=== PATIENT | male | born 1960 | race Caucasian/White ===

== ENCOUNTER → 2021-12-05 15:13 | Outpatient (BNVA) | payer OTHER, SELFPAY | PROVIDERS: Visit Provider Nurse Practitioner Family ==

== ENCOUNTER → 2021-12-13 13:48 | Outpatient (BNVA) | payer OTHER, SELFPAY | PROVIDERS: PCP Internal Medicine; Visit Provider Psychiatry & Neurology Neurology | DX: G43.711 Chronic migraine without aura, intractable, with status migrainosus (principal) | CPT/HCPCS: 64615; J0585 ==

== ENCOUNTER → 2022-03-14 13:25 | Outpatient (BNVA) | payer OTHER, SELFPAY | PROVIDERS: PCP Internal Medicine; Visit Provider Psychiatry & Neurology Neurology | DX: G43.711 Chronic migraine without aura, intractable, with status migrainosus (principal) | CPT/HCPCS: 64615; J0585 ==

== ENCOUNTER → 2022-06-15 13:52 | Outpatient (BNVA) | payer OTHER, SELFPAY | PROVIDERS: PCP Internal Medicine; Visit Provider Psychiatry & Neurology Neurology | DX: G43.711 Chronic migraine without aura, intractable, with status migrainosus (principal) | CPT/HCPCS: 64615; J0585 ==

== ENCOUNTER → 2022-09-19 13:57 | Outpatient (BNVA) | payer OTHER, SELFPAY | PROVIDERS: PCP Internal Medicine; Visit Provider Psychiatry & Neurology Neurology | DX: G43.119 Migraine with aura, intractable, without status migrainosus (principal); G43.711 Chronic migraine without aura, intractable, with status migrainosus | CPT/HCPCS: 64615; J0585 ==

== ENCOUNTER → 2022-10-20 14:32 | Outpatient (BNVA) | payer OTHER, SELFPAY | PROVIDERS: PCP Internal Medicine; Visit Provider Nurse Practitioner Family | DX: Z13.89 Encounter for screening for other disorder (principal) ==

== ENCOUNTER → 2022-12-19 13:52 | Outpatient (BNVA) | payer OTHER, SELFPAY | PROVIDERS: PCP Internal Medicine; Visit Provider Psychiatry & Neurology Neurology | DX: G43.711 Chronic migraine without aura, intractable, with status migrainosus (principal) | CPT/HCPCS: 64615; J0585 ==

== ENCOUNTER → 2023-01-16 14:51 | Outpatient (BNVA) | payer OTHER, SELFPAY | PROVIDERS: PCP Internal Medicine; Visit Provider Nurse Practitioner Family | DX: Z13.89 Encounter for screening for other disorder (principal) ==

== ENCOUNTER → 2023-03-22 12:24 | Outpatient (BNVA) | payer OTHER, SELFPAY | PROVIDERS: PCP Internal Medicine; Visit Provider Psychiatry & Neurology Neurology | DX: G43.711 Chronic migraine without aura, intractable, with status migrainosus (principal); Z79.899 Other long term (current) drug therapy | CPT/HCPCS: 64615; J0585 ==

== ENCOUNTER 2023-04-23 11:31 | Outpatient (AMB) | payer OTHER, SELFPAY ==
[2023-04-23 11:43] VITALS: BP 110/78; PULSE 63; O2SAT 97; BMI 27.3
--- NOTE | 2023-04-23 11:43 | A.OFFVIS_ITS ---
Intake Vital Signs 04/23/23 11:43 Height 5 ft 10 in Weight 190 lb 2 oz BMI 27.3 BP 110/78 Blood Pressure Location Lt brachial Position Sitting Pulse 63 Pulse Source Pulse Oximeter Pulse Oximetry (%) 97 Oxygen Delivery Method Room Air Intake Visit Reasons: 3m follow up Intake Note: Pt presents as a 3 month f/u. the last 8 days have been problematic, a little more stress than usual and trouble with humidity. Office Specialist Required: No Allergies No Known Allergies Allergy (Verified 04/23/23 11:46) HPI HPI Comments History of Present Illness Details 62-yr-old male presents for f/u visit. Pt denies any significant interval medical changes. Pt states he is doing well w/ his current migraine routine, has had a slight increase in headaches over the last 8 days r/t some increased stress and increased humidity/weather changes. Pt reports prior to starting Botox- was having daily headache w/ significant disability (missing work, missing family activities) and needed to take acute migraine/headache medication at least 3 times a week. On just Botox, he had residual episodic migraines- however migraines still lasted up to 3 days and did not respond as well to his acute migraine medications. On current Botox and Nurtec ODT 75mg qod for prevention regimen- He has has 2 severe migraine days a month. 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 [employer] Review of Systems Const All systems reviewed & are unremarkable except as noted in HPI and below Physical Exam Vital Signs: Last Vital Signs Pulse 63 04/23/23 11:43 BP 110/78 04/23/23 11:43 Pulse Ox 97 04/23/23 11:43 Oxygen Delivery Method Room Air 04/23/23 11:43 BMI result Body Mass Index 27.3 Const General: cooperative and no acute distress Orientation/consciousness: patient oriented x3 HEENT Head: Yes normocephalic Resp Effort & Inspection: normal respiratory effort and able to speak in complete sentences Neuro General: patient oriented x3, gait normal and CN's II-XI intact bilaterally Cognition (Neuro): normal cognition Motor exam (neuro): 5/5 motor strength present throughout Psych Appearance: grossly normal Mental Status: mental status grossly normal Speech and movement: Normal speech and movement present Affect: normal affect Attitude: cooperative Thought process: Normal thought process present Thought content: Normal thought content present Insight: Good insight present (Psych) Judgement: Good judgement present (Psych) Assessment & Plan Assessment & Plan (1) Chronic migraine without aura: Code(s): G43.709 - Chronic migraine without aura, not intractable, without status migrainosus (2) Tremor: Code(s): R25.1 - Tremor, unspecified (3) Migraine with aura: Code(s): G43.109 - Migraine with aura, not intractable, without status migrainosus (4) Photophobia: Code(s): H53.149 - Visual discomfort, unspecified Plan For acute migraine tx: Continue Zomig 5mg nasal spray- 1 spray into 1 nostril, may repeat in 2 hours (max 2 sprays per day). May adjunct w/ Naproxen. Continue Ubrelvy 50-100mg at onset of migraine, may repeat in 2 hrs (max 200mg/day). May adjunct w/ Naproxen or Zomig. Previous acute migraine trials:?imitrex, relpax, maxalt, amerge , midrin, zomig tablet- not fully effective ? For migraine prevention: Start Nerivio- 1 tx qod for rpevention- and may use qd prn. Continue Nurtec ODT 75mg qod. Continue Botox 155 units IM q 3 months. Continue Propranolol ER 60mg qhs- would not increase further d/t pt has intermittent SOB and asthma. Continue Depakote 500mg qd- ordered for mood, would not increase further d/t pt has tremor s/s. Previous preventive migraine tx trials: Amitriptyline, topiramate , verapramil, gabapentin- ineffective. atogepant- not tolerated- nausea/GI upset/ ? f/u? as scheduled for next Botox tx, and in 3 months w/ PAIRER INSPECTOR. Coding Level of Care Code Est Pt Level 4 (81551) Diagnoses Chronic migraine without aura G43.709 Tremor R25.1 Migraine with aura G43.109 Photophobia H53.149
== END 2023-04-23 12:28 | disposition home or self-care (01) ==
PROVIDERS: Visit Provider Nurse Practitioner Family
DX: G43.709 Chronic migraine without aura, not intractable, without status migrainosus (principal); R25.1 Tremor, unspecified; G43.109 Migraine with aura, not intractable, without status migrainosus; H53.149 Visual discomfort, unspecified
CPT/HCPCS: 99214

== ENCOUNTER → 2023-04-23 11:31 | Outpatient (BNVA) | payer OTHER, SELFPAY | PROVIDERS: Visit Provider Nurse Practitioner Family ==

== ENCOUNTER 2023-06-28 07:28 | Outpatient (AMB) | payer OTHER, SELFPAY ==
--- NOTE | 2023-06-28 07:33 | MHC.OFFVIS ---
Intake Vital Signs 06/28/23 07:35 Weight 194 lb 8 oz BP 86/52 L Blood Pressure Location Rt brachial Position Sitting Pulse 52 Pulse Source Pulse Oximeter Pulse Oximetry (%) 100 Oxygen Delivery Method Room Air Intake Visit Reasons: BOTOX-confirmed Intake Note: Botox Injection Lamp Stack Developer Required: No Allergies No Known Allergies Allergy (Verified 06/28/23 07:33) Medication List - Last Reconciled 06/28/23 by Yvette Smith MD atorvastatin 10 mg PO DAILY divalproex ER 250mg in the am, 500 mg orally at night; escitalopram oxalate 5 mg PO DAILY propranolol ER 60 mg PO DAILY quetiapine 100 mg PO DAILY rimegepant 75 mg PO Q OTHER DAY sumatriptan succinate 0 mg PO tadalafil 5 mg PO DAILY ubrogepant 1/2 - 1 tab at onset of migraine, may repeat in 2 hours (max 200mg/day) orally ; PRN; 90 days zolmitriptan (Zomig) 1 spray intranasal Q2H PRN 30 days HPI HPI Comments History of Present Illness Details ? 62y/o female comes for treatment of migraines with botox. He is on Zomig 5mg nasal spray- 1 spray into 1 nostril, may repeat in 2 hours (max 2 sprays per day). May adjunct w/ Naproxen. Ubrelvy 50-100mg at onset of migraine, may repeat in 2 hrs (max 200mg/day). May adjunct w/ Naproxen. Previous acute migraine trials:?imitrex, relpax, maxalt, amerge , midrin, zomig tablet- not fully effective For migraine prevention: Nurtec ODT 75mg qod. Botox 155 units IM q 3 months. Propranolol ER 60mg qhs- would not increase further d/t pt has intermittent SOB and asthma. Depakote 500mg qd- His headache days have decreased to 1-2/month with the above regimen. Most frequent reported adverse reactions following injection of botox for chronic migraine include neck pain (9%), headache(5%), eyelid ptosis(4%), migraine(4%), muscular weakness(4%), musculuskeletal stiffness(4%), bronchitis(3%), injection site pain (3%), musculoskeletal pain(3%), myalgia(3%), facial paresis(2%), HTN(2%) and muscle spasms(2%) were discussed in detail. ??? Botulinum toxin typeA 200units Lot no C [id number] expiration 2025 was diluted with 4 cc of normal saline . ??? Muscles injected- ??? Frontalis 4 sites ??? Procerus 1 site ??? Museum Attendant- 2 sites ??? Temporalis- 8 sites ??? Occipitalis- 6 sites ??? Cervical paraspinals- 4 sites ??? Trapezius- 6 sites- 10 units each ??? 5 units each in 31 site ??? Total use- 185units ??? 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[employer] Physical Exam Vital Signs: Last Vital Signs Pulse 52 06/28/23 07:35 BP 86/52 L 06/28/23 07:35 Pulse Ox 100 06/28/23 07:35 Oxygen Delivery Method Room Air 06/28/23 07:35 Const General: cooperative and no acute distress Orientation/consciousness: patient oriented x3 HEENT Head: Yes normocephalic Resp Effort & Inspection: normal respiratory effort and able to speak in complete sentences Neuro General: patient oriented x3, gait normal and CN's II-XI intact bilaterally Cognition (Neuro): normal cognition Motor exam (neuro): 5/5 motor strength present throughout Office Procedures Botulinum toxin Injection 16103 - Migraine Procedure code (CPT) selection complete Office Meds onabotulinumtoxinA 200 unit solution for injection Performing Provider: Yvette Smith MD Performing Location: [facility] Administered by: Yvette Smith MD on 06/28/23 08:07 Dose Route Admin Location Dispensed Lot Number Expiration Date [facility] Oil Field Operator 185 unit subcut 200 units [id number] 11/08/25 2488-4237-09 ALLERGAN/BOTOX Comments: see HPI Assessment & Plan Assessment & Plan (1) Chronic migraine without aura, intractable, with status migrainosus: Code(s): G43.711 - Chronic migraine without aura, intractable, with status migrainosus (2) Migraine with aura, intractable, without status migrainosus: Code(s): G43.119 - Migraine with aura, intractable, without status migrainosus Plan Patient tolerated the procedure well He will call with any side effects The tremors are likely exaggerated physiological tremors - will follow up clinically Orders: Orders AMB Botulinum toxin Injection Today G43.709 - Chronic migraine without aura, not intractable, without status migrainosus Coding Level of Care Code Est Pt Level 1 (54932) Diagnoses Chronic migraine without aura, intractable, with status migrainosus G43.711 Migraine with aura, intractable, without status migrainosus G43.119 CPT Codes Botox Injection - Botox 3: 46184 - Migraine ([id number])
[2023-06-28 07:35] VITALS: BP 86/52; PULSE 52; O2SAT 100
== END 2023-06-28 08:03 | disposition home or self-care (01) ==
PROVIDERS: PCP Internal Medicine; Visit Provider Psychiatry & Neurology Neurology
DX: G43.711 Chronic migraine without aura, intractable, with status migrainosus (principal)
CPT/HCPCS: 64615

== ENCOUNTER → 2023-06-28 07:28 | Outpatient (BNVA) | payer OTHER, SELFPAY | PROVIDERS: PCP Internal Medicine; Visit Provider Psychiatry & Neurology Neurology | DX: G43.711 Chronic migraine without aura, intractable, with status migrainosus (principal); G43.119 Migraine with aura, intractable, without status migrainosus | CPT/HCPCS: 64615; 99211; J0585 ==

== ENCOUNTER 2023-08-06 11:23 | Outpatient (AMB) | payer OTHER, SELFPAY ==
--- NOTE | 2023-08-06 11:25 | A.OFFVIS_ITS ---
Intake Vital Signs 08/06/23 11:26 Height 5 ft 10 in Weight 193 lb BMI 27.7 BP 112/76 Blood Pressure Location Rt brachial Position Sitting Intake Visit Reasons: 3m follow up-Confirmed Intake Note: Patient presents for 3 month follow up. Patient states no issues or concerns today. Allergies No Known Allergies Allergy (Verified 08/06/23 11:28) Medication List - Last Reconciled 08/06/23 by STARLA Sosa atorvastatin 10 mg PO DAILY divalproex ER 250mg in the am, 500 mg orally at night; escitalopram oxalate 5 mg PO DAILY propranolol ER 60 mg PO DAILY quetiapine 100 mg PO DAILY rimegepant 75 mg PO Q OTHER DAY sumatriptan succinate 0 mg PO tadalafil 5 mg PO DAILY ubrogepant 1/2 - 1 tab at onset of migraine, may repeat in 2 hours (max 200mg/d ay) orally ; PRN; 90 days zolmitriptan (Zomig) 1 spray intranasal Q2H PRN 30 days HPI HPI Comments History of Present Illness Details 62-yr-old male presents for f/u visit. Pt denies any significant interval medical changes. He did have a mild head cold 2 weeks ago- has some residual cough. Pt reports he is doing overall well in terms of migraine- states the Botox is quite helpful. He has had a few breakthrough migraine attacks which lasted 2-3 days- rated < 5/10. One of which was triggered by the above cold. Usually the migraine does respond to his usual as needed meds. However, last Sun, the migraine did not respond to his usual acute tx. He was able to work but was very phonophobic- usually quite photophobic during migraine. Uses ear plugs to sleep. He has started using the Nerivio, which has been helpful outside of the last migraine attack. He is using the Ubrelvy with it. Still using the Zomig for more severe migarien. He stopped the Nurtec- was not helpful and co-pay increased to $75. 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 Review of Systems Const All systems reviewed & are unremarkable except as noted in HPI and below Physical Exam Vital Signs: Last Vital Signs BP 112/76 08/06/23 11:26 BMI result Body Mass Index 27.7 Const General: cooperative and no acute distress Orientation/consciousness: patient oriented x3 HEENT Head: Yes normocephalic Resp Effort & Inspection: normal respiratory effort and able to speak in complete sentences Neuro General: patient oriented x3, gait normal and CN's II-XI intact bilaterally Cognition (Neuro): normal cognition Motor exam (neuro): 5/5 motor strength present throughout Psych Appearance: grossly normal Mental Status: mental status grossly normal Speech and movement: Normal speech and movement present Affect: normal affect Attitude: cooperative Thought process: Normal thought process present Thought content: Normal thought content present Insight: Good insight present (Psych) Judgement: Good judgement present (Psych) Assessment & Plan Assessment & Plan (1) Chronic migraine without aura, intractable, with status migrainosus: Code(s): G43.711 - Chronic migraine without aura, intractable, with status migrainosus (2) Phonophobia: Code(s): F40.298 - Other specified phobia Plan For acute migraine tx: Try ear plugs during migraine- such as loop engage. Continue Zomig 5mg nasal spray- 1 spray into 1 nostril, may repeat in 2 hours (max 2 sprays per day). May adjunct w/ Naproxen. Continue Ubrelvy 50-100mg at onset of migraine, may repeat in 2 hrs (max 200mg/day). May adjunct w/ Naproxen or Zomig. Previous acute migraine trials:?imitrex, relpax, maxalt, amerge , midrin, zomig tablet- not fully effective ? For migraine prevention: Try to use Nerivio- 1 tx qod for prevention- and may use qd prn. Pt stopped Nurtec ODT 75mg qod. Continue Botox 155 units IM q 3 months. Continue Propranolol ER 60mg qhs- would not increase further d/t pt has intermittent SOB and asthma. Continue Depakote 500mg qd- ordered for mood, would not increase further d/t pt has tremor s/s. Previous preventive migraine tx trials: Amitriptyline, topiramate , verapramil, gabapentin- ineffective. atogepant- not tolerated- nausea/GI upset/ ? f/u? as scheduled for next Botox tx, and in 6 months w/ MECHANICAL AND AUTO BODY CAR CHECKER. Medications: New onabotulinumtoxinA (Botox) inject 155 units IM across forehead, scalp, and neck 200 units IM ONCE 12 weeks 1 ea 3RF G43.709 - Chronic migraine without aura, not intractable, without status migrainosus Coding Level of Care Code Est Pt Level 4 (20210) Diagnoses Chronic migraine without aura, intractable, with status migrainosus G43.711 Phonophobia F40.298
[2023-08-06 11:26] VITALS: BP 112/76; BMI 27.7
== END 2023-08-06 12:14 | disposition home or self-care (01) ==
PROVIDERS: PCP Internal Medicine; Visit Provider Nurse Practitioner Family
DX: G43.711 Chronic migraine without aura, intractable, with status migrainosus (principal); F40.298 Other specified phobia
CPT/HCPCS: 99214

== ENCOUNTER → 2023-08-06 11:23 | Outpatient (BNVA) | payer OTHER, SELFPAY | PROVIDERS: PCP Internal Medicine; Visit Provider Nurse Practitioner Family ==

== ENCOUNTER 2023-09-27 09:19 | Outpatient (AMB) | payer OTHER, SELFPAY ==
[2023-09-27 09:33] VITALS: BP 90/52; PULSE 52; RESP 16; O2SAT 95; BMI 26.9
--- NOTE | 2023-09-27 09:33 | A.OFFVIS_ITS ---
Intake Vital Signs 09/27/23 09:33 Height 5 ft 10 in Weight 187 lb 4 oz BMI 26.9 BP 90/52 L Blood Pressure Location Lt brachial Position Sitting Respiration 16 Pulse 52 Pulse Source Pulse Oximeter Pulse Oximetry (%) 95 Oxygen Delivery Method Room Air Intake Visit Reasons: Botox appt - LVM Intake Note: Pt presents to the office for Botox injections. Oracle Scm Consultant Required: No Allergies No Known Allergies Allergy (Verified 09/27/23 09:33) HPI HPI Comments History of Present Illness Details ? 62y/o female comes for treatment of migraines with botox. How many migraine days prior to botox 25/month How long do the migraines last 2-3 days Intensity of migraine9/10 ER visits related to migraine 2 Effectiveness of botox from last two treatment(s) How many migraine days since receiving treatment: 1-2/month Change? in intensity of migraine?decreased Change in frequency of migraine?decreased Change in use of acute medication for migraine?decreased Change in quality of life?good ER visits related to migraine? none Have at least three months elapsed since last treatment (Last botox date - f requency of injections)- 06/2023 He is on Zomig 5mg nasal spray- 1 spray into 1 nostril, may repeat in 2 hours (max 2 sprays per day). May adjunct w/ Naproxen. Ubrelvy 50-100mg at onset of migraine, may repeat in 2 hrs (max 200mg/day). May adjunct w/ Naproxen. Previous acute migraine trials:?imitrex, relpax, maxalt, amerge , midrin, zomig tablet- not fully effective For migraine prevention: Nurtec ODT 75mg qod. Botox 155 units IM q 3 months. Propranolol ER 60mg qhs- would not increase further d/t pt has intermittent SOB and asthma. Depakote 500mg qd- His headache days have decreased to 1-2/month with the above regimen. Most frequent reported adverse reactions following injection of botox for chronic migraine include neck pain (9%), headache(5%), eyelid ptosis(4%), migraine(4%), muscular weakness(4%), musculuskeletal stiffness(4%), bronchitis(3%), injection site pain (3%), musculoskeletal pain(3%), myalgia(3%), facial paresis(2%), HTN(2%) and muscle spasms(2%) were discussed in detail. ??? Botulinum toxin typeA 200units Lot no C [id number] expiration 2025 was diluted with 4 cc of normal saline . ??? Muscles injected- ??? Frontalis 4 sites ??? Procerus 1 site ??? Workflow Developer- 2 sites ??? Temporalis- 8 sites ??? Occipitalis- 6 sites ??? Cervical paraspinals- 4 sites ??? Trapezius- 6 sites- 10 units each ??? 5 units each in 31 site ??? Total use- 185units ??? 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 Vital Signs: Last Vital Signs Pulse 52 09/27/23 09:33 Resp 16 09/27/23 09:33 BP 90/52 L 09/27/23 09:33 Pulse Ox 95 09/27/23 09:33 Oxygen Delivery Method Room Air 09/27/23 09:33 BMI result Body Mass Index 26.9 Const General: cooperative and no acute distress Orientation/consciousness: patient oriented x3 HEENT Head: Yes normocephalic Resp Effort & Inspection: normal respiratory effort and able to speak in complete sentences Neuro General: patient oriented x3, gait normal and CN's II-XI intact bilaterally Cognition (Neuro): normal cognition Motor exam (neuro): 5/5 motor strength present throughout Psych Appearance: grossly normal Mental Status: mental status grossly normal Speech and movement: Normal speech and movement present Affect: normal affect Attitude: cooperative Thought process: Normal thought process present Thought content: Normal thought content present Insight: Good insight present (Psych) Judgement: Good judgement present (Psych) Office Procedures Botulinum toxin Injection 44907 - Migraine Procedure code (CPT) selection complete Office Meds onabotulinumtoxinA 200 unit solution for injection Performing Provider: Yvette Smith MD Performing Location[place] [facility] Administered by: Yvette Smith MD on 09/27/23 11:12 Dose Route Admin Location Dispensed Lot Number Expiration Date [facility] Paper Cup Machine Tender 185 unit IM 200 units [id number] 01/06/26 7254-0028-93 ALLERGAN/BOTOX Comments: see hpi Assessment & Plan Assessment & Plan (1) Chronic migraine without aura, intractable, with status migrainosus: Code(s): G43.711 - Chronic migraine without aura, intractable, with status migrainosus (2) Migraine with aura, intractable, without status migrainosus: Code(s): G43.119 - Migraine with aura, intractable, without status migrainosus Plan Patient tolerated the procedure well He will call with any side effects The tremors are likely exaggerated physiological tremors - will follow up clinically Orders: Orders AMB Botulinum toxin Injection Today G43.709 - Chronic migraine without aura, not intractable, without status migrainosus Coding Level of Care Code Est Pt Level 1 (98338) Diagnoses Chronic migraine without aura, intractable, with status migrainosus G43.711 Migraine with aura, intractable, without status migrainosus G43.119 CPT Codes Botox Injection - Botox 3: 87328 - Migraine ([id number])
== END 2023-09-27 09:54 | disposition home or self-care (01) ==
PROVIDERS: PCP Internal Medicine; Visit Provider Psychiatry & Neurology Neurology
DX: G43.711 Chronic migraine without aura, intractable, with status migrainosus (principal)
CPT/HCPCS: 64615

== ENCOUNTER → 2023-09-27 09:19 | Outpatient (BNVA) | payer OTHER, SELFPAY | PROVIDERS: PCP Internal Medicine; Visit Provider Psychiatry & Neurology Neurology | DX: G43.711 Chronic migraine without aura, intractable, with status migrainosus (principal); G43.119 Migraine with aura, intractable, without status migrainosus | CPT/HCPCS: 64615; 99211; J0585 ==

== ENCOUNTER 2023-12-27 10:18 | Outpatient (AMB) | payer OTHER, SELFPAY ==
[2023-12-27 10:20] VITALS: PULSE 65; RESP 16
--- NOTE | 2023-12-27 10:20 | A.OFFVIS_ITS ---
Intake Vital Signs 12/27/23 10:20 Respiration 16 Pulse 65 Pulse Source Palpation Intake Visit Reasons: Botox appt-LVM Intake Note: Pt presents to the office for Botox injections. Block Saw Operator Required: No Allergies No Known Allergies Allergy (Verified 12/27/23 10:20) Medication List - Last Reconciled 12/27/23 by Yvette Smith MD atorvastatin 10 mg PO DAILY divalproex ER 250mg in the am, 500 mg orally at night; escitalopram oxalate 5 mg PO DAILY onabotulinumtoxinA (Botox) 200 units IM ONCE 12 weeks propranolol ER 60 mg PO DAILY quetiapine 100 mg PO DAILY sumatriptan succinate 0 mg PO tadalafil 5 mg PO DAILY ubrogepant 1/2 - 1 tab at onset of migraine, may repeat in 2 hours (max 200mg/day) orally ; PRN; 90 days zolmitriptan (Zomig) 1 spray intranasal Q2H PRN 30 days HPI HPI Comments History of Present Illness Details ? 63y/o male comes for treatment of migraines with botox. How many migraine days prior to botox 25/month How long do the migraines last 2-3 days Intensity of migraine06/17 ER visits related to migraine 2 Effectiveness of botox from last two treatment(s) How many migraine days since receiving treatment: 1-2/month Change? in intensity of migraine?decreased Change in frequency of migraine?decreased Change in use of acute medication for migraine?decreased Change in quality of life?good ER visits related to migraine? none Have at least three months elapsed since last treatment (Last botox date - frequency of injections)- 06/2023 He is on Zomig 5mg nasal spray- 1 spray into 1 nostril, may repeat in 2 hours (max 2 sprays per day). May adjunct w/ Naproxen. Ubrelvy 50-100mg at onset of migraine, may repeat in 2 hrs (max 200mg/day). May adjunct w/ Naproxen. Previous acute migraine trials:?imitrex, relpax, maxalt, amerge , midrin, zomig tablet- not fully effective For migraine prevention: Nurtec ODT 75mg qod. Botox 155 units IM q 3 months. Propranolol ER 60mg qhs- would not increase further d/t pt has intermittent SOB and asthma. Depakote 500mg qd- His headache days have decreased to 1-2/month with the above regimen. Most frequent reported adverse reactions following injection of botox for chronic migraine include neck pain (9%), headache(5%), eyelid ptosis(4%), josé miguel nadeen(4%), muscular weakness(4%), musculuskeletal stiffness(4%), bronchitis(3%), injection site pain (3%), musculoskeletal pain(3%), myalgia(3%), facial paresis(2%), HTN(2%) and muscle spasms(2%) were discussed in detail. ??? Botulinum toxin typeA 200units Lot no C [id number] expiration 2025 was diluted with 4 cc of normal saline . ??? Muscles injected- ??? Frontalis 4 sites ??? Procerus 1 site ??? Spinneret Person- 2 sites ??? Temporalis- 8 sites ??? Occipitalis- 6 sites ??? Cervical paraspinals- 4 sites ??? Trapezius- 6 sites- 10 units each ??? 5 units each in 31 site ??? Total use- 185units ??? 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 [employer] Physical Exam Vital Signs: Last Vital Signs Pulse 65 12/27/23 10:20 Resp 16 12/27/23 10:20 Const General: cooperative and no acute distress Orientation/consciousness: patient oriented x3 HEENT Head: Yes normocephalic Resp Effort & Inspection: normal respiratory effort and able to speak in complete sentences Neuro General: patient oriented x3, gait normal and CN's II-XI intact bilaterally Cognition (Neuro): normal cognition Motor exam (neuro): 5/5 motor strength present throughout Psych Appearance: grossly normal Mental Status: mental status grossly normal Speech and movement: Normal speech and movement present Affect: normal affect Attitude: cooperative Thought process: Normal thought process present Thought content: Normal thought content present Insight: Good insight present (Psych) Judgement: Good judgement present (Psych) Office Procedures Botulinum toxin Injection 85964 - Migraine Procedure code (CPT) selection complete Office Meds onabotulinumtoxinA 200 unit solution for injection Performing Provider: Yvette Smith MD Performing Location: [facility] [place] [facility] Administered by: Yvette Smith MD on 12/27/23 10:46 Dose Route Admin Location Dispensed Lot Number Expiration Date [facility] Violin Maker Hand 185 unit IM 200 units [id number] 03/08/26 5423-8979-12 ALLERGAN/BOTOX Comments: see HPI Assessment & Plan Assessment & Plan (1) Chronic migraine without aura, intractable, with status migrainosus: Code(s): G43.711 - Chronic migraine without aura, intractable, with status migrainosus (2) Migraine with aura, intractable, without status migrainosus: Code(s): G43.119 - Migraine with aura, intractable, without status migrainosus Plan Patient tolerated the procedure well He will call with any side effects The tremors are likely exaggerated physiological tremors - will follow up clinically Orders: Orders AMB Botulinum toxin Injection - Patient Supplied Today G43.711 - Chronic migraine without aura, intractable, with status migrainosus Coding Level of Care Code Est Pt Level 1 (23647) Diagnoses Chronic migraine without aura, intractable, with status migrainosus G43.711 Migraine with aura, intractable, without status migrainosus G43.119 CPT Codes Botox Injection - Botox 3: 38984 - Migraine ([id number])
== END 2023-12-27 10:46 | disposition home or self-care (01) ==
PROVIDERS: PCP Internal Medicine; Visit Provider Psychiatry & Neurology Neurology
DX: G43.711 Chronic migraine without aura, intractable, with status migrainosus (principal)
CPT/HCPCS: 64615

== ENCOUNTER → 2023-12-27 10:18 | Outpatient (BNVA) | payer OTHER, SELFPAY | PROVIDERS: PCP Internal Medicine; Visit Provider Psychiatry & Neurology Neurology | DX: G43.711 Chronic migraine without aura, intractable, with status migrainosus (principal) | CPT/HCPCS: 64615; 99211; J0585 ==

== ENCOUNTER 2024-02-06 10:47 | Outpatient (AMB) | payer OTHER, SELFPAY ==
--- NOTE | 2024-02-06 10:57 | MHC.OFFVIS ---
Vital Signs 02/06/24 10:58 Height 5 ft 10 in Weight 198 lb BMI 28.4 BP 110/68 Blood Pressure Location Rt brachial Position Sitting Intake Visit Reasons: 6m follow up - Confirmed Intake Note: Patient presents for 6 month follow up. Allergies No Known Allergies Allergy (Verified 02/06/24 11:00) Medication List - Last Reconciled 02/06/24 by STARLA Sosa atorvastatin 10 mg PO DAILY divalproex ER 250mg in the am, 500 mg orally at night; escitalopram oxalate 5 mg PO DAILY onabotulinumtoxinA (Botox) 200 units IM ONCE 12 weeks propranolol ER 60 mg PO DAILY quetiapine 100 mg PO DAILY sumatriptan succinate 0 mg PO tadalafil 5 mg PO DAILY ubrogepant 1/2 - 1 tab at onset of migraine, may repeat in 2 hours (max 200mg/day) orally ; PRN; 90 days zolmitriptan (Zomig) 1 spray intranasal Q2H PRN 30 days HPI Comments Details: 63-yr-old male presents for f/u visit. Pt denies any significant interval medical changes. Pt reports that he has had an increase in migraine attacks in the past 3 weeks, milder and shorter than prior to starting Botox, however these migraine attacks do still interfere with his daily activities. He attributes this to recent weather/barometric weather changes, Passover, and allergy s/s. The phonophobia is the more bothersome migraine s/s, needing to use ear plugs even in low noise environments. Can still have some photophobia, may need sunglasses outside. The Nerivio only works if he catches the migraine very early. May use preventively if he wakes up feeling off. Baseline headache characteristics: Unilateral (frontal/temporal) pressure a/w photophobia, phonophobia, nausea. 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 [employer] Physical Exam Vital Signs: Last Vital Signs BP 110/68 02/06/24 10:58 BMI result Body Mass Index 28.4 Const General: cooperative and no acute distress Orientation/consciousness: patient oriented x3 Resp Effort & Inspection: normal respiratory effort and able to speak in complete sentences Neuro General: patient oriented x3 Cranial nerves: Yes CN's II-XII intact bilaterally Cognition (Neuro): normal cognition Psych Appearance: grossly normal Mental Status: mental status grossly normal Speech and movement: Normal speech and movement present Affect: normal affect Attitude: cooperative Assessment & Plan Assessment & Plan (1) Migraine with aura: Code(s): G43.109 - Migraine with aura, not intractable, without status migrainosus Category: Medical (2) Chronic migraine without aura: Code(s): G43.709 - Chronic migraine without aura, not intractable, without status migrainosus Category: Medical (3) Phonophobia: Code(s): F40.298 - Other specified phobia Category: Medical (4) Tremor: Code(s): R25.1 - Tremor, unspecified Category: Medical Plan For acute migraine tx: Continue using ear plugs during migraine or when in loud environments- such as loop engage. Continue Zomig 5mg nasal spray- 1 spray into 1 nostril, may repeat in 2 hours (max 2 sprays per day). May adjunct w/ Naproxen. Continue Ubrelvy 50-100mg at onset of migraine, may repeat in 2 hrs (max 200mg/day). May adjunct w/ Naproxen or Zomig. Trudhesa 0.725mg/spray prn prolonged migraine attack: 1 actuation in each nostril x1, may repeat dose x1 after 1h intranasally once; (Max: 4 actuations/day, 6 actuations/wk). Do NOT take w/in 24 hrs of a TRIPTAN. Previous acute migraine trials:?imitrex, relpax, maxalt, amerge , midrin, zomig tablet- not fully effective ? For migraine prevention: Continue Nerivio- 1 tx qod for prevention- and may use qd prn. Start Ajovy 225mg sc q month, if tolerated well can switch to 675mg sc q 3 months (mid-botox cycle would likely be most effective). As Botox is helpful, but pt previously had best effect w/ reduced disability and severity of migraine attacks when taking Botox concommitently w/ a CGRP MaB (previously used Aimovg, however Ajovy is on his current insurance plans formulary). Continue Botox 155 units IM q 3 months. Continue Propranolol ER 60mg qhs- would not increase further d/t pt has intermittent SOB and asthma. Continue Depakote 500mg qd- ordered for mood, would not increase further d/t pt has tremor s/s. Previous preventive migraine tx trials: Amitriptyline, topiramate , verapramil, gabapentin- ineffective. atogepant- not tolerated- nausea/GI upset. Nurtec 75mg qod- not fully effective. Aimovig- was helpful, but not as effective as Botox, when he took Aimovig and Botox together had even more benefit than he has now. ? f/u? as scheduled for next Botox tx, and in 6 months w/ DISABILITY EXAMINER. Medications: New dihydroergotamine (Trudhesa) 1 actuation in each nostril x1, may repeat dose x1 after 1h intranasally once; (Max: 4 actuations/day, 6 actuations/wk). Do NOT take w/in 24 hrs of a TRIPTAN. 28 days 4 mL 6RF prolonged migraine G43.109 - Migraine with aura, not intractable, without status migrainosus fremanezumab-vfrm (Ajovy) administer 675mg sc q 3 months 225 mg (1.5 mL) subcut ONCE 90 days 4.5 mL 3RF Coding Level of Care Code Est Pt Level 4 (06075) Diagnoses Migraine with aura G43.109 Chronic migraine without aura G43.709 Phonophobia F40.298 Tremor R25.1
[2024-02-06 10:58] VITALS: BP 110/68; BMI 28.4
== END 2024-02-06 11:46 | disposition home or self-care (01) ==
PROVIDERS: PCP Internal Medicine; Visit Provider Nurse Practitioner Family
DX: G43.109 Migraine with aura, not intractable, without status migrainosus (principal); G43.709 Chronic migraine without aura, not intractable, without status migrainosus; F40.298 Other specified phobia; R25.1 Tremor, unspecified
CPT/HCPCS: 99214

== ENCOUNTER → 2024-02-06 10:47 | Outpatient (BNVA) | payer OTHER, SELFPAY | PROVIDERS: PCP Internal Medicine; Visit Provider Nurse Practitioner Family | DX: G43.709 Chronic migraine without aura, not intractable, without status migrainosus (principal) ==

== ENCOUNTER 2024-04-14 10:57 | Outpatient (AMB) | payer OTHER, SELFPAY ==
--- NOTE | 2024-04-14 11:07 | A.OFFVIS_ITS ---
Vital Signs 04/14/24 11:08 Height 5 ft 10 in Weight 197 lb BMI 28.3 BP 110/62 Blood Pressure Location Rt brachial Position Sitting Respiration 16 Pulse 52 Pulse Source Pulse Oximeter Pulse Oximetry (%) 98 Oxygen Delivery Method Room Air Intake Visit Reasons: Botox-CONF Intake Note: Pt presents to the office for Botox injections. Fourdrinier Operator Required: No Allergies No Known Allergies Allergy (Verified 04/14/24 11:07) Medication List - Last Reconciled 04/14/24 by Yvette Smith MD atorvastatin 10 mg PO DAILY dihydroergotamine (Trudhesa) 1 actuation in each nostril x1, may repeat dose x1 after 1h intranasally once; (Max: 4 actuations/day, 6 actuations/wk). Do NOT take w/in 24 hrs of a TRIPTAN. 28 days divalproex ER 250mg in the am, 500 mg orally at night; escitalopram oxalate 5 mg PO DAILY fremanezumab-vfrm (Ajovy) 225 mg (1.5 mL) subcut ONCE 90 days onabotulinumtoxinA (Botox) 200 units IM ONCE 12 weeks propranolol ER 60 mg PO DAILY quetiapine 100 mg PO DAILY sumatriptan succinate 0 mg PO tadalafil 5 mg PO DAILY ubrogepant 1/2 - 1 tab at onset of migraine, may repeat in 2 hours (max 200mg/day) orally ; PRN; 90 days zolmitriptan (Zomig) 1 spray intranasal Q2H PRN 30 days HPI Comments Details: ? 63y/o male comes for treatment of migraines with botox. How many migraine days prior to botox 25/month How long do the migraines last 2-3 days Intensity of migraine9/10 ER visits related to migraine 2 Effectiveness of botox from last two treatment(s) How many migraine days since receiving treatment: 1-2/month Change? in intensity of migraine?decreased Change in frequency of migraine?decreased Change in use of acute medication for migraine?decreased Change in quality of life?good ER visits related to migraine? none Have at least three months elapsed since last treatment (Last botox date - frequency of injections)- yes He is on Zomig 5mg nasal spray- 1 spray into 1 nostril, may repeat in 2 hours (max 2 sprays per day). May adjunct w/ Naproxen. Ubrelvy 50-100mg at onset of migraine, may repeat in 2 hrs (max 200mg/day). May adjunct w/ Naproxen. Previous acute migraine trials:?imitrex, relpax, maxalt, amerge , midrin, zomig tablet- not fully effective His headache days have decreased to 1-2/month with the above regimen. Most frequent reported adverse reactions following injection of botox for chronic migraine include neck pain (9%), headache(5%), eyelid ptosis(4%), migraine(4%), muscular weakness(4%), musculuskeletal stiffness(4%), bronchitis(3%), injection site pain (3%), musculoskeletal pain(3%), myalgia(3%), facial paresis(2%), HTN(2%) and muscle spasms(2%) were discussed in detail. ??? Botulinum toxin typeA 200units Lot no C [id number] expiration 04/2026 was diluted with 4 cc of normal saline . ??? Muscles injected- ??? Frontalis 4 sites ??? Procerus 1 site ??? Jewelry Sales Representative- 2 sites ??? Temporalis- 8 sites ??? Occipitalis- 6 sites ??? Cervical paraspinals- 4 sites ??? Trapezius- 6 sites- 10 units each ??? 5 units each in 31 site ??? Total use- 185units ??? 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 Vital Signs: Last Vital Signs Pulse 52 04/14/24 11:08 Resp 16 04/14/24 11:08 BP 110/62 04/14/24 11:08 Pulse Ox 98 04/14/24 11:08 Oxygen Delivery Method Room Air 04/14/24 11:08 BMI result Body Mass Index 28.3 Const General: cooperative and no acute distress Orientation/consciousness: patient oriented x3 HEENT Head: Yes normocephalic Resp Effort & Inspection: normal respiratory effort and able to speak in complete sentences Neuro General: patient oriented x3, gait normal and CN's II-XI intact bilaterally Cognition (Neuro): normal cognition Motor exam (neuro): 5/5 motor strength present throughout Office Procedures Botulinum toxin Injection 40841 - Migraine Procedure code (CPT) selection complete Office Meds onabotulinumtoxinA 200 unit solution for injection Performing Provider: Yvette Smith MD [place] [facility] [place] [facility] Administered by: Yvette Smith MD on 04/14/24 15:52 Dose Route Admin Location Dispensed Lot Number Expiration Date [facility] Oil Pump Station Operator Chief 185 unit subcut 200 units [id number] 04/07/26 9212-6761-95 ALLERGAN/BOTOX Comments: see HPI Assessment & Plan Assessment & Plan (1) Chronic migraine without aura, intractable, with status migrainosus: Code(s): G43.711 - Chronic migraine without aura, intractable, with status migrainosus Category: Medical (2) Migraine with aura, intractable, without status migrainosus: Code(s): G43.119 - Migraine with aura, intractable, without status migrainosus Category: Medical Plan Patient tolerated the procedure well He will call with any side effects The tremors are likely exaggerated physiological tremors - will follow up clinically Orders: Orders AMB Botulinum toxin Injection - Patient Supplied Today G43.119 - Migraine with aura, intractable, without status migrainosus Medications: New onabotulinumtoxinA 200 units subcut ONCE 1 ea 0RF migraine G43.119 - Migraine with aura, intractable, without status migrainosus Coding Level of Care Code Est Pt Level 1 (60666) Diagnoses Chronic migraine without aura, intractable, with status migrainosus G43.711 Migraine with aura, intractable, without status migrainosus G43.119 CPT Codes Botox Injection - Botox 3: 80218 - Migraine ([id number])
[2024-04-14 11:08] VITALS: BP 110/62; PULSE 52; RESP 16; O2SAT 98; BMI 28.3
== END 2024-04-14 11:36 | disposition home or self-care (01) ==
PROVIDERS: PCP Internal Medicine; Visit Provider Psychiatry & Neurology Neurology
DX: G43.E19 Chronic migraine with aura, intractable, without status migrainosus (principal)
CPT/HCPCS: 64615

== ENCOUNTER → 2024-04-14 10:57 | Outpatient (BNVA) | payer OTHER, SELFPAY | PROVIDERS: PCP Internal Medicine; Visit Provider Psychiatry & Neurology Neurology | DX: G43.E11 Chronic migraine with aura, intractable, with status migrainosus (principal) | CPT/HCPCS: 64615; 99211; J0585 ==

== ENCOUNTER 2024-07-22 09:52 | Outpatient (AMB) | payer OTHER, SELFPAY ==
--- NOTE | 2024-07-22 10:00 | MHC.OFFVIS ---
Intake Visit Reasons: Botox Intake Note: Patient presents for botox injection Allergies No Known Allergies Allergy (Verified 07/22/24 10:00) Medication List - Last Reconciled 07/22/24 by Yvette Smith MD atorvastatin 10 mg PO DAILY dihydroergotamine (Trudhesa) 1 actuation in each nostril x1, may repeat dose x1 after 1h intranasally once; (Max: 4 actuations/day, 6 actuations/wk). Do NOT take w/in 24 hrs of a TRIPTAN. 28 days divalproex ER 250mg in the am, 500 mg orally at night; escitalopram oxalate 5 mg PO DAILY fremanezumab-vfrm (Ajovy) 225 mg (1.5 mL) subcut ONCE 90 days onabotulinumtoxinA (Botox) 200 units IM ONCE 12 weeks propranolol ER 60 mg PO DAILY quetiapine 100 mg PO DAILY sumatriptan succinate 0 mg PO sumatriptan succinate 11 mg intranasal ONCE 30 days sumatriptan succinate (Zembrace Symtouch) 3 mg (0.5 mL) subcut Q1H PRN 30 days tadalafil 5 mg PO DAILY ubrogepant 1/2 - 1 tab at onset of migraine, may repeat in 2 hours (max 200mg/day) orally ; PRN; 90 days zolmitriptan (Zomig) 1 spray intranasal Q2H PRN 30 days HPI Comments Details: ? 63y/o male comes for treatment of migraines with botox. How many migraine days prior to botox 25/month How long do the migraines last 2-3 days Intensity of migraine9/10 ER visits related to migraine 2 Effectiveness of botox from last two treatment(s) How many migraine days since receiving treatment: 1-2/month Change? in intensity of migraine?decreased Change in frequency of migraine?decreased Change in use of acute medication for migraine?decreased Change in quality of life?good ER visits related to migraine? none Have at least three months elapsed since last treatment (Last botox date - frequency of injections)- yes He is on Zomig 5mg nasal spray- 1 spray into 1 nostril, may repeat in 2 hours (max 2 sprays per day). May adjunct w/ Naproxen. Ubrelvy 50-100mg at onset of migraine, may repeat in 2 hrs (max 200mg/day). May adjunct w/ Naproxen. Previous acute migraine trials:?imitrex, relpax, maxalt, amerge , midrin, zomig tablet- not fully effective His headache days have decreased to 1-2/month with the above regimen. Most frequent reported adverse reactions following injection of botox for chronic migraine include neck pain (9%), headache(5%), eyelid ptosis(4%), migraine(4%), muscular weakness(4%), musculuskeletal stiffness(4%), bronchitis(3%), injection site pain (3%), musculoskeletal pain(3%), myalgia(3%), facial paresis(2%), HTN(2%) and muscle spasms(2%) were discussed in detail. ??? Botulinum toxin typeA 200units Lot no [id number] expiration 11/2026 was diluted with 4 cc of normal saline . ??? Muscles injected- ??? Frontalis 4 sites ??? Procerus 1 site ??? Rural Electrification Engineer- 2 sites ??? Temporalis- 8 sites ??? Occipitalis- 6 sites ??? Cervical paraspinals- 4 sites ??? Trapezius- 6 sites- 10 units each ??? 5 units each in 31 site ??? Total use- 185units ??? 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 Const General: cooperative and no acute distress Orientation/consciousness: patient oriented x3 HEENT Head: Yes normocephalic Resp Effort & Inspection: normal respiratory effort and able to speak in complete sentences Neuro General: patient oriented x3, gait normal and CN's II-XI intact bilaterally Cognition (Neuro): normal cognition Motor exam (neuro): 5/5 motor strength present throughout Office Procedures Botulinum toxin Injection 48857 - Migraine Procedure code (CPT) selection complete Office Meds onabotulinumtoxinA 200 unit solution for injection Performing Provider: Yvette Smith MD Performing Location: [facility] [place] [facility] Administered by: Yvette Smith MD on 07/22/24 10:17 Dose Route Admin Location Dispensed Lot Number Expiration Date [facility] Foster Care Worker 185 unit subcut 200 units [id number] 11/08/26 5693-6236-05 ALLERGAN/BOTOX Comments: see hpi Assessment & Plan Assessment & Plan (1) Chronic migraine without aura, intractable, with status migrainosus: Code(s): G43.711 - Chronic migraine without aura, intractable, with status migrainosus Category: Medical (2) Migraine with aura, intractable, without status migrainosus: Code(s): G43.119 - Migraine with aura, intractable, without status migrainosus Category: Medical Plan Patient tolerated the procedure well He will call with any side effects The tremors are likely exaggerated physiological tremors - will follow up clinically Orders: Orders AMB Botulinum toxin Injection - Patient Supplied Today G43.711 - Chronic migraine without aura, intractable, with status migrainosus Medications: New onabotulinumtoxinA 200 units subcut ONCE 1 ea 0RF migraine G43.711 - Chronic migraine without aura, intractable, with status migrainosus Coding Level of Care Code Est Pt Level 1 (72111) Diagnoses Chronic migraine without aura, intractable, with status migrainosus G43.711 Migraine with aura, intractable, without status migrainosus G43.119 CPT Codes Botox Injection - Botox 3: 81900 - Migraine ([id number])
== END 2024-07-22 10:16 | disposition home or self-care (01) ==
PROVIDERS: PCP Internal Medicine; Visit Provider Psychiatry & Neurology Neurology
DX: G43.711 Chronic migraine without aura, intractable, with status migrainosus (principal)
CPT/HCPCS: 64615

== ENCOUNTER → 2024-07-22 09:52 | Outpatient (BNVA) | payer OTHER, SELFPAY | PROVIDERS: PCP Internal Medicine; Visit Provider Psychiatry & Neurology Neurology | DX: G43.711 Chronic migraine without aura, intractable, with status migrainosus (principal) | CPT/HCPCS: 64615; 99211; J0585 ==

== ENCOUNTER 2024-10-29 10:24 | Outpatient (AMB) | payer OTHER, SELFPAY ==
--- NOTE | 2024-10-29 10:26 | A.OFFVIS_ITS ---
Vital Signs 10/29/24 10:28 Height 5 ft 10 in Weight 197 lb BMI 28.3 Intake Visit Reasons: Botox Intake Note: Patient presents for botox injection Allergies No Known Allergies Allergy (Verified 10/29/24 10:38) Medication List - Last Reconciled 10/29/24 by Yvette Smith MD atorvastatin 10 mg PO DAILY dihydroergotamine (Trudhesa) 1 actuation in each nostril x1, may repeat dose x1 after 1h intranasally once; (Max: 4 actuations/day, 6 actuations/wk). Do NOT take w/in 24 hrs of a TRIPTAN. 28 days divalproex ER 250mg in the am, 500 mg orally at night; escitalopram oxalate 5 mg PO DAILY fremanezumab-vfrm (Ajovy) 225 mg (1.5 mL) subcut ONCE 90 days onabotulinumtoxinA (Botox) 200 units IM ONCE 12 weeks propranolol ER 60 mg PO DAILY quetiapine 100 mg PO DAILY sumatriptan succinate 0 mg PO sumatriptan succinate 11 mg intranasal ONCE 30 days sumatriptan succinate (Zembrace Symtouch) 3 mg (0.5 mL) subcut Q1H PRN 30 days tadalafil 5 mg PO DAILY ubrogepant 1/2 - 1 tab at onset of migraine, may repeat in 2 hours (max 200mg/day) orally ; PRN; 90 days zolmitriptan (Zomig) 1 spray intranasal Q2H PRN 30 days HPI Comments Details: ? 63y/o male comes for treatment of migraines with botox. How many migraine days prior to botox 25/month How long do the migraines last 2-3 days Intensity of migraine9/10 ER visits related to migraine 2 Effectiveness of botox from last two treatment(s) How many migraine days since receiving treatment: 1-2/month Change? in intensity of migraine?decreased Change in frequency of migraine?decreased Change in use of acute medication for migraine?decreased Change in quality of life?good ER visits related to migraine? none Have at least three months elapsed since last treatment (Last botox date - frequency of injections)- yes He is on Zomig 5mg nasal spray- 1 spray into 1 nostril, may repeat in 2 hours (max 2 sprays per day). May adjunct w/ Naproxen. Ubrelvy 50-100mg at onset of migraine, may repeat in 2 hrs (max 200mg/day). May adjunct w/ Naproxen. Previous acute migraine trials:?imitrex, relpax, maxalt, amerge , midrin, zomig tablet- not fully effective His headache days have decreased to 1-2/month with the above regimen. Most frequent reported adverse reactions following injection of botox for chronic migraine include neck pain (9%), headache(5%), eyelid ptosis(4%), migraine(4%), muscular weakness(4%), musculuskeletal stiffness(4%), bronchitis(3%), injection site pain (3%), musculoskeletal pain(3%), myalgia(3%), facial paresis(2%), HTN(2%) and muscle spasms(2%) were discussed in detail. ??? Botulinum toxin typeA 200units Lot no [id number] expiration 12/2026 was diluted with 4 cc of normal saline . ??? Muscles injected- ??? Frontalis 4 sites ??? Procerus 1 site ??? Packing Line Operator- 2 sites ??? Temporalis- 8 sites ??? Occipitalis- 6 sites ??? Cervical paraspinals- 4 sites ??? Trapezius- 6 sites- 10 units each ??? 5 units each in 31 site ??? Total use- 185units ??? 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 Physical Exam Vital Signs: BMI result Body Mass Index 28.3 Const General: cooperative and no acute distress Orientation/consciousness: patient oriented x3 HEENT Head: Yes normocephalic Resp Effort & Inspection: normal respiratory effort and able to speak in complete se ntences Neuro General: patient oriented x3, gait normal and CN's II-XI intact bilaterally Cognition (Neuro): normal cognition Motor exam (neuro): 5/5 motor strength present throughout Office Procedures Botulinum toxin Injection 87123 - Migraine Procedure code (CPT) selection complete Office Meds onabotulinumtoxinA 200 unit solution for injection Performing Provider: Yvette Smith MD Performing Location: [facility] Administered by: Yvette Smith MD on 10/29/24 10:54 Dose Route Admin Location Dispensed Lot Number Expiration Date [facility] Organ Teacher 185 unit subcut 200 units [id number] 12/06/26 7802-7414-11 ALLERGAN/BOTOX Comments: see HPI Assessment & Plan Assessment & Plan (1) Chronic migraine without aura, intractable, with status migrainosus: Code(s): G43.711 - Chronic migraine without aura, intractable, with status migrainosus Category: Medical (2) Migraine with aura, intractable, without status migrainosus: Code(s): G43.119 - Migraine with aura, intractable, without status migrainosus Category: Medical Plan Patient tolerated the procedure well He will call with any side effects The tremors are likely exaggerated physiological tremors - will follow up clinically Orders: Orders AMB Botulinum toxin Injection Today G43.119 - Migraine with aura, intractable, without status migrainosus Medications: New onabotulinumtoxinA 200 units subcut ONCE 1 ea 0RF migraine G43.119 - Migraine with aura, intractable, without status migrainosus Coding Level of Care Code Est Pt Level 1 (19512) Diagnoses Chronic migraine without aura, intractable, with status migrainosus G43.711 Migraine with aura, intractable, without status migrainosus G43.119 CPT Codes Botox Injection - Botox 3: 44282 - Migraine ([id number])
[2024-10-29 10:28] VITALS: BMI 28.3
--- OUTSIDE RECORDS SUMMARY | 2024-10-29 11:29 | XMS_ITS | Data Portability ---
Author Organization [place] [facility], Allergy Address [address] [place] [address] Care Team Providers Care Chart Calculator Name Role Phone MEDHAT SANTOS Primary Care Provider Assessment Encounter Date Assessment Date Assessment LastModified by Organization Details LastModified Time 08/07/2024 08/07/2024 Discussed various types, models and levels of technology. patient is interested in best technology in rechargeable option. Recommended Widex Moment 440 Smart ADALGISA R hearing aids. 2540 deposit/2540 due. Not available 08/07/2024 10:48:10 09/11/2024 09/11/2024 Excellent fit to real ear. Reviewed daily care and maintenance. Downloaded and reviewed gomez. Reset to #2 adaptation for comfort / f/u 2 weels [email or web address] Not available 09/11/2024 15:51:10 09/22/2024 09/22/2024 increased to #4 adaptation for better clarity. Hearing so much better, is really pleased with new aids. Reviewed use of gomez. F/u 2 weeks. [email or web address] Not available 09/22/2024 15:06:17 10/15/2024 10/15/2024 Patient getting excessive battery drain, cutting in/out left aid. Will do repaid repair. Patient fine with going to [facility] for sooner PU. Will transfer settings/relink aid upon arrival. Not available 10/15/2024 09:57:00 10/23/2024 10/23/2024 Was getting excessive battery drain on left aid. Did rapid repair/replacem ent. Transferred settings and relinked aids to [employer] . f/u 2 weeks [email or web address] Not available 10/23/2024 13:35:54 Plan of Treatment Reminders Order Date Submit Date Provider Last Modified By Organization Details Last Modified Time Details Appointments RAMÍREZ Initial Fitting 2024 09:00A M EMMIE JENSEN Not available Not available Not available RAMÍREZ Fitting Follow Up (60) 2024 02:00P M EMMIE JENSEN Not available Not available Not available Lab None recorded . Referral None recorded . Procedures None recorded . Surgeries None recorded . Imaging None recorded . Medication Orders None recorded . Patient TargetsNo targets recorded. Patient InstructionsNo instructions recorded. Reason for Referral None Reported. Problems Name Problem SNOMED Code Status Onset Date Resolution Date Notes Provider Name and Address Organization Details Recorded Time Dyspnea 094983648 Active 2021 Other forms of dyspnea; Note: Date Diagnose d: 2 10:22 AM (R06.09) Not Available [facility] 4 03:28:10 Gastroeso phageal reflux disease without esophagit is 863192999 Active 2021 Gastro-e sophagea l reflux disease without esophagi tis; Note: Date Diagnose d: 2 10:22 AM (K21.9) Not Available [facility] 4 03:28:10 Sensorine ural hearing loss 29191556 Active 2023 PIERRE SULTANA, AUD [address] [facility],[place] [address], [place], [address] , [facility] - [facility] 4 10:41:54 Mixed conductiv e and sensorine ural hearing loss of left ear [id number] 07 Active 2023 PIERRE SULTANA, AUD [address] [facility],[place] [address], [place], [address] , [facility] - [facility] 4 10:41:59 Sensorine ural hearing loss of bilateral ears 814130943 Active 2023 PIERRE SULTANA, AUD [address] [facility],[place] [address], [place], [address] , [place] - [facility] 4 15:45:59 Problem Notes None recorded. Procedures Surgical History Date Name Laterality Status Provider Name and Address Organization Details Recorded Time 07/02/2024 Comp Audio with Tymps (52806 & 18711) completed PIERRE SULTANA, [facility] [address] [facility],[place] [address], [place], [address], [place] - [facility] 07/02/2024 10:41:12 Imaging Results None recorded. Procedure Notes None recorded. Medical Equipment None Reported. Allergies No known drug allergies Medications Name Sig Start Date Stop Date Status Note LastModified by Organization Details LastModified Time cyclobenza vidya 10 mg tablet 2021 active Medicatio n ID: [id number] Br and Name: cyclobenz aprine Se nd Method: E-Prescri bed Subs Allowed: subs OK Medica tionGener icName: cyclobenz aprine Not Available Not Available Not Available amoxicilli n 500 mg capsule TAKE 2 CAPSULES (1,000 MG TOTAL) BY MOUTH EVERY 8 HOURS FOR 7 DAYS active Not Available Not Available No t Available prednisone 10 mg tablet 2021 active Medicatio n ID: [id number] Br and Name: prednison e Send Method: E-Prescri bed Subs Allowed: subs OK Medica tionGener icName: prednison e Not Available Not Available Not Available atorvastat in 10 mg tablet TAKE 1 TABLET DAILY active Not Available Not Available No t Available azithromyc in 250 mg tablet TAKE 2 TABLETS BY MOUTH TODAY, THEN TAKE 1 TABLET DAILY FOR 4 DAYS DIRECTED active Not Available Not Available No t Available benzonatat e 200 mg capsule TAKE 1 CAPSULE BY MOUTH THREE TIMES A DAY NEEDED FOR COUGH active Not Available Not Available No t Available propranolo l ER 60 mg capsule,24 hr,extende d release TAKE 1 CAPSULE BY MOUTH AT 8 AM active Not Available Not Available No t Available fluoxetine 10 mg tablet TAKE 1 TABLET BY MOUTH EVERY DAY AT 8AM active Not Available Not Available No t Available sumatripta n 50 mg tablet 2021 active Medicatio n ID: [id number] Br and Name: sumatript an succinate Send Method: E-Prescri bed Subs Allowed: subs OK Medica tionGener icName: sumatript an succinate Not Available Not Available Not Available oxycodone- acetaminop hen 5 mg-325 mg tablet TAKE 1 TABLET BY MOUTH EVERY 6 HOURS NEEDED active Not Available Not Available No t Available benzonatat e 100 mg capsule TAKE 1 CAPSULE BY MOUTH THREE TIMES A DAY NEEDED FOR COUGH active Not Available Not Available No t Available hydrocodon e-homatrop ine 5 mg-1.5 mg/5 mL oral syrup TAKE 5 ML BY MOUTH 4 TIMES A DAY NEEDED *E* active Not Available Not Available No t Available omeprazole 20 mg capsule,de layed release Take 1 capsule by mouth every morning one hour before meals 2021 active Medicatio n ID: [id number] Du ration Value: 30 Prescrib ed By Name: Jerome white MD Brand Name: omeprazol e Send Method: E-Prescri bed Subs Allowed: subs OK Medica tionGener icName: omeprazol e Not Available Not Available Not Available levofloxac in 750 mg tablet TAKE 1 TABLET BY MOUTH EVERY DAY FOR 5 DAYS active Not Available Not Available No t Available albuterol sulfate HFA 90 mcg/actuat ion aerosol inhaler 2021 active Medicatio n ID: [id number] Br and Name: albuterol sulfate S end Method: E-Prescri bed Subs Allowed: subs OK Medica tionGener icName: albuterol sulfate Not Available Not Available Not Available ketoconazo le 2 % topical cream 2021 active Medicatio n ID: [id number] Br and Name: ketoconaz ole Send Method: E-Prescri bed Subs Allowed: subs OK Medica tionGener icName: ketoconaz ole Not Available Not Available Not Available methylphen idate ER 36 mg tablet,ext ended release 24 hr 2021 active Medicatio n ID: [id number] Br and Name: methylphe nidate HCl Send Method: E-Prescri bed Subs Allowed: subs OK Medica tionGener icName: methylphe nidate HCl Not Available Not Available Not Available amoxicilli n 875 mg-potassi um clavulanat e 125 mg tablet TAKE 1 TABLET BY MOUTH TWICE A DAY FOR 7 DAYS active Not Available Not Available No t Available divalproex ER 250 mg tablet,ext ended release 24 hr TAKE 1 TABLET IN AM AND 2 TABS IN PM active Not Available Not Available No t Available cyclobenza vidya 5 mg tablet TAKE 1 TABLET BY MOUTH THREE TIMES A DAY NEEDED active Not Available Not Available No t Available zolmitript an 5 mg nasal spray active Not Available Not Available Not Available escitalopr am 5 mg tablet TAKE 1 TABLET BY MOUTH AT BEDTIME active Not Available Not Available No t Available tadalafil 2.5 mg tablet TAKE 1 TABLET BY MOUTH EVERY DAY active Not Available Not Available No t Available quetiapine ER 50 mg tablet,ext ended release 24 hr TAKE 2 TABLETS ONCE DAILY AT BEDTIME active Not Available Not Available No t Available Botox 200 unit injection active Not Available Not Available No t Available Zembrace Symtouch 3 mg/0.5 mL subcutaneo us pen injector PLEASE SEE ATTACHED FOR DETAILED DIRECTION S active Not Available Not Available No t Available Onzetra Xsail 11 mg powder for nasal inhalation 11 MG INTRANASA LLY ONCE FOR 30 DAYS active Not Available Not Available No t Available Ubrelvy 100 mg tablet TAKE 1/2 TO 1 TABLET AT ONSET OF MIGRAINE, MAY REPEAT IN 2 HOURS (MAXIMUM OF 200MG A DAY) NEEDED FOR MIGRAINE active Not Available Not Available No t Available Ajovy 225 mg/1.5 mL subcutaneo us auto-injec tor INJECT 1.5 ML SUBCUTANE OUSLY ONCE FOR 90 DAYS ADMINISTE R 675 MG SUBCUTANE OUSLY EVERY 3 MONTHS active Not Available Not Available No t Available Trudhesa 0.725 mg/pump act. (4 mg/mL) nasal spray active Not Available Not Available Not Available Lagevrio 200 mg capsule (EUA) TAKE 4 CAPSULES BY MOUTH EVERY 12 WITH OR WITHOUT FOOD FOR 5 DAYS active Not Available Not Available No t Available Nerivio Digital Gomez (migraine) USE ONE 45 MINUTE TREATMENT EVERY OTHER DAY FOR PREVENTIO N OR AT ONSET OF MIGRAINE active Not Available Not Available No t Available Vitals None Recorded Social History None recorded. Functional Status None recorded. Mental Status None recorded. Family History Nothing Reported. Medical History No medical history recorded. Past Encounters Encounter ID Performer Location Encounter Start Date Encounter Closed Date Diagnosis/Indication Diagnosis SNOMED-CT Code Diagnosis ICD10 Code Diagnosis Note [id number] KATHRYN RIDDLE PA-C [facility] beds at the [facility] on [address] [place] [address] 07/02/2024 10:14:07 07/02/2024 11:28:18 Mixed conductive and sensorineural hearing loss of left ear [id number] 9107 H90.A32 Audiologic al evaluation results: 07/02/2024 Right ear: {{Normal N ormal through 2 kHz Mild* Moderate M oderately- severe Sev ere Profou nd}} {{hearing sloping to a mild slopi ng to a moderate s loping to moderately severe slo ping to severe slo ping to profound f lat high frequency low frequency mid frequency cookie bite yeung curve ring to normal sloping to mild to moderate#} } {{with sen sorineural hearing loss with* cond uctive hearing loss with mixed hearing loss with}} {{excellen t* good fa ir poor no measurable }} word recognitio n. Left ear: {{Normal N ormal through 2 kHz Mild* Moderate M oderately- severe Sev ere Profou nd}} {{hearing sloping to a mild slopi ng to a moderate* sloping to moderately severe slo ping to severe slo ping to profound f lat high frequency low frequency mid frequency cookie bite yeung curve}} {{with sen sorineural hearing loss with condu ctive hearing loss with mixed hearing loss with*}} {{excellen t good jose r* poor no measurable }} word recognitio n. Tympanomet ry: Right Ear:{{Type A* Type As Type Ad Type C Type C, shallow & rounded Ty pe B Type B with large volume Cou ld not maintain a hermetic seal}} Left Ear:{{Type A* Type As Type Ad Type C Type C, shallow & rounded Ty pe B Type B with large volume Cou ld not maintain a hermetic seal}} Sensorineu ral hearing loss 41990871 H90.A21 [id number] EMMIE JENSEN [facility] - [place] [address] [facility],[address] [place] [address] 08/07/2024 10:00:31 08/07/2024 16:38:23 Mixed conductive and sensorineural hearing loss of left ear [id number] 9107 H90.A32 [id number] EMMIE JENSEN RAMÍREZ - [place] [address] [facility],[address] [place] [address] 09/11/2024 14:57:21 09/15/2024 13:27:05 Sensorineural hearing loss of bilateral ears 030435345 H90.3 [id number] EMMIE JENSEN RAMÍREZ - [place] [address] [place] [address] 10/15/2024 09:26:29 10/16/2024 07:54:44 Sensorineural hearing loss of bilateral ears 491161993 H90.3 [id number] EMMIE JENSEN RAMÍREZ - [place] [address] [place] [address] 09/22/2024 14:47:03 09/22/2024 15:51:06 Sensorineural hearing loss of bilateral ears 801681634 H90.3 [id number] EMMIE JENSEN RAMÍREZ - [place] [address] [facility] [address] [place] [address] 10/23/2024 12:55:38 10/27/2024 08:26:02 Sensorineural hearing loss of bilateral ears 333748066 H90.3 Health Concerns Section Related Observation LastModified by Organization Detai ls LastModified Time None Recorded Concern Status LastModified by Organization Details LastModified Time None Recorded Advance Directives Directive None Recorded Payers Encounter Date Sequence Insurance Name Policy Number Policy Martin Covered Member ID Martin Member ID Guarantor Name 08/07/2024 1 [facility] Gutierrez Borrero [id number] Gutierrez Borrero 09/11/2024 1 [facility] Gutierrez Borrero [id number] Gutierrez Borrero 09/22/2024 1 [facility] Gutierrez Borrero [id number] Gutierrez Borrero 10/15/2024 1 [facility] Gutierrez Borrero [id number] Gutierrez Borrero 10/23/2024 1 [facility] Gutierrez Gissell [id number] Gutierrez Borrero Notes Date Note Type Note Provider Name and Address Organization Details Recorded Time 08/07/2024 text/html Patient has a known bilateral hearing loss >AD. He lives in [place] and prefers [facility] office but will travel for sooner appt. Patient has [facility] 1700/ear benefit. EMMIE JENSEN [address] [facility],[address], [address], [facility] [place] 08/28/2024 12:00:59 09/11/2024 text/html Patient has a known bilateral hearing loss >AD. He lives in [place] and prefers [facility] office but will travel for sooner appt. Patient has [facility] 1700/ear benefit. Discussed various types, models and levels of technology. patient is interested in best technology in rechargeable option. Dispensed Widex Moment 440 Smart ADALGISA R hearing aids 09/11/2024 PIERRE SULTANA, AUD [address] [facility], [address], [facility] - [facility] [place] 09/11/2024 15:52:16 09/22/2024 text/html Patient has a known bilateral hearing loss >AD. He lives in [place] and prefers [facility] office but will travel for sooner appt. Patient has [employer] 1700/ear benefit. Discussed various types, models and levels of technology. patient is interested in best technology in rechargeable option. Dispensed Widex Moment 440 Smart ADALGISA R hearing aids 09/11/2024 PIERRE SULTANA, AUD [address] [facility],[address], [address], [facility] - [facility] 09/22/2024 15:08:05 10/15/2024 text/html Patient has a known bilateral hearing loss >AD. He lives in [place] and prefers [facility] office but will travel for sooner appt. Patient has [employer] [facility] 1700/ear benefit. Discussed various types, models and levels of technology. patient is interested in best technology in rechargeable option. Dispensed Widex Moment 440 Smart ADALGISA R hearing aids 09/11/2024. Excellent fit to real ear. PIERRE SULTANA, AUD [address] [facility] [place],[address], [address], [facility] - [facility] 10/15/2024 09:58:08 10/23/2024 text/html Patient has a known bilateral hearing loss >AD. He lives in [place] and prefers [facility] office but will travel for sooner appt. Patient has [employer] [facility] 1700/ear benefit. Discussed various types, models and levels of technology. patient is interested in best technology in rechargeable option. Dispensed [employer] Moment 440 Smart ADALGISA R hearing aids 09/11/2024. Excellent fit to real ear. PIERRE SULTANA, [address],[place] [address], [place], [address], [facility] - [facility] 10/23/2024 14:35:21
--- OUTSIDE RECORDS SUMMARY | 2024-10-29 11:29 | XMS_ITS | Continuity of Care Document ---
Author Organization 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 Did rapid repair/replace ment. Transferred settings and relinked aids to Verid . f/u 2 weeks [email or web address] Not available 10/23/2024 13:35:54 Plan of Treatment Reminders Order Date Submit Date Provider Last Modified By Organization Details Last Modified Time Details Appointments RAMÍREZ Initial Fitting 2024 09:00A EMMIE HERNÁNDEZ Not available Not available Not available RAMÍREZ Fitting Follow Up (60) 2024 02:00P EMMIE HERNÁNDEZ Not available Not available Not available Lab [...] and Address Organization Details Recorded Time Dyspnea 069444346 Active 2021 Other forms of dyspnea; Note: Date Diagnose d: 2 10:22 AM (R06.09) Not Available [facility] 4 03:28:10 Gastroeso phageal reflux disease without esophagit is 014076900 Active 2021 Gastro-e sophagea l reflux disease without esophagi tis; Note: Date Diagnose d: 2 10:22 AM (K21.9) Not Available [employer] 4 03:28:10 Sensorine ural hearing loss 88393004 Active [address], [facility] [address] [facility] [place] [address], [place], [address] , [facility] - [facility] [place] 4 10:41:54 Mixed conductiv e and sensorine ural hearing loss of left ear [id number] [address], [facility] [address] [facility] [place] [address], [place], [address] , [facility] - [facility] [place] 4 10:41:59 Sensorine ural hearing loss of bilateral ears 675414371 Active [address], [address] [facility] [place] [address], [place], [address] , [facility] 4 15:45:59 Problem Notes None recorded. Procedures Surgical History Date Name Laterality Status Provider Name and Address Organization Details Recorded Time 07/02/2024 Comp Audio with Tymps (03739 & 34621) completed [address], [facility] 100 [facility],[place] [address], [place], [address], [facility] 07/02/2024 10:41:12 Imaging Results None recorded. Procedure Notes None recorded. Medical Equipment None Reported. Allergies No known drug allergies Medications Name Sig Start Date Stop Date Status Note LastModified by Organization Details LastModified Time cyclobenza vidya 10 mg tablet 2021 active Medicatio n ID: [id number] Br and Name: cyclobenz aprine Se nd Method: E-Prescri bed Subs Allowed: subs OK Medica tionGener icName: cyclobenz aprine Not Available Not Available Not Available amoxicilli n 500 mg capsule TAKE 2 CAPSULES (1,000 MG TOTAL) BY MOUTH EVERY 8 HOURS FOR 7 DAYS active Not Available Not Available No t Available prednisone 10 mg tablet 2021 active Medicatio n ID: [id number] Br and Name: prednison e Send Method: [...] mg tablet 2021 active Medicatio n ID: [id number] Br and Name: sumatript an succinate Send [...] before meals 2021 active Medicatio n ID: [id number] Du ration Value: 30 Prescrib ed By [...] aerosol inhaler 2021 active Medicatio n ID: [id number] Br and Name: albuterol sulfate S end Method: E-Prescri bed Subs Allowed: subs OK Medica tionGener icName: albuterol sulfate Not Available Not Available Not Available ketoconazo le 2 % topical cream 2021 active Medicatio n ID: [id number] Br and Name: ketoconaz ole Send Method: E-Prescri bed Subs Allowed: subs OK Medica tionGener icName: ketoconaz ole Not Available Not Available Not Available methylphen idate ER 36 mg tablet,ext ended release 24 hr 2021 active Medicatio n ID: [id number] Br and Name: methylphe nidate HCl Send [...] SNOMED-CT Code Diagnosis ICD10 Code Diagnosis Note [id number] EMMIE JENSEN RAMÍREZ - [address] [place] [address] 10/15/2024 09:26:29 10/16/2024 07:54:44 Sensorineural hearing loss of bilateral ears [id number] H90.3 [id number] EMMIE JENSEN RAMÍREZ - [address] [place] [address] 09/22/2024 14:47:03 09/22/2024 15:51:06 Sensorineural hearing loss of bilateral ears 916169606 H90.3 [id number] EMMIE JENSEN RAMÍREZ - [address] [address] 10/23/2024 12:55:38 10/27/2024 08:26:02 Sensorineural hearing loss of bilateral ears 406630148 H90.3 Health Concerns Section Related Observation LastModified by Organization Detai ls LastModified Time None Recorded Concern Status LastModified by Organization Details LastModified Time None Recorded Payers Encounter Date Sequence Insurance Name Policy Number Policy Martin Covered Member ID Martin Member ID Guarantor Name 10/23/2024 1 [facility] Gutierrez Borrero [id number] Gutierrez Borrero Notes Date Note Type Note Provider Name and Address Organization Details Recorded Time 10/23/2024 text/html Patient has a known bilateral hearing loss >AD. He lives in [place] and prefers [facility] office but will travel for sooner appt. Patient has [facility] 1700/ear benefit. Discussed various types, models and levels of technology. patient is interested in best technology in rechargeable option. Dispensed [email or web address] 440 Smart ADALGISA R hearing aids 09/11/2024. Excellent fit to real ear. PIERRE SULTANA, [facility] 100 [facility],[place] [address], [place], [address], [facility] - [facility] 10/23/2024 14:35:21
--- OUTSIDE RECORDS SUMMARY | 2024-10-29 11:30 | XMS_ITS | Continuity of Care Document ---
Author Organization [facility] No Address [address] [place] [address] Care Team Providers Care Government Sales Manager Name Role Phone MEDHAT SANTOS Primary Care Provider [phone] Assessment Encounter Date Assessment Date Assessment LastModified by Organization Details LastModified Time 10/15/2024 10/15/2024 Patient getting excessive battery drain, cutting in/out left aid. Will do repaid repair. Patient fine with going to [facility] for sooner PU. Will transfer settings/reli nk aid upon arrival. [email or web address] Not available 10/15/2024 09:57:00 Plan of Treatment Reminders Order Date Submit [...] and Address Organization Details Recorded Time Dyspnea 668923716 Active 2021 Other forms of dyspnea; Note: Date Diagnose d: 2 10:22 AM (R06.09) Not Available [employer] 4 03:28:10 Gastroeso phageal reflux disease without esophagit is 601636473 Active 2021 Gastro-e sophagea l reflux disease without esophagi tis; Note: Date Diagnose d: 2 10:22 AM (K21.9) Not Available [facility] 4 03:28:10 Sensorine ural hearing loss 67323275 Active 2023 PIER[address] SULTANA, AUD [address],[place] [facility], [place], [address] , [facility] - [facility] 4 10:41:54 Mixed conductiv e and sensorine ural hearing loss of left ear 234970854056 07 Active 2023 PI[address] SULTANA, [address] [facility],[place] [facility], [place], [address] , [facility] [place] 4 10:41:59 Sensorine ural hearing loss of bilateral ears 028382661 Active 2023 PI[address] SULTANA, [address] [facility] [address],[place] [facility], [place], [address] , [facility] 4 15:45:59 Problem Notes None recorded. Procedures Surgical History Date Name Laterality Status Provider Name and Address Organization Details Recorded Time 07/02/2024 Comp Audio with Tymps (09528 & 75431) completed PIERREPAUL SULTANA, A[address] [facility],[place] [address], [place], [address], [facility] 07/02/2024 10:41:12 Imaging Results None recorded. Procedure Notes None recorded. Medical Equipment None Reported. Allergies No known drug allergies Medications Name Sig Start Date Stop Date Status Note LastModified by Organization Details LastModified Time cyclobenza vidya 10 mg tablet 2021 active Medicatio n ID: [id number] Br and Name: cyclobenz aprine Se nd Method: E-Prescri bed Subs Allowed: subs OK Medica tionGener icName: cyclobenz aprine Not Available Not Available Not Available amoxicilli n 500 mg capsule TAKE 2 CAPSULES (1,000 MG TOTAL) BY MOUTH EVERY 8 HOURS FOR 7 DAYS active Not Available Not Available No t Available prednisone 10 mg tablet 2021 active Medicatio n ID: [id number] Br and Name: prednison e Send Method: [...] mg tablet 2021 active Medicatio n ID: [id number] Br and Name: sumatript an succinate Send [...] before meals 2021 active Medicatio n ID: [id number] Du ration Value: 30 Prescrib ed By [...] aerosol inhaler 2021 active Medicatio n ID: [id number] Br and Name: albuterol sulfate S end Method: E-Prescri bed Subs Allowed: subs OK Medica tionGener icName: albuterol sulfate Not Available Not Available Not Available ketoconazo le 2 % topical cream 2021 active Medicatio n ID: [id number] Br and Name: ketoconaz ole Send Method: E-Prescri bed Subs Allowed: subs OK Medica tionGener icName: ketoconaz ole Not Available Not Available Not Available methylphen idate ER 36 mg tablet,ext ended release 24 hr 2021 active Medicatio n ID: [id number] Br and Name: methylphe nidate HCl Send [...] SNOMED-CT Code Diagnosis ICD10 Code Diagnosis Note [id number] EMMIE JENSEN [employer] [address] [place] [address] 10/15/2024 09:26:29 10/16/2024 07:54:44 Sensorineural hearing loss of bilateral ears 474114805 H90.3 [id number] EMMIE JENSEN [employer] [address] [place] [address] 09/22/2024 14:47:03 09/22/2024 15:51:06 Sensorineural hearing loss of bilateral ears 178665967 H90.3 Health Concerns Section Related Observation LastModified by Organization Detai ls LastModified Time None Recorded Concern Status LastModified by Organization Details LastModified Time None Recorded Payers Encounter Date Sequence Insurance Name Policy Number Policy Martin Covered Member ID Martin Member ID Guarantor Name 10/15/2024 1 [facility] Gutierrez Borrero [id number] Gutierrez Borrero Notes Date Note Type Note Provider Name and Address Organization Details Recorded Time 10/15/2024 text/html Patient has a known bilateral hearing loss >AD. He lives in [place] and prefers [facility] office but will travel for sooner appt. Patient has [facility] 1700/ear benefit. Discussed various types, models and levels of technology. patient is interested in best technology in rechargeable option. Dispensed [employer] 440 Smart ADALGISA R hearing aids 09/11/2024. Excellent fit to real ear. PIERRE SULTANA, [address] [facility], [place], [address], [facility] - [facility] 10/15/2024 09:58:08
== END 2024-10-29 10:48 | disposition home or self-care (01) ==
PROVIDERS: PCP Internal Medicine; Visit Provider Psychiatry & Neurology Neurology
DX: G43.E11 Chronic migraine with aura, intractable, with status migrainosus (principal)
CPT/HCPCS: 64615

== ENCOUNTER → 2024-10-29 10:24 | Outpatient (BNVA) | payer OTHER, SELFPAY | PROVIDERS: PCP Internal Medicine; Visit Provider Psychiatry & Neurology Neurology | DX: G43.E19 Chronic migraine with aura, intractable, without status migrainosus (principal) | CPT/HCPCS: 64615; 99211; J0585 ==

== ENCOUNTER 2025-01-27 09:31 | Outpatient (AMB) | payer OTHER, SELFPAY ==
--- NOTE | 2025-01-27 09:33 | MHC.OFFVIS ---
Vital Signs 01/27/25 09:34 Height 5 ft 10 in Weight 201 lb BMI 28.8 Intake Visit Reasons: Botox Intake Note: patient presents for botox injection . pharmacy supplied Allergies No Known Allergies Allergy (Verified 01/27/25 09:34) Medication List - Last Reconciled 01/27/25 by Yvette Smith MD atorvastatin 10 mg PO DAILY diclofenac sodium 75 mg PO BID dihydroergotamine (Trudhesa) 1 actuation in each nostril x1, may repeat dose x1 after 1h intranasally once; (Max: 4 actuations/day, 6 actuations/wk). Do NOT take w/in 24 hrs of a TRIPTAN. 28 days divalproex ER 250mg in the am, 500 mg orally at night; escitalopram oxalate 5 mg PO DAILY fremanezumab-vfrm (Ajovy) 225 mg (1.5 mL) subcut ONCE 90 days onabotulinumtoxinA (Botox) 200 units IM ONCE 12 weeks propranolol ER 60 mg PO DAILY quetiapine 100 mg PO DAILY sumatriptan succinate 0 mg PO sumatriptan succinate 11 mg intranasal ONCE 30 days sumatriptan succinate (Zembrace Symtouch) 3 mg (0.5 mL) subcut Q1H PRN 30 days tadalafil 5 mg PO DAILY ubrogepant 1/2 - 1 tab at onset of migraine, may repeat in 2 hours (max 200mg/day) orally ; PRN; 90 days zolmitriptan (Zomig) 1 spray intranasal Q2H PRN 30 days HPI Comments Details: ? 64y/o male comes for treatment of migraines with botox. How many migraine days prior to botox 25/month How long do the migraines last 2-3 days Intensity of migraine9/10 ER visits related to migraine 2 Effectiveness of botox from last two treatment(s) How many migraine days since receiving treatment: 1-2/month Change? in intensity of migraine?decreased Change in frequency of migraine?decreased Change in use of acute medication for migraine?decreased Change in quality of life?good ER visits related to migraine? none Have at least three months elapsed since last treatment (Last botox date - frequency of injections)- yes He is on Zomig 5mg nasal spray- 1 spray into 1 nostril, may repeat in 2 hours (max 2 sprays per day). May adjunct w/ Naproxen. Ubrelvy 50-100mg at onset of migraine, may repeat in 2 hrs (max 200mg/day). May adjunct w/ Naproxen. Previous acute migraine trials:?imitrex, relpax, maxalt, amerge , midrin, zomig tablet- not fully effective His headache days have decreased to 1-2/month with the above regimen. Most frequent reported adverse reactions following injection of botox for chronic migraine include neck pain (9%), headache(5%), eyelid ptosis(4%), migraine(4%), muscular weakness(4%), musculuskeletal stiffness(4%), bronchitis(3%), injection site pain (3%), musculoskeletal pain(3%), myalgia(3%), facial paresis(2%), HTN(2%) and muscle spasms(2%) were discussed in detail. ??? Botulinum toxin typeA 200units Lot no [id number] expiration 01/2027 was diluted with 4 cc of normal saline . ??? Muscles injected- ??? Frontalis 4 sites ??? Procerus 1 site ??? Blower Feeder Dyed Raw Stock- 2 sites ??? Temporalis- 8 sites ??? Occipitalis- 6 sites ??? Cervical paraspinals- 4 sites ??? Trapezius- 6 sites- 10 units each ??? 5 units each in 31 site ??? Total use- 185units ??? 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 [employer] Physical Exam Vital Signs: BMI result Body Mass Index 28.8 Const General: cooperative and no acute distress Orientation/consciousness: patient oriented x3 HEENT Head: Yes normocephalic Resp Effort & Inspection: normal respiratory effort and able to speak in complete sentences Neuro General: patient oriented x3, gait normal and CN's II-XI intact bilaterally Cognition (Neuro): normal cognition Motor exam (neuro): 5/5 motor strength present throughout Office Procedures Botulinum toxin Injection 48551 - Migraine Procedure code (CPT) selection complete Office Meds onabotulinumtoxinA 200 unit solution for injection Performing Provider: Yvette Smith MD Performing Location: [facility] Administered by: Yvette Smith MD on 01/27/25 13:31 Dose Route Admin Location Dispensed Lot Number Expiration Date [facility] Bulk Receiver 200 unit IM 200 units [id number] [employer]ERGAN/BOTOX Comments: see hpi Assessment & Plan Assessment & Plan (1) Chronic migraine without aura, intractable, with status migrainosus: Code(s): G43.711 - Chronic migraine without aura, intractable, with status migrainosus Category: Medical (2) Migraine with aura, intractable, without status migrainosus: Code(s): G43.119 - Migraine with aura, intractable, without status migrainosus Category: Medical Plan Patient tolerated the procedure well He will call with any side effects The tremors are likely exaggerated physiological tremors - will follow up clinically Orders: Orders AMB Botulinum toxin Injection - Patient Supplied N/C Today G43.119 - Migraine with aura, intractable, without status migrainosus Medications: New onabotulinumtoxinA 200 units IM ONCE 1 ea 0RF migraine G43.119 - Migraine with aura, intractable, without status migrainosus Coding Level of Care Code Est Pt Level 1 (39164) Diagnoses Chronic migraine without aura, intractable, with status migrainosus G43.711 Migraine with aura, intractable, without status migrainosus G43.119 CPT Codes Botox Injection - Botox 3: 67333 - Migraine ([id number])
[2025-01-27 09:34] VITALS: BMI 28.8
--- OUTSIDE RECORDS SUMMARY | 2025-01-27 10:29 | XMS_ITS | Data Portability ---
Author Organization [place] - [facility] Address [address] [place] [id number] Care Team Providers Care General Operator Name Role Phone MEDHAT SANTOS Primary Care Provider Assessment Encounter Date Assessment Date Assessment LastModified by Organization Details LastModified Time 09/11/2024 09/11/2024 Excellent fit to real ear. Reviewed daily care and maintenance. Downloaded and reviewed gomez. Reset to #2 adaptation for comfort / f/u 2 weels [email or web address] Not available 09/11/2024 15:51:10 09/22/2024 09/22/2024 increased to #4 adaptation for better clarity. Hearing so much better, is really pleased with new aids. Reviewed use of gomez. F/u 2 weeks. [email or web address] Not available 09/22/2024 15:06:17 10/15/2024 10/15/2024 Patient getting excessive battery drain, cutting in/out left aid. Will do repaid repair. Patient fine with going to [facility] for sooner PU. Will transfer settings/relin k aid upon arrival. [email or web address] Not available 10/15/2024 09:57:00 10/23/2024 10/23/2024 Was getting excessive battery drain on left aid. Did rapid repair/replace ment. Transferred settings and relinked aids to [employer] . f/u 2 weeks [email or web address] Not available 10/23/2024 13:35:54 11/05/2024 11/05/2024 Wants to keep programming at #4 adaptation for clarity. Finds he sometimes feels some sounds too loud. Discussed setting up comfort program on gomez, wants to think about. Everything fine for now. 6 mo appt already made. [email or web address] Not available 11/05/2024 09:16:01 Plan of Treatment Reminders Order Date Submit Date Provider Last Modified By Organization Details Last Modified Time Details Appointments RAMÍREZ Fitting Follow Up (60) 2024 02:00P M PIERRE SULTANA, EMMIE Not available Not available Not available Lab [...] and Address Organization Details Recorded Time Dyspnea 919985946 Active 2021 Other forms of dyspnea; Note: Date Diagnose d: 2 10:22 AM (R06.09) Not Available [facility] 4 03:28:10 Gastroeso phageal reflux disease without esophagit is 416599832 Active 2021 Gastro-e sophagea l reflux disease without esophagi tis; Note: Date Diagnose d: 2 10:22 AM (K21.9) Not Available [facility] 4 03:28:10 Sensorine ural hearing loss 17462683 Active 2023 PIERRE SULTANA, EMMIE [address] [place], [address] , [facility] 4 10:41:54 Mixed conductiv e and sensorine ural hearing loss of left ear [id number] 07 Active 2023 EMMIE JENSEN [address] [address], [facility] [place], [address] , [facility] 4 10:41:59 Sensorine ural hearing loss of bilateral ears 474761548 Active 2023 EMMIE JENSEN [address] [place], [address] , [facility] - [facility] 4 15:45:59 Problem Notes None recorded. Procedures Surgical History Date Name Laterality Status Provider Name and Address Organization Details Recorded Time 07/02/2024 Comp Audio with Tymps (29056 & 55096) completed PIERRE SULTANA, AUD 100 [facility] [address], [place], [address], [place] - [facility] 07/02/2024 10:41:12 Imaging Results None recorded. Procedure Notes None recorded. Medical Equipment None Reported. Allergies No known drug allergies Medications Name Sig Start Date Stop Date Status Note LastModified by Organization Details LastModified Time cyclobenza vidya 10 mg tablet 2021 active Medicatio n ID: [id number] Br and Name: cyclobenz aprine Se nd Method: E-Prescri bed Subs Allowed: subs [place] Medica tionGener icName: cyclobenz aprine Not Available Not Available Not Available amoxicilli n 500 mg capsule TAKE 2 CAPSULES (1,000 MG TOTAL) BY MOUTH EVERY 8 HOURS FOR 7 DAYS active Not Available Not Available No t Available prednisone 10 mg tablet 2021 active Medicatio n ID: [id number] Br and Name: prednison e Send Method: [...] mg tablet 2021 active Medicatio n ID: [id number] Br and Name: sumatript an succinate Send [...] e-homatrop ine 5 mg-1.5 mg/5 mL oral solution TAKE 5 ML BY MOUTH 4 TIMES A DAY NEEDED *E* active Not Available Not Available No t Available omeprazole 20 mg capsule,de layed release Take 1 capsule by mouth every morning one hour before meals 2021 active Medicatio n ID: [id number] Du ration Value: 30 Prescrib ed By [...] aerosol inhaler 2021 active Medicatio n ID: [id number] Br and Name: albuterol sulfate S end Method: E-Prescri bed Subs Allowed: subs [place] Medica tionGener icName: albuterol sulfate Not Available Not Available Not Available ketoconazo le 2 % topical cream 2021 active Medicatio n ID: [id number] Br and Name: ketoconaz ole Send Method: E-Prescri bed Subs Allowed: subs [place] Medica tionGener icName: ketoconaz ole Not Available Not Available Not Available methylphen idate ER 36 mg tablet,ext ended release 24 hr 2021 active Medicatio n ID: [id number] Br and Name: methylphe nidate HCl Send [...] SNOMED-CT Code Diagnosis ICD10 Code Diagnosis Note [id number] Raegan Hayes [facility] on [address] [place] [address] 07/02/2024 10:14:07 07/02/2024 11:28:18 Mixed conductive and sensorineural hearing loss of left ear [id number] 9107 H90.A32 Audiologic al evaluation results: 07/02/2024 [...] a hermetic seal}} Sensorineu ral hearing loss 15104446 H90.A21 [id number] EMMIE JENSEN RAMÍREZ - [place] 100 [facility] 100 [place] [address] 08/07/2024 10:00:31 08/07/2024 16:38:23 Mixed conductive and sensorineural hearing loss of left ear [id number] 9107 H90.A32 [id number] EMMIE JENSEN RAMÍREZ - [place] 100 [facility], it 100 [place] [address] 09/11/2024 14:57:21 09/15/2024 13:27:05 Sensorineural hearing loss of bilateral ears 179406025 H90.3 [id number] EMMIE JENSEN RAMÍREZ - [place] [address] [place] [address] 10/15/2024 09:26:29 10/16/2024 07:54:44 Sensorineural hearing loss of bilateral ears 435148522 H90.3 [id number] PIERRE SULTANA, AUD RAMÍREZ - [place] [address] [place] [address] 09/22/2024 14:47:03 09/22/2024 15:51:06 Sensorineural hearing loss of bilateral ears 893275657 H90.3 [id number] PIERRE SULTANA, AUD RAMÍREZ - [place] 100 [facility] 100 [place] [address] 10/23/2024 12:55:38 10/27/2024 08:26:02 Sensorineural hearing loss of bilateral ears 662663886 H90.3 [id number] PIERRE SULTANA, AUD RAMÍREZ - [place] [address] [place] [address] 11/05/2024 08:50:31 11/05/2024 09:28:46 Sensorineural hearing loss of bilateral ears 805567875 H90.3 Health Concerns Section Related Observation LastModified by Organization Detai ls LastModified Time None Recorded Concern Status LastModified by Organization Details LastModified Time None Recorded Advance Directives Directive None Recorded Payers Encounter Date Sequence Insurance Name Policy Number Policy Martin Covered Member ID Martin Member ID Guarantor Name 09/11/2024 1 [facility] Gutierrez Borrero [id number] Gutierrez Borrero 09/22/2024 1 [facility] Gutierrez Borrero [id number] Gutierrez Borrero 10/15/2024 1 [facility] Gutierrez Borrero [id number] Gutierrez Borrero 10/23/2024 1 [facility] Gutierrez Borrero [id number] Gutierrez Borrero 11/05/2024 1 [facility] Gutierrez Borrero [id number] Gutierrez Borrero Notes Date Note Type Note Provider Name and Address Organization Details Recorded Time 09/11/2024 text/html Patient has a known bilateral hearing loss >AD. He lives in [place] and prefers [facility] office but will travel for sooner appt. Patient has [place] [facility] 1700/ear benefit. Discussed various types, models and levels of technology. patient is interested in best technology in rechargeable option. Dispensed Widex Moment 440 Smart ADALGISA R hearing aids 09/11/2024 EMMIE JENSEN 100 [facility],[address], [address], [facility] 09/11/2024 15:52:16 09/22/2024 text/html Patient has a known bilateral hearing loss >AD. He lives in [place] and prefers [facility] office but will travel for sooner appt. Patient has [place] [facility] 1700/ear benefit. Discussed various types, models and levels of technology. patient is interested in best technology in rechargeable option. Dispensed Widex Moment 440 Smart ADALGISA R hearing aids 09/11/2024 PIERRE SULTANA, AUD 100 [facility],[address], [address], [facility] 09/22/2024 15:08:05 10/15/2024 text/html Patient has a known bilateral hearing loss >AD. He lives in [place] and prefers [facility] office but will travel for sooner appt. Patient has [place] [facility] 1700/ear benefit. Discussed various types, models and levels of technology. patient is interested in best technology in rechargeable option. Dispensed Widex Moment 440 Smart ADALGISA R hearing aids 09/11/2024. Excellent fit to real ear. PIERRE SULTANA, AUD 100 [facility],[address], [address], [facility] 10/15/2024 09:58:08 10/23/2024 text/html Patient has a known bilateral hearing loss >AD. He lives in [place] and prefers [facility] office but will travel for sooner appt. Patient has [place] [facility] 1700/ear benefit. Discussed various types, models and levels of technology. patient is interested in best technology in rechargeable option. Dispensed Widex Moment 440 Smart ADALGISA R hearing aids 09/11/2024. Excellent fit to real ear. PIERRE SULTANA, AUD 100 [facility],[address], [address], [facility] - [facility] [place] 10/23/2024 14:35:21 11/05/2024 text/html Patient has a known bilateral hearing loss >AD. He lives in [place] and prefers [facility] office but will travel for sooner appt. Patient has [facility] 1700/ear benefit. Discussed various types, models and levels of technology. patient is interested in best technology in rechargeable option. Dispensed Zeto 440 Smart ADALGISA R hearing aids 09/11/2024. Excellent fit to real ear. Was getting excessive battery drain on left aid. Did rapid repair/replacement . Transferred settings and relinked aids to [employer] . PIERRE SULTANA, AUD 100 [facility],[address] [address], [place], [address], [facility] - [facility] 11/05/2024 09:16:34
== END 2025-01-27 10:06 | disposition home or self-care (01) ==
LOC: HO.HSMS 09:31
PROVIDERS: PCP Internal Medicine; Visit Provider Psychiatry & Neurology Neurology
DX: G43.711 Chronic migraine without aura, intractable, with status migrainosus (principal)
CPT/HCPCS: 64615

== ENCOUNTER → 2025-01-27 09:31 | Outpatient (BNVA) | payer OTHER, SELFPAY | PROVIDERS: PCP Internal Medicine; Visit Provider Psychiatry & Neurology Neurology | DX: G43.E11 Chronic migraine with aura, intractable, with status migrainosus (principal) | CPT/HCPCS: 64615; 99211; J0585 ==

== ENCOUNTER 2025-03-20 13:53 | Outpatient (AMB) | payer OTHER, SELFPAY ==
--- OUTSIDE RECORDS SUMMARY | 2025-03-20 13:57 | XMS_ITS | Data Portability ---
Author Organization [place] - [facility], Allergy Address [address] [place] [address] Care Team Providers Care Credit Historian Name Role Phone MEDHAT SANTOS Primary Care Provider Assessment Encounter Date Assessment Date Assessment LastModified by Organization Details LastModified Time 10/15/2024 10/15/2024 Patient getting excessive battery drain, cutting in/out left aid. Will do repaid repair. Patient fine with going to [facility] for sooner PU. Will transfer settings/relin k aid upon arrival. [email or web address] Not available 10/15/2024 09:57:00 10/23/2024 10/23/2024 Was getting excessive battery drain on left aid. Did rapid repair/replace ment. Transferred settings and relinked aids to [employer] . f/u 2 weeks [email or web address] Not available 10/23/2024 13:35:54 11/05/2024 11/05/2024 Wants to keep programming at #4 adaptation for clarity. Finds he sometimes feels some sounds too loud. Discussed setting up comfort program on gomez, wants to think about. Everything fine for now. 6 mo appt already made. [email or web address] Not available 11/05/2024 09:16:01 02/10/2025 02/10/2025 Nasal examination today did not identify a prominent bleeding source, crusting, or lesion to better explain their history. Recommend medical management with saline nasal spray 3 times daily, K-Y jelly at night and he may use Ponaris Nasal Emollient 1/2 dropper twice daily as needed with dryness. Left cerumen impaction was debrided using instrument and suction. [email or web address] Not available 02/10/2025 16:28:57 02/25/2025 02/25/2025 CL & CK both aids working fine. Gave extra domes and wax guards. Annuapt made prior to my intermediate. [email or web address] Not available 02/25/2025 14:36:08 Plan of Treatment Reminders Order Date Submit Date Provider Last Modified By Organization Details Last Modified Time Details Appointments RAMÍREZ Fitting Follow Up (30) 2024 03:00P M EMMIE JENSEN Not available Not available [...] and Address Organization Details Recorded Time Dyspnea 135879078 Active 2021 Other forms of dyspnea; Note: Date Diagnose d: 2 10:22 AM (R06.09) Not Available [facility] 4 03:28:10 Gastroeso phageal reflux disease without esophagit is 978967852 Active 2021 Gastro-e sophagea l reflux disease without esophagi tis; Note: Date Diagnose d: 2 10:22 AM (K21.9) Not Available [facility] 4 03:28:10 Sensorine ural hearing loss 64322540 Active 2023 PIERRE SULTANA, AUD [address] [facility],[place] [address], [place], [address] , [facility] - [facility] 4 10:41:54 Mixed conductiv e and sensorine ural hearing loss of left ear 382871286191 07 Active 2023 PIERRE SULTANA, AUD [address] [facility] [address], [place], [address] , [place] - [facility] 4 10:41:59 Sensorine ural hearing loss of bilateral ears 971064744 Active 2023 PIERRE SULTANA, AUD [address] [facility],[place] [address], [place], [address] , [place] - [facility] 4 15:45:59 Nasal mucosa dry 21747483 Active 2024 DESTINEE URIAS PA-C [address],[place] [address], [place], [address] , [facility] 5 16:28:15 Impacted cerumen in left ear 132477777493 9101 Active 2024 DESTINEE URIAS PA-C [address] [facility],[place] [address], [place], [address] , [facility] [place] 5 16:28:23 Sensorine ural hearing loss of bilateral ears 249139851 Active 2024 PIERRE SULTANA, AUD [address] [facility],[place] [address], [place], [address] , [facility] 5 14:16:59 Problem Notes None recorded. Procedures Surgical History Date Name Laterality Status Provider Name and Address Organization Details Recorded Time 5 Cerumen removal without microscope left completed DESTINEE URIAS PA-C [address] [facility],[place] [address], [place], [address], [facility] 02/10/2025 16:23:25 4 Comp Audio with Tymps - 86395 & 86104 completed PIERRE SULTANA, [facility] [address] [facility],[place] [address], [place], [address], [facility] 07/02/2024 10:41:12 Imaging Results None recorded. Procedure Notes None recorded. Medical Equipment None Reported. Allergies No known drug allergies Medications Name Sig Start Date Stop Date Status Note LastModified by Organization Details LastModified Time cyclobenz aprine 10 mg tablet 06/28 completed Medicati on ID: [id number] B rand Name: lisa garner Send Method: E-Prescr ibed Sub s Allowed: subs OK Medic ationGen ericName : cycloben zaprine Not Available Not Available Not Available amoxicill in 500 mg capsule TAKE 1 CAPSULE BY MOUTH THREE TIMES A DAY FOR 10 DAYS active Not Available Not Available No t Available prednison e 10 mg tablet 06/28 completed Medicati on ID: [id number] B rand Name: predniso ne Send Method: E-Prescr ibed Sub s Allowed: subs OK Medic ationGen ericName : predniso ne Not Available Not Available Not Available divalproe x 250 mg tablet,de layed release TAKE 1 TABLET EVERY MORNING; AND TAKE 2 TABLETSA T BEDTIME active Not Available Not Available No t Available atorvasta tin 10 mg tablet TAKE 1 TABLET DAILY active Not Available Not Available No t Available azithromy ramu 250 mg tablet TAKE 2 TABLETS BY MOUTH TODAY, THEN TAKE 1 TABLET DAILY FOR 4 DAYS DIRECTED active Not Available Not Available No t Available benzonata te 200 mg capsule TAKE 1 CAPSULE BY MOUTH THREE TIMES A DAY NEEDED FOR COUGH active Not Available Not Available No t Available propranol ol ER 60 mg capsule,2 4 hr,extend ed release TAKE 1 CAPSULE ONCE DAILY active Not Available Not Available No t Available fluoxetin e 10 mg tablet TAKE 1 TABLET BY MOUTH EVERY DAY AT 8AM active Not Available Not Available No t Available sumatript an 50 mg tablet 2021 active Medicati on ID: [id number] B rand Name: sumatrip coreas succinat e Send Method: E-Prescr ibed Sub s Allowed: subs OK Medic ationGen ericName : sumatrip coreas succinat e Not Available Not Available Not Available oxycodone -acetamin ophen 5 mg-325 mg tablet TAKE 1 TABLET BY MOUTH EVERY 6 HOURS NEEDED active Not Available Not Available No t Available benzonata te 100 mg capsule TAKE 1 CAPSULE BY MOUTH THREE TIMES A DAY NEEDED FOR COUGH active Not Available Not Available No t Available hydrocodo ne-homatr opine 5 mg-1.5 mg/5 mL oral solution TAKE 5 ML BY MOUTH 4 TIMES A DAY NEEDED *E* active Not Available Not Available No t Available gabapenti n 300 mg capsule TAKE 1 CAPSULE BY MOUTH EVERY DAY AT BEDTIME FOR 30 DAYS active Not Available Not Available No t Available omeprazol e 20 mg capsule,d elayed release Take 1 capsule by mouth every morning one hour before meals 06/28 completed Medicati on ID: [id number] D uration Value: 30 Prescri bed By Name: Jerome landeros MD Brand Name: omeprazo le Send Method: E-Prescr ibed Sub s Allowed: subs OK Medic ationGen ericName : omeprazo le Not Available Not Available Not Available diclofena c sodium 75 mg tablet,de layed release TAKE 1 TABLET BY MOUTH TWICE A DAY active Not Available Not Available No t Available levofloxa ramu 750 mg tablet TAKE 1 TABLET BY MOUTH EVERY DAY FOR 5 DAYS active Not Available Not Available No t Available albuterol sulfate HFA 90 mcg/actua tion aerosol inhaler 06/28 completed Medicati on ID: [id number] B rand Name: albutero l sulfate Send Method: E-Prescr ibed Sub s Allowed: subs OK Medic ationGen ericName : albutero l sulfate Not Available Not Available Not Available ketoconaz ole 2 % topical cream 06/28 completed Medicati on ID: [id number] B rand Name: ketocona zole Sen d Method: E-Prescr ibed Sub s Allowed: subs OK Medic ationGen ericName : ketocona zole Not Available Not Available Not Available methylphe nidate ER 36 mg tablet,ex tended release 24 hr 2021 active Medicati on ID: [id number] B rand Name: methylph enidate HCl Send Method: E-Prescr ibed Sub s Allowed: subs OK Medic ationGen ericName : methylph enidate HCl Not Available Not Available Not Available amoxicill in 875 mg-potass ium clavulana te 125 mg tablet TAKE 1 TABLET BY MOUTH TWICE A DAY FOR 7 DAYS active Not Available Not Available No t Available neomycin- polymyxin -hydrocor t 3.5 mg-10,000 unit/mL-1 % ear drops,mike p PLACE 3 DROPS INTO INTO LEFT EAR 4 TIMES A DAY FOR 7 DAYS active Not Available Not Available No t Available divalproe x ER 250 mg tablet,ex tended release 24 hr TAKE 1 TABLET IN AM AND 2 TABS IN PM active Not Available Not Available No t Available cyclobenz aprine 5 mg tablet TAKE 1 TABLET BY MOUTH THREE TIMES A DAY NEEDED active Not Available Not Available No t Available zolmitrip coreas 5 mg nasal spray USE 1 SPRAY INTO ONE NOSTRIL ONLY EVERY 2 HOURS NEEDED FOR HEADACHE ; ALTERNAT E NOSTRILS , DO NOT EXCEED 10MG PER 24 HOURS active Not Available Not Available No t Available escitalop blayne 5 mg tablet TAKE 1 TABLET BY MOUTH EVERYDAY AT BEDTIME active Not Available Not Available No t Available tadalafil 2.5 mg tablet TAKE 1 TABLET BY MOUTH EVERY DAY active Not Available Not Available No t Available quetiapin e ER 50 mg tablet,ex tended release 24 hr TAKE 2 TABLETS EVERY NIGHT AT BEDTIME active Not Available Not Available No t Available Botox 200 unit injection active Not Available Not Available No t Available Zembrace Symtouch 3 mg/0.5 mL subcutane ous pen injector PLEASE SEE ATTACHED FOR DETAILED DIRECTIO NS active Not Available Not Available No t Available Onzetra Xsail 11 mg powder for nasal inhalatio n 11 MG INTRANAS ALLY ONCE FOR 30 DAYS active Not Available Not Available No t Available Ubrelvy 100 mg tablet TAKE 1/2 TO 1 TABLET AT ONSET OF MIGRAINE , MAY REPEAT IN 2 HOURS (MAXIMUM OF 200MG A DAY) NEEDED FOR MIGRAINE active Not Available Not Available No t Available Ajovy 225 mg/1.5 mL subcutane ous auto-inje ctor INJECT 1.5 ML SUBCUTAN EOUSLY ONCE FOR 90 DAYS ADMINIST ER 675 MG SUBCUTAN EOUSLY EVERY 3 MONTHS active Not Available Not Available No t Available Trudhesa 0.725 mg/pump act. (4 mg/mL) nasal spray active Not Available Not Available Not Available Lagevrio 200 mg capsule (EUA) TAKE 4 CAPSULES BY MOUTH EVERY 12 WITH OR WITHOUT FOOD FOR 5 DAYS active Not Available Not Available No t Available NerTextHog Digital Gomez (migraine ) USE ONE 45 MINUTE TREATMEN T EVERY OTHER DAY FOR PREVENTI ON OR AT ONSET OF MIGRAINE active Not Available Not Available No t Available Vitals Date Recorded Body height Body mass index (BMI) Body weight Provider Name and Address Organization Details Last Updated DateTime 02/10/2025 177.8 cm 26.5 kg/m2 04607.59 g Lakshmi Steele [place] - [facility] 02/10/2025 14:54:59 Social History None recorded. Functional Status None recorded. Mental Status None recorded. Family History Nothing Reported. Medical History Condition Response Hearing Loss Y Past Encounters Encounter ID Performer Location Encounter Start Date Encounter Closed Date Diagnosis/Indication Diagnosis SNOMED-CT Code Diagnosis ICD10 Code Diagnosis Note [id number] KATHRYN RIDDLE PA-C [facility] on [address] [place] [address] 07/02/2024 10:14:07 07/02/2024 11:28:18 Mixed conductive and sensorineural hearing loss of left ear 3501815376 9107 H90.A32 Audiologic al evaluation results: 07/02/2024 Right ear: Mild ring to normal sloping to mild to moderate sensorineu ral hearing loss with excellent word recognitio n. Left ear: Mild sloping to a moderate mixed hearing loss with fair word recognitio n. Tympanomet ry: Right Ear:Type A Left Ear:Type A Sensorineu ral hearing loss 83457260 H90.A21 [id number] EMMIE JENSEN [place]ÍREZ - [place] [address] [facility],[address] [place] [address] 08/07/2024 10:00:31 08/07/2024 16:38:23 Mixed conductive and sensorineural hearing loss of left ear 9184194555 9107 H90.A32 [id number] EMMIE JENSEN RAMÍREZ - [place] [address] [place] [address], [address] [place] [address] 09/11/2024 14:57:21 09/15/2024 13:27:05 Sensorineural hearing loss of bilateral ears 207226475 H90.3 [id number] EMMIE JENSEN RAMÍREZ - [place] [address] [place] [address] 10/15/2024 09:26:29 10/16/2024 07:54:44 Sensorineural hearing loss of bilateral ears 145860479 H90.3 [id number] EMMIE JENSEN RAMÍREZ - [place] [address] [place] [address] 09/22/2024 14:47:03 09/22/2024 15:51:06 Sensorineural hearing loss of bilateral ears 122959703 H90.3 [id number] EMMIE JENSEN RAMÍREZ - [place] [address] [facility],[address] [place] [address] 10/23/2024 12:55:38 10/27/2024 08:26:02 Sensorineural hearing loss of bilateral ears 203363458 H90.3 [id number] EMMIE JENSEN RAMÍREZ - [place] [address] [place] [address] 11/05/2024 08:50:31 11/05/2024 09:28:46 Sensorineural hearing loss of bilateral ears 897858032 H90.3 [id number] DESTINEE URIAS PA-C [facility] [place] [address] [place] [address] 02/10/2025 14:50:12 02/10/2025 16:13:23 Nasal mucosa dry 26948184 J34.89 Impacted c erumen in left ear 2631888508 717347 H61.22 [id number] EMMIE JENSEN RAMÍREZ - [place] [address] [place] [address] 02/25/2025 13:57:19 03/06/2025 05:10:26 Sensorineural hearing loss of bilateral ears 766747188 H90.3 Health Concerns Section Related Observation LastModified by Organization Detai ls LastModified Time None Recorded Concern Status LastModified by Organization Details LastModified Time None Recorded Advance Directives Directive None Recorded Payers Insurance Date Sequence Insurance Name Policy Number Policy Martin Covered Member ID Martin Member ID Guarantor Name 02/22/2025 1 [facility] Gutierrez Borrero [id number] Gutierrez Borrero Notes Date Note Type Note Provider Name and Address Organization Details Recorded Time 10/15/2024 text/html Patient has a known bilateral hearing loss >AD. He lives in [place] and prefers [facility] office but will travel for sooner appt. Patient has [facility] 1700/ear benefit. Discussed various types, models and levels of technology. patient is interested in best technology in rechargeable option. Dispensed EnzySurge 440 Smart ADALGISA R hearing aids 09/11/2024. Excellent fit to real ear. PIERRE SULTANA, AUD [address] [facility],[place] [address], [place], [address], [facility] - [facility] 10/15/2024 09:58:08 10/23/2024 text/html Patient has a known bilateral hearing loss >AD. He lives in [place] and prefers [facility] office but will travel for sooner appt. Patient has [facility] 170[employer]/ear benefit. Discussed various types, models and levels of technology. patient is interested in best technology in rechargeable option. Dispensed Widex Moment 440 Smart ADALGISA R hearing aids 09/11/2024. Excellent fit to real ear. PIERRE SULTANA, AUD [address] [facility],[address], [address], [facility] 10/23/2024 14:35:21 11/05/2024 text/html Patient has a known bilateral hearing loss >AD. He lives in [place] and prefers [facility] office but will travel for sooner appt. Patient has [facility] 170[employer]/ear benefit. Discussed various types, models and levels of technology. patient is interested in best technology in rechargeable option. Dispensed Widex Moment 440 Smart ADALGISA R hearing aids 09/11/2024. Excellent fit to real ear. Was getting excessive battery drain on left aid. Did rapid repair/replacement . Transferred settings and relinked aids to [employer]OTORS . PIERRE SULTANA, AUD [address] [facility],[address], [address], [facility] 11/05/2024 09:16:34 02/10/2025 text/html 64 year old male presents for evaluation of the right nostril. He reports that for about six weeks he had bleeding off and on. It was never significant or marko epistaxis. It would bleed a bit on the tissue for a few days then stop. He thought he could feel a sore in the nose. He made this appointment two weeks ago and reports no bleeding in the past week. He used Flonase for many years but stopped three months ago. No history of nosebleeds. He uses Astelin. No nasal saline. ROBYN BRUNER MD [address] [facility],[place] [address], [place], [address], [facility] 02/11/2025 10:03:59 02/25/2025 text/html Patient has a known bilateral hearing loss >AD. He lives in [place] and prefers [facility] office but will travel for sooner appt. Patient has [facility] 1700/ear benefit. Discussed various types, models and levels of technology. patient is interested in best technology in rechargeable option. Dispensed [employer]Grade Moment 440 Smart ADALGISA R hearing aids 09/11/2024. Excellent fit to real ear. Was getting excessive battery drain on left aid. Did rapid repair/replacement . Transferred settings and relinked aids to Iphone .Wants to keep programming at #4 adaptation for clarity. Finds he sometimes feels some sounds too loud. Discussed setting up comfort program on gomez, wants to think about. PIERRE SULTANA, [facility] [address] [facility],[place] [address], [place], [address], [facility] - [facility] 02/25/2025 14:36:25
[2025-03-20 14:05] VITALS: BMI 28.3
--- NOTE | 2025-03-20 14:05 | A.OFFVIS_ITS ---
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
--- NOTE | 2025-03-20 14:38 | MHC.OFFVIS ---
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 Pt denies any significant interval medical changes. Pt reports he continues to do better on routine Botox for chronic migraine treatment. He has not had a severe migraine attack recently. He may have sporadic sppc-sm-[id number] migraine attacks triggered by weather/barometric weather changes and allergy s/s. He is using Ubrogepant and Nerivio at onset of migraine with unusual good effect. Baseline headache characteristics: Unilateral (frontal/temporal) pressure a/w photophobia, phonophobia, nausea. 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 Vital Signs: BMI result Body Mass Index 28.3 Const General: cooperative and no acute distress Orientation/consciousness: patient oriented x3 HEENT Head: Yes normocephalic Resp Effort & Inspection: normal respiratory effort and able to speak in complete sentences Neuro General: patient oriented x3, gait normal and CN's II-XI intact bilaterally Cognition (Neuro): normal cognition Motor exam (neuro): 5/5 motor strength present throughout Assessment & Plan Assessment & Plan (1) Migraine with aura: Code(s): G43.109 - Migraine with aura, not intractable, without status migrainosus Category: Medical Qualifiers: Status migrainosus presence: without status migrainosus Intractability: not intractable Qualified Code(s): G43.109 - Migraine with aura, not intractable, without status migrainosus (2) Chronic migraine without aura: Code(s): G43.709 - Chronic migraine without aura, not intractable, without status migrainosus Category: Medical Qualifiers: Status migrainosus presence: without status migrainosus Intractability: not intractable Qualified Code(s): G43.709 - Chronic migraine without aura, not intractable, without status migrainosus (3) Phonophobia: Code(s): F40.298 - Other specified phobia Category: Medical (4) Tremor: Code(s): R25.1 - Tremor, unspecified Category: Medical Plan For acute migraine tx: Continue using ear plugs during migraine or when in loud environments- such as loop engage. Continue Nerivio- 1 45 minute neurostimulation daily as needed at onset of migraine. Continue Zomig 5mg nasal spray- 1 spray into 1 nostril, may repeat in 2 hours (max 2 sprays per day). May adjunct w/ Naproxen. Continue Ubrelvy 50-100mg at onset of migraine, may repeat in 2 hrs (max 200mg/day). May adjunct w/ Naproxen or Zomig. Trudhesa 0.725mg/spray prn prolonged migraine attack: 1 actuation in each nostril x1, may repeat dose x1 after 1h intranasally once; (Max: 4 actuations/day, 6 actuations/wk). Do NOT take w/in 24 hrs of a TRIPTAN. Previous acute migraine trials:?imitrex, relpax, maxalt, amerge , midrin, zomig tablet- not fully effective ? For migraine prevention: Consider trialing an eTENS neuromodulation device such as Defaly or Uxkw-K-Qxgl- as an adjunct for migraine prevention. Patient will review and let us know. Continue Nerivio- 1 tx qod for prevention- and may use qd prn. Continue Ajovy 225mg sc q month, if tolerated well can switch to 675mg sc q 3 months (mid-botox cycle would likely be most effective). As Botox is helpful, but pt previously had best effect w/ reduced disability and severity of migraine attacks when taking Botox concomitantly w/ a CGRP MaB (previously used Aimovg, however Ajovy is on his current insurance plans formulary). Continue Botox 155 units IM q 3 months. Continue Propranolol ER 60mg qhs- may help tremor as well- would not increase further d/t pt has intermittent SOB and asthma. Continue Depakote 500mg qd- ordered for mood, would not increase further d/t pt has tremor s/s. Previous preventive migraine tx trials: Amitriptyline, topiramate , verapramil, gabapentin- ineffective. atogepant- not tolerated- nausea/GI upset. Nurtec 75mg qod- not fully effective. Aimovig- was helpful, but not as effective as Botox, when he took Aimovig and Botox together had even more benefit than he has now. ? f/u? as scheduled for next Botox tx, and in 6 months w/ ACCOUNTS RECEIVABLE SPECIALIST. Medications: Refilled ubrogepant 1/2 - 1 tab at onset of migraine, may repeat in 2 hours (max 200mg/day) orally ; PRN; 90 days 48 tabs 3RF migraine zolmitriptan (Zomig) administer into one nostril (only); alternate nostrils; do not exceed 10 mg /24 hrs 1 spray intranasal Q2H 30 days PRN 36 ea 1RF headache Discontinued sumatriptan succinate Discontinued Reason: Doctor's Order 11 mg intranasal ONCE 30 days 16 ea 1RF sumatriptan succinate (Zembrace Symtouch) do not exceed 4 doses per 24 hrs Discontinued Reason: Doctor's Order 3 mg (0.5 mL) subcut Q1H 30 days PRN 12 mL 3RF migraine headache Coding Level of Care Code Est Pt Level 4 (21481) Diagnoses Migraine with aura and without status migrainosus, not intractable G43.109 Status migrainosus presence: without status migrainosus Intractability: not intractable Chronic migraine without aura without status migrainosus, not intractable G43.709 Status migrainosus presence: without status migrainosus Intractability: not intractable Phonophobia F40.298 Tremor R25.1
== END 2025-03-20 14:48 | disposition home or self-care (01) ==
LOC: HO.HSMS 13:53
PROVIDERS: PCP Internal Medicine; Visit Provider Nurse Practitioner Family
DX: G43.109 Migraine with aura, not intractable, without status migrainosus (principal); G43.709 Chronic migraine without aura, not intractable, without status migrainosus; F40.298 Other specified phobia; R25.1 Tremor, unspecified
CPT/HCPCS: 99214

== ENCOUNTER → 2025-03-20 13:53 | Outpatient (BNVA) | payer OTHER, SELFPAY | PROVIDERS: PCP Internal Medicine; Visit Provider Nurse Practitioner Family ==

== ENCOUNTER 2025-04-28 10:36 | Outpatient (AMB) | payer OTHER, SELFPAY ==
[2025-04-28 10:47] VITALS: BP 90/60; PULSE 57; O2SAT 97; BMI 27.3
--- NOTE | 2025-04-28 10:47 | A.OFFVIS_ITS ---
Vital Signs 04/28/25 10:47 Height 5 ft 10 in Weight 190 lb BMI 27.3 BP 90/60 Blood Pressure Location Rt brachial Position Sitting Pulse 57 Pulse Source Pulse Oximeter Pulse Oximetry (%) 97 Oxygen Delivery Method Room Air Intake Visit Reasons: Botox Interventional Technologist Required: No Accompanied by: Self / Same As Patient Allergies No Known Allergies Allergy (Verified 04/28/25 10:51) Medication List - Last Reconciled 04/28/25 by Yvette Smith MD atorvastatin 10 mg PO DAILY diclofenac sodium 75 mg PO BID dihydroergotamine (Trudhesa) 1 actuation in each nostril x1, may repeat dose x1 after 1h intranasally once; (Max: 4 actuations/day, 6 actuations/wk). Do NOT take w/in 24 hrs of a TRIPTAN. 28 days escitalopram oxalate 5 mg PO DAILY fremanezumab-vfrm (Ajovy) 675 mg (4.5 mL) subcut ONCE 90 days onabotulinumtoxinA (Botox) 200 units IM ONCE 12 weeks propranolol ER 60 mg PO DAILY quetiapine 100 mg PO DAILY tadalafil 5 mg PO DAILY ubrogepant 1/2 - 1 tab at onset of migraine, may repeat in 2 hours (max 200mg/day) orally ; PRN; 90 days zolmitriptan (Zomig) 1 spray intranasal Q2H PRN 30 days HPI Comments Details: ? 64y/o male comes for treatment of migraines with botox. How many migraine days prior to botox 25/month How long do the migraines last 2-3 days Intensity of migraine9/10 ER visits related to migraine 2 Effectiveness of botox from last two treatment(s) How many migraine days since receiving treatment: 1-2/month Change? in intensity of migraine?decreased Change in frequency of migraine?decreased Change in use of acute medication for migraine?decreased Change in quality of life?good ER visits related to migraine? none Have at least three months elapsed since last treatment (Last botox date - frequency of injections)- yes He is on Zomig 5mg nasal spray- 1 spray into 1 nostril, may repeat in 2 hours (max 2 sprays per day). May adjunct w/ Naproxen. Ubrelvy 50-100mg at onset of migraine, may repeat in 2 hrs (max 200mg/day). May adjunct w/ Naproxen. Previous acute migraine trials:?imitrex, relpax, maxalt, amerge , midrin, zomig tablet- not fully effective His headache days have decreased to 1-2/month with the above regimen. Most frequent reported adverse reactions following injection of botox for chronic migraine include neck pain (9%), headache(5%), eyelid ptosis(4%), migraine(4%), muscular weakness(4%), musculuskeletal stiffness(4%), bronchitis(3%), injection site pain (3%), musculoskeletal pain(3%), myalgia(3%), facial paresis(2%), HTN(2%) and muscle spasms(2%) were discussed in detail. ??? Botulinum toxin typeA 200units Lot no [id number] expiration 07/2027 was diluted with 4 cc of normal saline . ??? Muscles injected- ??? Frontalis 4 sites ??? Procerus 1 site ??? Director Of Purchasing- 2 sites ??? Temporalis- 8 sites ??? Occipitalis- 6 sites ??? Cervical paraspinals- 4 sites ??? Trapezius- 6 sites- 10 units each ??? 5 units each in 31 site ??? Total use- 185units ??? 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 Vital Signs: Last Vital Signs Pulse 57 04/28/25 10:47 BP 90/60 04/28/25 10:47 Pulse Ox 97 04/28/25 10:47 Oxygen Delivery Method Room Air 04/28/25 10:47 BMI result Body Mass Index 27.3 Const General: cooperative and no acute distress Orientation/consciousness: patient oriented x3 HEENT Head: Yes normocephalic Resp Effort & Inspection: normal respiratory effort and able to speak in complete sentences Neuro General: patient oriented x3, gait normal and CN's II-XI intact bilaterally Cognition (Neuro): normal cognition Motor exam (neuro): 5/5 motor strength present throughout Office Procedures Botulinum toxin Injection 01523 - Migraine Procedure code (CPT) selection complete Office Meds onabotulinumtoxinA 200 unit solution for injection Performing Provider: Yvette Smith MD Performing Location: [facility] [place] [facility] Administered by: Yvette Smith MD on 04/28/25 15:27 Dose Route Admin Location Dispensed Lot Number Expiration Date [facility] Production Administrative Assistant 185 unit subcut 200 units [id number] ALLERGAN /BOTOX Total Dispensed Waste 200 units 7.5 % Comments: see HPI Assessment & Plan Assessment & Plan (1) Chronic migraine without aura, intractable, with status migrainosus: Code(s): G43.711 - Chronic migraine without aura, intractable, with status migrainosus Category: Medical (2) Migraine with aura, intractable, without status migrainosus: Code(s): G43.119 - Migraine with aura, intractable, without status migrainosus Category: Medical Plan Patient tolerated the procedure well He will call with any side effects The tremors are likely exaggerated physiological tremors - will follow up clinically Orders: Orders AMB Botulinum toxin Injection - Patient Supplied N/C Today G43.711 - Chronic migraine without aura, intractable, with status migrainosus Coding Level of Care Code Est Pt Level 1 (63617) Diagnoses Chronic migraine without aura, intractable, with status migrainosus G43.711 Migraine with aura, intractable, without status migrainosus G43.119 CPT Codes Botox Injection - Botox 3: 40918 - Migraine ([id number])
--- OUTSIDE RECORDS SUMMARY | 2025-04-28 11:46 | XMS_ITS | Data Portability ---
Author Organization [place] - [facility], Allergy Address [address] [address] Care Team Providers Care Hand Candle Molder Name Role Phone MEDHAT SANTOS Primary Care Provider [phone] Assessment Encounter Date Assessment Date Assessment LastModified by Organization Details LastModified Time 10/15/2024 10/15/2024 Patient getting excessive battery drain, cutting in/out left aid. Will do repaid repair. Patient fine with going to [facility] for sooner PU. Will transfer settings/relin k aid upon arrival. [email or web address] Not available 10/15/2024 09:57:00 10/23/2024 10/23/2024 Was getting excessive battery drain on left aid. Did rapid repair/replace ment. Transferred settings and relinked aids to Iphone . f/u 2 weeks [email or web address] Not available 10/23/2024 13:35:54 11/05/2024 11/05/2024 Wants to keep programming at #4 adaptation for clarity. Finds he sometimes feels some sounds too loud. Discussed setting up comfort program on gomez, wants to think about. Everything fine for now. 6 mo appt already made. [email or web address] Not available 11/05/2024 09:16:01 02/10/2025 02/10/2025 Nasal [...] wax guards. Annuapt made prior to my senior care. [email or web address] Not available 02/25/2025 14:36:08 Plan of Treatment [...] and Address Organization Details Recorded Time Dyspnea 091870972 Active 2021 Other forms of dyspnea; Note: Date Diagnose d: 2 10:22 AM (R06.09) Not Available [facility] 4 03:28:10 Gastroeso phageal reflux disease without esophagit is 959145251 Active 2021 Gastro-e sophagea l reflux disease without esophagi tis; Note: Date Diagnose d: 2 10:22 AM (K21.9) Not Available [facility] 4 03:28:10 Sensorine ural hearing loss 66026882 Active 2023 PIERRE SULTANA, AUD [address] [facility],[place] [address], [place], [address] , [facility] - [facility] 4 10:41:54 Mixed conductiv e and sensorine ural hearing loss of left ear 851489320180 07 Active 2023 PIERRE SULTANA, AUD [address] [facility],[place] [address], [place], [address] , [place] - [facility] 4 10:41:59 Sensorine ural hearing loss of bilateral ears 621377435 Active 2023 PIERRE SULTANA, AUD [address] [facility],[place] [address], [place], [address] , [place] - [facility] 4 15:45:59 Nasal mucosa dry 10002654 Active 2024 DESTINEE URIAS PA-C [address] [facility],[place] [address], [place], [address] , [facility] [place] 5 16:28:15 Impacted cerumen in left ear 065959484182 9101 Active 2024 DESTINEE URIAS PA-C [address] [facility],[place] [address], [place], [address] , [facility] [place] 5 16:28:23 Sensorine ural hearing loss of bilateral ears 121987341 Active 2024 PIERRE SULTANA, [facility] [address] [facility],[place] [address], [place], [address] , [facility] [place] 5 14:16:59 Problem Notes None recorded. Procedures Surgical History Date Name Laterality Status Provider Name and Address Organization Details Recorded Time 5 Cerumen removal without microscope left completed DESTINEE URIAS PA-C [address] [facility],[place] [address], [place], [address], [facility] 02/10/2025 16:23:25 4 Comp Audio with Tymps - 52054 & 50284 completed PIERRE SULTANA, [facility] [address] [facility],[place] [address], [place], [address], [facility] 07/02/2024 10:41:12 Imaging Results None recorded. Procedure Notes None recorded. Medical Equipment None Reported. Allergies No known drug allergies Medications Name Sig Start Date Stop Date Status Note LastModified by Organization Details LastModified Time cyclobenz aprine 10 mg tablet 06/28 completed Medicati on ID: [id number] B rand Name: lisa garner Send Method: E-Prescr ibed Sub s Allowed: subs OK Medic ationGen ericName : cycloben zaprine Not Available Not Available Not Available amoxicill in 500 mg capsule TAKE 1 CAPSULE BY MOUTH THREE TIMES A DAY FOR 10 DAYS active Not Available Not Available No t Available prednison e 10 mg tablet 06/28 completed Medicati on ID: [id number] B rand Name: predniso ne Send Method: [...] mg tablet 2021 active Medicati on ID: [id number] B rand Name: sumatrip coreas succinat e [...] before meals 06/28 completed Medicati on ID: [id number] D uration Value: 30 Prescri bed By [...] aerosol inhaler 06/28 completed Medicati on ID: [id number] B rand Name: albutero l sulfate Send Method: E-Prescr ibed Sub s Allowed: subs OK Medic ationGen ericName : albutero l sulfate Not Available Not Available Not Available ketoconaz ole 2 % topical cream 06/28 completed Medicati on ID: [id number] B rand Name: ketocona zole Sen d Method: E-Prescr ibed Sub s Allowed: subs OK Medic ationGen ericName : ketocona zole Not Available Not Available Not Available methylphe nidate ER 36 mg tablet,ex tended release 24 hr 2021 active Medicati on ID: [id number] B rand Name: methylph enidate HCl Send [...] Not Available Not Available No t Available [employer]er[employer] Gomez (migraine ) USE ONE 45 MINUTE TREATMEN T EVERY OTHER DAY FOR PREVENTI ON OR AT ONSET OF MIGRAINE active Not Available Not Available No t Available Vitals Date Recorded Body height Body mass index (BMI) Body weight Provider Name and Address Organization Details Last Updated DateTime 02/10/2025 177.8 cm 26.5 kg/m2 09153.59 g Lakshmi Steele [place] - [facility] 02/10/2025 14:54:59 Social History None recorded. Functional Status None recorded. Mental Status None recorded. Family History Nothing Reported. Medical History Condition Response Hearing Loss Y Past Encounters Encounter ID Performer Location Encounter Start Date Encounter Closed Date Diagnosis/Indication Diagnosis SNOMED-CT Code Diagnosis ICD10 Code Diagnosis Note [id number] KATHRYN RIDDLE PA-C [facility] on [address] [place] [address] 07/02/2024 10:14:07 07/02/2024 11:28:18 Mixed conductive and sensorineural hearing loss of left ear 1204274018 9107 H90.A32 Audiologic al evaluation results: 07/02/2024 Right ear: Mild ring to normal sloping to mild to moderate sensorineu ral hearing loss with excellent word recognitio n. Left ear: Mild sloping to a moderate mixed hearing loss with fair word recognitio n. Tympanomet ry: Right Ear:Type A Left Ear:Type A Sensorineu ral hearing loss 73187272 H90.A21 [id number] EMMIE JENSEN RAMÍREZ - [place] [address] [facility],[employer] [address] [address] [facility] [place] [address] 08/07/2024 10:00:31 08/07/2024 16:38:23 Mixed conductive and sensorineural hearing loss of left ear 1312678644 9107 H90.A32 [id number] PIERRE SULTANA AUD [facility] [place] [address] [place] [address],[address] [place] [address] 09/11/2024 14:57:21 09/15/2024 13:27:05 Sensorineural hearing loss of bilateral ears 249751047 H90.3 [id number] EMMIE JENSEN RAMÍREZ - [place] [address] [place] [address] 10/15/2024 09:26:29 10/16/2024 07:54:44 Sensorineural hearing loss of bilateral ears 615328658 H90.3 [id number] PIERRE SULTANA AUD [facility] - [place] [address] [place] [address] 09/22/2024 14:47:03 09/22/2024 15:51:06 Sensorineural hearing loss of bilateral ears 982877084 H90.3 [id number] PIERRE SULTANA AUD [facility] - [place] [address] [facility],[address] [place] [address] 10/23/2024 12:55:38 10/27/2024 08:26:02 Sensorineural hearing loss of bilateral ears 576780412 H90.3 [id number] EMMIE JENSEN RAMÍREZ - [place] [address] [place] [address] 11/05/2024 08:50:31 11/05/2024 09:28:46 Sensorineural hearing loss of bilateral ears 912711477 H90.3 [id number] DESTINEE URIAS PA-C [facility] [address] [address] 02/10/2025 14:50:12 02/10/2025 16:13:23 Nasal mucosa dry 02546051 J34.89 Impacted c erumen in left ear 7977360058 723881 H61.22 [id number] EMMIE JENSEN RAM[facility]REZ - [place] [address] [place] [address] 02/25/2025 13:57:19 03/06/2025 05:10:26 Sensorineural hearing loss of bilateral ears 226359106 H90.3 Health Concerns Section Related Observation LastModified by Organization Detai ls LastModified Time None Recorded Concern Status LastModified by Organization Details LastModified Time None Recorded Advance Directives Directive None Recorded Payers Insurance Date Sequence Insurance Name Policy Number Policy Martin Covered Member ID Martin Member ID Guarantor Name 02/22/2025 1 [facility] Gutierrez Borrero [id number] Gutierrez Borrero Notes Date Note Type Note Provider Name and Address Organization Details Recorded Time 10/15/2024 text/html Patient has a known bilateral hearing loss >AD. He lives in [place] and prefers [facility] office but will travel for sooner appt. Patient has [facility] 1700/ear benefit. Discussed various types, models and levels of technology. patient is interested in best technology in rechargeable option. Dispensed Widex Moment 440 Smart ADALGISA R hearing aids 09/11/2024. Excellent fit to real ear. PIERRE SULTANA, AUD [address] [place] [address], [place], [address], [facility] - [facility] 10/15/2024 09:58:08 10/23/2024 text/html Patient has a known bilateral hearing loss >AD. He lives in [place] and prefers [facility] office but will travel for sooner appt. Patient has [facility] 1700/ear benefit. Discussed various types, models and levels of technology. patient is interested in best technology in rechargeable option. Dispensed Widex Moment 440 Smart ADALGISA R hearing aids 09/11/2024. Excellent fit to real ear. PIERRE SULTANA, AUD [address] [facility],[address], [address], [facility] 10/23/2024 14:35:21 11/05/2024 text/html Patient has a known bilateral hearing loss >AD. He lives in [place] and prefers [facility] office but will travel for sooner appt. Patient has [facility] 1700/ear benefit. Discussed various types, models and levels of technology. patient is interested in best technology in rechargeable option. Dispensed Widex Moment 440 Smart ADALGISA R hearing aids 09/11/2024. Excellent fit to real ear. Was getting excessive battery drain on left aid. Did rapid repair/replacement . Transferred settings and relinked aids to [employer] . PIERRE SULTANA, AUD [address] [facility],[address], [address], [facility] 11/05/2024 09:16:34 02/10/2025 text/html 64 year [...] No nasal saline. ROBYN BRUNER MD [address] [facility],[address], [place], [address], [facility] 02/11/2025 10:03:59 02/25/2025 text/html Patient has a known bilateral hearing loss >AD. He lives in [place] and prefers [facility] office but will travel for sooner appt. Patient has [facility] 1700/ear benefit. Discussed various types, models and levels of technology. patient is interested in best technology in rechargeable option. Dispensed [employer] Moment 440 Smart ADALGISA R hearing aids 09/11/2024. Excellent fit to real ear. Was getting excessive battery drain on left aid. Did rapid repair/replacement . Transferred settings and relinked aids to Iphone .Wants to keep programming at #4 adaptation for clarity. Finds he sometimes feels some sounds too loud. Discussed setting up comfort program on gomez, wants to think about. PIERRE SULTANA, [facility] [address] [facility],[place] [address], [place], [address], [facility] - [facility] 02/25/2025 14:36:25
--- OUTSIDE RECORDS SUMMARY | 2025-04-28 11:46 | XMS_ITS | Encounter Summary ---
Author Organization [facility] Address [address] [place] [address] Phone Care Team Providers Care Herbarium Worker Name Role Phone Chava Robbins MD Primary Care Provider [phone] Zachary Barclay MD Unavailable [phone] Chava Robbins MD Unavailable Francoise Durant MD Unavailable Chava Robbins MD Unavailable [phone] Yvette Smith MD Unavailable [phone] Marcia Dooley MD Unavailable Deep Barrios MD Unavailable [phone] Encounter Details Date Type Department Care Team (Late st Contact Info) Description 01/12/2022 Transcribe Orders [facility] PFT Lab [address] [place] [address] Jah Naqvi MD, MS [address] [id number] [email or web address] Social History Tobacco Use Types Packs/Day Years Used Date Smoking Tobacco: Never Smokeless Tobacco: Never Alcohol Use Standard Drinks/Week Comments Never 0 (1 standard drink = 0.6 oz pur e alcohol) rare Sex and Gender Information Value Date Recorded Sex Assigned at Male 01/14/2019 4:46 PM EDT Legal Sex Male 5:49 PM EST Gender Identity Male 01/14/2019 4:46 PM EDT Sexual Orientation Straight 01/14/2019 4: 46 PM EDT 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, [employer]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 Not on file Not o n file Not on file documented as of this encounter Plan of Treatment Upcoming Encounters Date Type Department Care Team (Late st Contact Info) Description 12/15/2025 9:30 AM EDT Office Visit [facility] [address] [facility] 3rd Floor, [address] [place] [address] Sergio Baxter DO [address] [facility] [address] [place] [address] [email or web address] documented as of this encounter Visit Diagnoses Not on filedocumented in this encounter Additional Health Concerns Infection Onset Date Last Indicated Resolved Time CoV-Risk 01/30/2022 01/30/2022 02/10/2022 1:22 AM EDT CoV-Presumed 03/24/2022 03/24/2022 04/14/2022 1:21 AM EDT CoV-Risk 12/24/2023 12/24/2023 01/04/2024 1:24 AM EDT Assessment Noted Time A Body Mass Index follow-up plan has been documented for the patient 12/15/2020 2:59 PM EST PHQ-2 Depression Total Score: 0 12/13/19 21 5:17 PM EST documented as of this encounter Care Teams Herbarium Worker Relationship Specialty Start Date End Date Chava Robbins MD [address] [place] [address], [address] [place] [address] PCP - General 10/31/13 04/21/25 Zachary Barclay MD [address] [place] [address] Department of Neurology, [place] [address] [email or web address] Historical LMR Provider 02/17/15 Chava Robbins MD [address] [place] [address] Historical LMR Provider 07/28/17 Francoise Durant MD [address] [place] [address] Historical LMR Provider 07/28/17 04/21/25 Chava Robbins MD [address] [place] [address] Insurance Assigned Provider 01/12/24 04/21/25 Yvette Smith MD [address] [place] [address] Psychiatry 12/15/20 Marcia Dooley MD [address] [place] [address] Orthopedic Surgery 04/22/25 Deep Barrios MD [address] [place] [address] Psychiatry 04/22/25 documented as of this encounter Additional Source Comments The information contained in this document represents components of the legal health record. It is not the complete legal health record.[facility]
== END 2025-04-28 11:23 | disposition home or self-care (01) ==
LOC: HO.HSMS 10:36
PROVIDERS: PCP Internal Medicine; Visit Provider Psychiatry & Neurology Neurology
DX: G43.711 Chronic migraine without aura, intractable, with status migrainosus (principal); G43.119 Migraine with aura, intractable, without status migrainosus
CPT/HCPCS: 64615; 99211

== ENCOUNTER → 2025-04-28 10:36 | Outpatient (BNVA) | payer OTHER, SELFPAY | PROVIDERS: PCP Internal Medicine; Visit Provider Psychiatry & Neurology Neurology | DX: G43.711 Chronic migraine without aura, intractable, with status migrainosus (principal) | CPT/HCPCS: 64615; J0585 ==

== ENCOUNTER 2025-08-04 09:30 | Outpatient (AMB) | payer OTHER, SELFPAY ==
[2025-08-04 09:33] VITALS: BP 112/64; PULSE 58; O2SAT 99; BMI 25.9
--- NOTE | 2025-08-04 09:33 | A.OFFVIS_ITS ---
Vital Signs 08/04/25 09:33 Height 5 ft 10 in Weight 180 lb 4 oz BMI 25.9 BP 112/64 Blood Pressure Location Rt brachial Position Sitting Pulse 58 Pulse Source Pulse Oximeter Pulse Oximetry (%) 99 Oxygen Delivery Method Room Air Intake Visit Reasons: Botox Intake Note: Botox 200 Pt supplied Grain Operations Manager Required: No Accompanied by: Self / Same As Patient Allergies No Known Allergies Allergy (Verified 08/04/25 09:33) Medication List - Last Reconciled 08/04/25 by Yvette Smith MD atorvastatin 20 mg PO DAILY digital therapeutic,KAYLEE device ([employer] (migraine)) As directed dihydroergotamine (Trudhesa) 1 actuation in each nostril x1, may repeat dose x1 after 1h intranasally once; (Max: 4 actuations/day, 6 actuations/wk). Do NOT take w/in 24 hrs of a TRIPTAN. 28 days escitalopram oxalate 5 mg PO DAILY fremanezumab-vfrm (Ajovy) 675 mg (4.5 mL) subcut ONCE 90 days onabotulinumtoxinA (Botox) 200 units IM ONCE 12 weeks propranolol ER 60 mg PO DAILY tadalafil 5 mg PO DAILY ubrogepant 1/2 - 1 tab at onset of migraine, may repeat in 2 hours (max 200mg/day) orally ; PRN; 90 days zolmitriptan (Zomig) 1 spray intranasal Q2H PRN 30 days HPI Comments Details: ? 64y/o male comes for treatment of migraines with botox. How many migraine days prior to botox 25/month How long do the migraines last 2-3 days Intensity of migraine9/10 ER visits related to migraine 2 Effectiveness of botox from last two treatment(s) How many migraine days since receiving treatment: 1-2/month Change? in intensity of migraine?decreased Change in frequency of migraine?decreased Change in use of acute medication for migraine?decreased Change in quality of life?good ER visits related to migraine? none Have at least three months elapsed since last treatment (Last botox date - frequency of injections)- yes He is on Zomig 5mg nasal spray- 1 spray into 1 nostril, may repeat in 2 hours (max 2 sprays per day). May adjunct w/ Naproxen. Ubrelvy 50-100mg at onset of migraine, may repeat in 2 hrs (max 200mg/day). May adjunct w/ Naproxen. Previous acute migraine trials:?imitrex, relpax, maxalt, amerge , midrin, zomig tablet- not fully effective His headache days have decreased to 1-2/month with the above regimen. Most frequent reported adverse reactions following injection of botox for ch ronic migraine include neck pain (9%), headache(5%), eyelid ptosis(4%), migraine(4%), muscular weakness(4%), musculuskeletal stiffness(4%), bronchitis(3%), injection site pain (3%), musculoskeletal pain(3%), myalgia(3%), facial paresis(2%), HTN(2%) and muscle spasms(2%) were discussed in detail. ??? Botulinum toxin typeA 200units Lot no [id number] expiration 08/2027 was diluted with 4 cc of normal saline . ??? Muscles injected- ??? Frontalis 4 sites ??? Procerus 1 site ??? Oncology Rep- 2 sites ??? Temporalis- 8 sites ??? Occipitalis- 6 sites ??? Cervical paraspinals- 4 sites ??? Trapezius- 6 sites- 10 units each ??? 5 units each in 31 site ??? Total use- 185units ??? 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 [employer] Physical Exam Vital Signs: Last Vital Signs Pulse 58 08/04/25 09:33 BP 112/64 08/04/25 09:33 Pulse Ox 99 08/04/25 09:33 Oxygen Delivery Method Room Air 08/04/25 09:33 BMI result Body Mass Index 25.9 Const General: cooperative and no acute distress Orientation/consciousness: patient oriented x3 HEENT Head: Yes normocephalic Resp Effort & Inspection: normal respiratory effort and able to speak in complete sentences Neuro General: patient oriented x3, gait normal and CN's II-XI intact bilaterally Cognition (Neuro): normal cognition Motor exam (neuro): 5/5 motor strength present throughout Office Procedures Botulinum toxin Injection 76122 - Migraine Procedure code (CPT) selection complete Office Meds onabotulinumtoxinA 200 unit solution for injection Performing Provider: Yvette Smith MD Performing Location: [facility] Neurology [facility] Administered by: Yvette Smith MD on 08/04/25 09:59 Dose Route Admin Location Dispensed Lot Number Expiration Date [facility] Gag Writer 185 unit subcut 200 units [id number] ALLERGAN /BOTOX Total Dispensed Waste 200 units 7.5 % Comments: see HPI Assessment & Plan Assessment & Plan (1) Chronic migraine without aura, intractable, with status migrainosus: Code(s): G43.711 - Chronic migraine without aura, intractable, with status migrainosus Category: Medical (2) Migraine with aura, intractable, without status migrainosus: Code(s): G43.119 - Migraine with aura, intractable, without status migrainosus Category: Medical Plan Patient tolerated the procedure well He will call with any side effects The tremors are likely exaggerated physiological tremors - will follow up clinically Orders: Orders AMB Botulinum toxin Injection - Patient Supplied N/C Today G43.711 - Chronic migraine without aura, intractable, with status migrainosus Coding Level of Care Code Est Pt Level 1 (19244) Diagnoses Chronic migraine without aura, intractable, with status migrainosus G43.711 Migraine with aura, intractable, without status migrainosus G43.119 CPT Codes Botox Injection - Botox 3: 50135 - Migraine ([id number])
--- OUTSIDE RECORDS SUMMARY | 2025-08-04 10:54 | XMS_ITS | Encounter Summary ---
Author Organization [facility] Address [address] [place] [address] Phone Care Team Providers Care Optometric Assistant Name Role Phone Chava Robbins MD Primary Care Provider Zachary Barclay MD Unavailable [phone] Chava Robbins MD Unavailable Francoise Durant MD Unavailable [phone] Chava Robbins MD Unavailable Yvette Smith MD Unavailable [phone] Marcia Dooley MD Unavailable Deep Barrios MD Unavailable [phone] Chava Robbins MD Primary Care Provider Encounter Details Date Type Department Care Team (Late st Contact Info) Description 01/04/2022 Procedure Pass [facility] Endoscopy Admitting Dept Virtual Department [address] [place] [address] Social History Tobacco Use Types Packs/Day Years [...] 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, 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 Not on file Not o n file Not on file documented as of this encounter Plan of Treatment Upcoming Encounters Date Type Department Care Team (Late st Contact Info) Description 12/15/2025 9:30 AM EDT Office Visit [facility] [address] [facility] 3rd Floor, [address] [place] [address] Sergio Baxter DO [address] [facility] [address] [place] [address] documented as of this encounter Visit Diagnoses [...] documented as of this encounter Care Teams Optometric Assistant Relationship Specialty Start Date End Date Chava Robbins MD [address] [place] [address] PCP - General 10/31/13 04/21/25 Chava Robbins MD [address] [place] [address] PCP - General 07/24/25 Zachary Braclay MD [address] [place] [address] Department of Neurology, [place] [address] [email or web address] Historical LMR Provider 02/17/15 Chava Robbins MD [address] [place] [address] Historical LMR Provider 07/28/17 Francoise Durant MD [address] [place] [address] Historical LMR Provider 07/28/17 04/21/25 Chava Robbins MD [address] [place] [address] Insurance Assigned Provider 01/12/24 04/21/25 Yvette Smith MD [address] [place] [address] Psychiatry 12/15/20 Marcia Dooley MD [address] [place] [place] [address] Orthopedic Surgery 04/22/25 Deep Barrios MD [address] [place] [address] Psychiatry 04/22/25 documented as of this encounter Additional Source Comments The information contained in this document represents components of the legal health record. It is not the complete legal health record.[facility]
--- OUTSIDE RECORDS SUMMARY | 2025-08-04 10:54 | XMS_ITS | Encounter Summary ---
Author Organization [facility] Address [address] [place] [address] Phone Care Team Providers Care Retort Kiln Burner Name Role Phone Chava Robbins MD Primary Care Provider Zachary Barclay MD Unavailable [phone] Chava Robbins MD Unavailable Francoise Durant MD Unavailable [phone] Yin Gray MD Unavailable Chava Robbins MD Unavailable Yvette Smith MD Unavailable Marcia Dooley MD Unavailable Deep Barrios MD Unavailable Chava Robbins MD Primary Care Provider Encounter Details Date Type Department Care Team (Late st Contact Info) Description 09/26/2021 Transcribe Orders [facility] PFT Lab [address] [place] [address] Jah Naqvi MD, MS [address] [phone] [email or web address] Social History Tobacco Use Types Packs/Day Years [...] 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 file Not o n file Not on file documented as of this encounter Plan of Treatment Upcoming Encounters Date Type Department Care Team (Late st Contact Info) Description 12/15/2025 9:30 AM EDT Office Visit [facility] [address] [place] [address] 3rd Floor, [address] [place] [address] Sergio Baxter DO [address] [place] [address] [email or web address] documented as of this encounter Visit Diagnoses [...] documented as of this encounter Care Teams Retort Kiln Burner Relationship Specialty Start Date End Date Chava Robbins MD [address] [place] [address] PCP - General 10/31/13 04/21/25 Chava Robbins MD [address] [place] [address] PCP - General 07/24/25 Zachary Barclay MD [address] [place] [address] Department of Neurology, [place] [address] [email or web address] Historical LMR Provider 02/17/15 Chava Robbins MD [address] [place] [address] Historical LMR Provider 07/28/17 Francoise Durant MD [address] [place] [address] Historical LMR Provider 07/28/17 04/21/25 Yin Gray MD [address] [place] [address] Orthopedics & Sports [facility], [place] [address] Historical LMR Provider 07/28/17 Chava Robbins MD [address] [place] [address] Insurance Assigned Provider 01/12/24 04/21/25 Yvette Smith MD [address] [place] [address] Orthopedics & Sports [facility], [place], [place] [phone] Psychiatry 12/15/20 Marcia Dooley MD [facility] [place] [address] Orthopedic Surgery 04/22/25 Deep Barrios MD [address] [place] [address] Psychiatry 04/22/25 documented as of this encounter Additional Source Comments The information contained in this document represents components of the legal health record. It is not the complete legal health record.[facility]
--- OUTSIDE RECORDS SUMMARY | 2025-08-04 10:54 | XMS_ITS | Encounter Summary ---
Author Organization [facility] Address [address] [place] [address] Phone Care Team Providers Care Cost Control Analyst Name Role Phone Chava Robbins MD Primary Care Provider Zachary Barclay MD Unavailable [phone] Chava Robbins MD Unavailable [phone] Francoise Durant MD Unavailable [phone] Chava Robbins MD Unavailable Yvette Smith MD Unavailable Marcia Dooley MD Unavailable Deep Barrios MD Unavailable [phone] Chava Robbins MD Primary Care Provider [phone] Encounter Details Date Type Department Care Team (Late st Contact Info) Description 01/12/2022 Transcribe Orders [facility] PFT Lab 30 [place] [address] Jah Naqvi MD, MS [address] [phone] Social History Tobacco Use Types Packs/Day Years [...] 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 [address] [place] [address] documented as of this encounter Visit Diagnoses [...] documented as of this encounter Care Teams Cost Control Analyst Relationship Specialty Start Date End Date Chava Robbins MD [address] [place] [address], [address] [place] [address] [email or web address] PCP - General 10/31/13 04/21/25 Chava Robbins MD [address] [place] [address], [address] [place] [address] PCP - General 07/24/25 Zachary Barclay MD [address] [place] [address] Department of Neurology, [place] [address] [email or web address] Historical LMR Provider 02/17/15 Chava Robbins MD [address] [place] [address] Historical LMR Provider 07/28/17 Francoise Durant MD [address] [place] [address] Historical LMR Provider 07/28/17 04/21/25 Chava Robbins MD [address] [place] [address]60 Insurance Assigned Provider 01/12/24 04/21/25 Yvette Smith MD [address] [place] [address] Psychiatry 12/15/20 Marcia Dooley MD [address] [place] [address] Orthopedic Surgery 04/22/25 Deep Barrios MD [address] [place] [address] Psychiatry 04/22/25 documented as of this encounter Additional Source Comments The information contained in this document represents components of the legal health record. It is not the complete legal health record.[facility]
--- OUTSIDE RECORDS SUMMARY | 2025-08-04 10:54 | XMS_ITS | Clinical Summary ---
Author Organization [facility] Address [address] [place] [address] [place] [id number] Phone Care Team Providers Care Sap Director Name Role Phone Zachary Barclay MD Unavailable [phone] Yvette Smith MD Unavailable [phone] Marcia Dooley MD Unavailable Deep Barrios MD Unavailable Chava Robbins MD Primary Care Provider Allergies No known active allergies Medications BOTOX 200 unit SolR every 3 (three) months. 10/13/19 21 Active propranoloL (INDERAL LA) 60 mg 24 hr capsule Take 60 mg by mouth daily. 01/04/20 21 Active UBRELVY 100 mg tablet Take 100 mg by mouth once as needed. 03/04/20 21 Active QUEtiapine (SEROQUEL XR) 50 mg Tb24 Take 100 mg by mouth nightly at bedtime. 06/30/20 21 Active fluticasone propionate (FLONASE) 50 mcg/actuation nasal spray 1 spray by Nasal route daily. Active multivitamin-coal miner als-lutein (CENTRUM SILVER) Tab Take 1 tablet by mouth daily. Active biotin 1 mg tablet Take 1,000 mcg by mouth daily. Active SUMAtriptan (IMITREX) 100 MG tabletIndications: Migraine without status migrainosus, not intractable, unspecified migraine type TAKE 1 TAB AT ONSET OF HEADACHE, CAN REPEAT IN 2 H IF HEADACHE PERSISTS 8 tablet 2 11/21/19 23 Active ZOLMitriptan (ZOMIG) 5 mg nasal solution 04/24/20 23 Active AJOVY AUTOINJECTOR 225 mg/1.5 mL AtIn 1.5 mL by abdominal subcutaneous route daily. 02/06/20 24 Active TRUDHESA 0.725 mg/pump act. (4 mg/mL) [place] 1 mg. 02/14/20 24 Active divalproex (DEPAKOTE) [address] tablet Take 1 tablet (250 mg total) by mouth 2 (two) times a day. 250mg am and 500mg in the pm 90 tablet 11/21/19 25 Active Additional Information Patient taking differently:250 mg Oral 2 times daily,250mg am and 250 mg in the pm, Reported on 04/22/2025 digital therapeutic,KAYLEE device ([employer] DIGITAL FLAVIO, MIGRAINE,) Misc USE ONE 45 MINUTE TREATMENT EVERY OTHER DAY FOR PREVENTION OR AT ONSET OF MIGRAINE Active escitalopram oxalate (LEXAPRO) 5 MG tabletIndications: Anxiety TAKE 1 TABLET BY MOUTH NIGHTLY AT BEDTIME. 90 tablet 3 12/16/19 25 Active gabapentin (NEURONTIN) 300 MG capsule TAKE 1 CAPSULE BY MOUTH EVERY DAY AT BEDTIME FOR 30 DAYS 01/22/20 25 Active tadalafiL (CIALIS) 2.5 mg Tab TAKE 1 TABLET BY MOUTH EVERY DAY 90 tablet 3 05/04/20 25 Active atorvastatin (LIPITOR) 20 MG tabletIndications: Hyperlipidemia, unspecified hyperlipidemia type Take 1 tablet (20 mg total) by mouth daily. 90 tablet 3 06/09/20 25 Active scopolamine (TRANSDERM-SCOP) 1 mg over 3 daysIndications:Mo tion sickness, initial encounter Place 1 patch onto the skin every third day. 10 patch 07/24/20 25 Active Active Problems Problem Noted Date Diagnosed Date Chronic constipation 04/22/2025 Assessment & Plan (04/22/2025 12:44 PM EDT): Better using MiraLAX but still having some trouble with constipation. I asked him to try and divide the dose twice daily and titrate as needed so he has a soft but formed bowel movement at least once a day. I strongly encouraged him to avoid straining to reduce the risk of bleeding and infection. Acute pain of right shoulder 03/10/2024 Assessment & Plan (04/22/2025 12:45 PM EDT): Having subacromial decompression next week with Dr. Walker. Assessment & Plan (03/13/2024 1:43 PM EDT): The patient's shoulder pain is likely due to a partial rotator cuff issue or bursitis. There is no evidence of osteoarthritis, bone spurs, or calcifications. The patient is advised to take ibuprofen 600 or 800 mg thrice daily for a few days to alleviate inflammation. A referral to orthopedics will be made. The patient is advised to apply heat to the shoulder 1 to 2 times daily, take a hot shower, use a heating pad, or use a hand cloth under warm water. Dysphagia 07/19/2022 Assessment & Plan (07/19/2022 3:09 PM EDT): Speech therapy is recommending a modified barium swallow (see their note from 05/30/2022). Will defer further evaluation and management to PCP. Pulmonary nodules 07/19/2022 Overview (07/19/2022): 4 mm or smaller, most of which are calcified, seen on 06/28/[address] scan. Assessment & Plan (07/19/2022 3:10 PM EDT): In a never smoker, these are most probably benign and no further longitudinal chest CT follow-up is indicated. Laryngeal muscle tension disorder 04/20/2022 Assessment & Plan (07/20/2024 11:41 PM EDT): He has noted increased symptoms with his recent weight gain. Assessment & Plan (07/19/2022 3:11 PM EDT): Continue working with speech therapy. Agree that massage therapy may be helpful. Assessment & Plan (04/20/2022 3:14 PM EDT): He will initiate a trial of speech therapy next month. He was seen by ENT, with findings summarized in my office visit note from 02/07/2022. Vocal cord dysfunction 03/28/2021 Assessment & Plan (06/06/2024 8:48 AM EDT): This is present but stable Assessment & Plan (07/19/2022 3:10 PM EDT): Continue working with speech therapy. Assessment & Plan (04/20/2022 3:15 PM EDT): The etiology for his exertional dyspnea, worse on hot, humid days, remains unclear. He derived no benefits from a trial of PPI despite findings by ENT at the time of laryngoscopy. He derived no benefit from Breo. Chest x-ray, exercise stress test, echocardiogram, PFT, 6-minute distance walk, CBC and methacholine challenge study are all normal. We will proceed with a chest CT scan and, if also normal and with no improvement over the next few months, consider referral to Dr. Doherty in [place] for further evaluation and consideration of level 3 CPET. Assessment & Plan (02/07/2022 3:12 PM EDT): The etiology of his dyspnea on exertion remains unclear. Extensive cardiopulmonary work-up has been normal. Despite his negative methacholine challenge study, we agreed to a trial of low- dose Breo for the next 6 weeks. He also agreed to a trial of speech therapy given dyspnea most pronounced with inspiration and sometimes triggered by stress as well as location in the upper chest and anterior neck. If these 2 inventions do not yield any significant clinical benefit, will consider chest CT scan and referral to [place] for CPET. Assessment & Plan (12/27/2021 1:51 PM EDT): He reports that he is still short of breath. He had a stress test done last year which was normal. He also had an echocardiogram done in April of last year which was overall normal. There is no cardiac cause that has been identified for his shortness of breath. He has been working with Dr. Naqvi. The patient will be reportedly having a methacholine PFT study soon. Assessment & Plan (08/04/2021 11:51 AM EDT): The etiology for his exertional dyspnea remains unclear despite an extensive work-up which, overall, has been reassuring without evidence of cardiovascular disease, completely normal pulmonary function studies and a normal CBC. I also reviewed with him the fact that he achieved excellent exercise tolerance on his cardiac stress test. While normal PFT does not completely exclude asthma, the clinical scenario is not highly suggestive of this. We agreed to proceed with a methacholine challenge study and continue as needed albuterol in the meantime. Given his history of anxiety and reports of constriction, like I cannot get enough air in , I do wonder about the possibility of laryngeal tension and/or mild vocal cord dysfunction. He agrees to a referral to ENT for initial evaluation. Following that, we could consider a referral to speech therapy if felt indicated. His intermittent dry cough could be a symptom of this as well. His chest x-ray has not been repeated in the past 2-1/2 years; if the above is unrevealing, repeat chest imaging could be considered. He is fully vaccinated against COVID-19 and influenza this fall. We reviewed the fact that he will become eligible for a [employer] COVID-19 booster later this week. Assessment & Plan (03/28/2021 8:55 AM EDT): As mentioned I am going to order an echo and a nuclear stress test I will see him thereafter in follow-up Anxiety 04/01/2018 Assessment & Plan (04/22/2025 12:44 PM EDT): Doing better with current medication. Medication continue to be titrated by psychiatry which seems to be helping his weight. Follow-up as planned with his psychiatrist. Assessment & Plan (03/13/2023 11:13 AM EDT): Present but stable Assessment & Plan (08/01/2022 1:36 PM EDT): Present but stable Assessment & Plan (07/19/2022 3:12 PM EDT): I reviewed with the patient today that this could be contributing to laryngeal tension and vocal cord dysfunction, and that optimization of therapies for this may help in managing VCD and laryngeal tension as well as dyspnea which results these processes. Hyperlipidemia 04/01/2018 Assessment & Plan (03/17/2025 10:37 AM EDT): As mentioned he will continue with his diet and try to increase exercise further in addition we are going to increase his Lipitor to 20 mg daily and recheck his lipid panel in 7 to 9 months we definitely want his triglycerides less than 150 and preferably less than 100 and LDL even lower ideally we would want his HDL higher I am not sure why it fell from 53-43 Assessment & Plan (06/06/2024 8:48 AM EDT): This patient is definitely on the right road with diet and exercise and continue statin therapy. We wrote retest his lipids in 8 months I will see him in 9 months time Assessment & Plan (04/27/2023 10:00 PM EDT): Continue atorvastatin. Assessment & Plan (03/13/2023 11:13 AM EDT): As mentioned we will try to alter his total cholesterol to HDL ratio by increasing exercise we will repeat his numbers in 5 months I will see him in 6 months Assessment & Plan (08/01/2022 1:36 PM EDT): As mentioned he takes Lipitor 10 mg a day with good control of LDL and triglycerides HDL needs to go up a bit more with exercise Assessment & Plan (12/27/2021 1:53 PM EDT): His lipid panel was overall abnormal and his LDL was 142 last year. I have talked to him about starting a statin. The patient states that he would not like to but he would be willing to consider it. We will get another lipid panel. I will follow- up with him over the phone. Otherwise, follow-up in [address] Baxter. Assessment & Plan (03/28/2021 8:55 AM EDT): LDL for his risk should be less than 100 mg/dL recently checked it was 140 mg/dL and HDL was 40 putting him at a somewhat unfavorable ratio Obstructive sleep apnea on CPAP 04/01/2018 Assessment & Plan (04/22/2025 12:42 PM EDT): Doing well with CPAP, continue same Assessment & Plan (03/17/2025 10:36 AM EDT): Present but treated Assessment & Plan (06/06/2024 8:48 AM EDT): He has sleep apnea but over time I feel that this should get better with weight loss Assessment & Plan (08/01/2022 1:36 PM EDT): He has treatment for this which is going well Assessment & Plan (12/27/2021 1:52 PM EDT): Continue with CPAP. Assessment & Plan (08/04/2021 11:17 AM EDT): Followed by sleep medicine. Advised that he continue to use his noninvasive ventilator support device at night as prescribed, and follow-up with them as scheduled. Assessment & Plan (03/28/2021 8:55 AM EDT): This patient has obstructive sleep apnea I will discuss with him what treatment he is getting for it Chronic headache disorder 08/30/2012 Overview (04/22/2025): Treated by neurology. Botox injections every 3 months Assessment & Plan (04/22/2025 12:43 PM EDT): Doing well with current treatment. Follow-up as planned with neurology Subclinical hypothyroidism Assessment & Plan (04/22/2025 12:42 PM EDT): Asymptomatic and last TSH had returned to normal. Will recheck. Assessment & Plan (03/17/2025 10:37 AM EDT): Clinically euthyroid Assessment & Plan (07/20/2024 11:43 PM EDT): The last check of his thyroid function was normal. Assessment & Plan (04/27/2023 10:02 PM EDT): Will get updated TSH. Assessment & Plan (03/13/2023 11:14 AM EDT): TSH was a little high but free T4 was normal Resolved Problems Problem Noted Date Diagnosed Date Resolved Date Weight gain 07/20/2024 04/22/2025 Assessment & Plan (07/20/2024 11:46 PM EDT): His medications are stable and no recent changes to explain his weight gain. He reports no change in his physical activity or diet to explain this either. He does admit to needing to snack less. No fluid wave noted on exam to suggest intraabdominal process. Hypoxia 03/14/2024 07/20/2024 Assessment & Plan (03/14/2024 4:26 PM EDT): His oxygen saturation levels are currently in the low 90s, which is acceptable, but a consistent reading in the mid-80s would be concerning. If his condition at all deteriorates, he should seek immediate medical attention at the emergency room. Fever 03/14/2024 04/22/2025 Assessment & Plan (03/14/2024 4:26 PM EDT): High fever, nearly 102F despite antibiotic treatment for pneumonia. He has not noted any improvement in his symptoms w/ nearly 24 hours of azithromycin and amoxicillin tx. Fever supportive care measures reviewed. He has been advised to maintain adequate hydration. Red flags/ED precautions discussed including s/sx of sepsis. If his temperature increases, or if he becomes confused, disoriented, or less alert than usual, it could indicate that the infection has spread beyond his lungs into his bloodstream. In such a scenario, intravenous antibiotics would be required, necessitating hospital admission. Acute cough 03/13/2024 07/20/2024 Assessment & Plan (03/14/2024 4:39 PM EDT): Increasingly productive cough, initially attributed to viral URI/upper airway congestion w/ PND. Prescribed Tessalon Perles previously, not effective. The use of Vicks VapoRub is deemed safe. Now w/ identified LLL pneumonia. Does have a hx of mild dysphagia w/ slight delay in pharyngeal clearing but no overt aspiration on previous barium swallow. Has worked with [facility] previously re: this issue and also vocal cord dysfunction. Current cough not associated with meals, aspiration pneumonia is not likely especially w/ consolidation located in left lung base. Assessment & Plan (03/13/2024 1:45 PM EDT): His semi-productive cough is likely a result of postnasal drip, which exacerbates during the night/evenings, and first thing in the morning. His symptoms are likely a viral etiology, although allergic rhinitis is also possible. Afebrile, not hypoxic or tachycardic. No current evidence of pneumonia. A prescription for Tessalon Perles, to be taken up to thrice daily as needed, will be sent to [facility]. The patient is advised to continue using Flonase twice daily. He will also continue other self-care and supportive measures. Red flags/ED precautions reviewed. Left lower lobe pneumonia 03/13/2024 Assessment & Plan (04/03/2024 12:02 AM EDT): Continued versus recurrent left lower lobe pneumonia-symptoms began worsening again relatively quickly after completion of antibiotics. Will treat with Levaquin for 5-day course. Ordered for Tessalon and Hycodan as well. Would recommend obtaining chest x-ray now to evaluate extent of pneumonia currently. Assessment & Plan (03/14/2024 4:29 PM EDT): Newly identified LLL pneumonia, not responding well to oral antibiotics, initiated yesterday. Today with high fever and mild hypoxia, de-sats into 80's with any activity. His BP is also much lower than his baseline and he appears quite ill. His current vital signs mirror those recorded by the EMS earlier today. His low BP and HR is worrisome that he is not compensating for his decreased respiratory capacity. His and I agree there is a low threshold at this point for EMS activation or family transportation to the ED. We both urged him to consider going now. Change in mole 06/27/2023 04/22/2025 Assessment & Plan (06/27/2023 8:44 PM EDT): He has some lesions that warrant further evaluation with dermatology. Referral placed. Acute right-sided low back p ain without sciatica 06/08/2018 04/22/2025 Assessment & Plan (09/09/2023 9:46 PM EST): Will treat with Percocet and cyclobenzaprine. We discussed further evaluation if he does not improve as expected. Assessment & Plan (06/08/2018 11:10 AM EDT): Patient with the back pain did discuss concerned that he might be having multiple injuries over the past to have a herniated disc did recommend core strengthening exercises demonstrated and also pain medication just for nighttime use. He will continue chiropractor and discuss possible physical therapy Migraine 04/01/2018 04/22/2025 Assessment & Plan (07/20/2024 11:43 PM EDT): There has been no change in his medications which could explain weight gain. Assessment & Plan (04/27/2023 10:02 PM EDT): Doing well with Botox. Anxiety disorder 08/04/2021 Assessment & Plan (03/28/2021 8:56 AM EDT): Definitely present but managed Encounters Date Type Department Care Team Description 07/29/2025 Telephone [facility] [place] [id number] [place] [address] Chava Robbins MD Referral (Name of the office where the patient has been seen/requests to be seen: [facility], Neurology and Sleep Medicine/2. Reason for referral/specialist appointment and the diagnosis code: G43.711/ 2A. Have you seen this provider before for this same problem? YES/NO: yes/ 2B. If this is a new problem, is your PCP aware of your symptoms? YES/NO: yes/3. Date of appointment(s):2024/4. Name of specialist provider: Yvette Smith/Naun. NPI number to enter for referral authorization (enter n/a if) 07/24/2025 1:40 PM EDT Telemedicine [facility] [address] [place] [address] Kerri Mackey PA-C Motion sickness, initial encounter (Primary Dx) 06/09/2025 Refill [facility] [address], [address] [place] [address] Sergio Baxter, Medication Refill 05/04/2025 Refill [facility] [address] [place] [address] Laurie King PA-C Med Change Request from Last 3 Months Immunizations Immunization Administration Dates Next Due COVID-19 (Pre-07/30) Pfizer Vaccine, mRNA, PF 02/03/2021,01/13/2021 COVID-19 (Pre-07/30) Pfizer Vaccine, mRNA, xuan-sucrose, PF 08/12/2021 COVID-19 Pfizer Comirnaty Vaccine 12+ 07/11/2023 INFLUENZA, SPLIT VIRUS, TRIVALENT PF 07/18/2024 INFLUENZA, SPLIT VIRUS, TRIV ALENT W/ PRESERVATIVE IM 07/19/2017 Influenza Quadrivalent Prese rvative Free IM 06/25/2023,06/30/2022,07/30/2020,08/14,09/05/2016 Influenza Quadrivalent w/ Pr eservative IM 07/09/2019,07/15/2015 Influenza Recombinant Lucia valent Preservative Free IM 07/21/2021 Influenza, Unspecified Formulation 07/21/2020 Pneumococcal conjugate PCV20 04/22/2025 Pneumococcal polysaccharide PPSV23 02/22/2012 RSV Vaccine (monovalent, adjuvanted) 07/21/2024 Td (adult),2 Lf Tetanus Toxo id, PF, Adsorbed 03/25/2021 Tdap 02/17/2011 Zoster recombinant 03/02/2021,12/28/2020, 021 Family History Medical History Relation Comments Crohn's disease Father Dementia Father Hyperlipidemia Father off statins for concern of contribution to dementia Asthma Mother Relation Status Comments Father (Age 81) Mother Alive Social History Tobacco Use Types Packs/Day Years Used Date Smoking Tobacco: Never Smokeless Tobacco: Never Tobacco Cessation:Counseling Given: Not Answered Alcohol Use Standard Drinks/Week Comments Never 0 (1 standard drink = 0.6 oz pur e alcohol) rare Child or Family Care Answer Date Record ed Do you have problems with on e of the following making it difficult for you to work, study, or receive health care? No 04/24/2023 Education Answer Date Recorded Are you interested in more education? Not on pascale e 04/24/2025 Are you concerned about learning? Not on file 04/24/2025 No 04/24/2025 No 04/24/2025 Food Answer Date Recorded Within the past 6 months we worried whether our food would run out before we got money to buy more. Never True 04/24/2023 Within the past 6 months the food we bought just didn't last and we didn't have enough money to get more. Never True Residential Stability Answer Date Recor ded What is your housing situation today? I have petey sing 04/24/2023 How many times have you move d in the past 12 months? Zero (I did not move) 04/24/2023 Paying for Meds Answer Date Recorded Do you have trouble paying for medicines? No 04/24/2023 Paying Utility Bills Answer Date Record ed Do you have trouble paying your heating or elect ricity bill? No 04/24/2023 Transportation Answer Date Recorded Has the lack of transportati on kept you from medical appointments or from getting medications? No 04/24/2023 Unemployment Answer Date Recorded Are you currently unemployed or working on a part-time or temporary basis, and looking for work? No 04/23/2022 Digital Access Answer Date Recorded No 04/24/2025 No 04/24/2025 Reliable internet access at home? Not on file 04/24/2025 Device with a working camera? Not on file Intimate Partner Violence Answer Date R ecorded Are you denied basic needs s uch as food, clothing, or medical care? No 04/15/2025 In the past 12 months have y ou been in a relationship with a person who hurts, threatens, or tries to control you? No 04/15/2025 Are you denied basic needs s uch as food, clothing, or medical care? No 04/15/2025 In the past 12 months have y ou been in a relationship with a person who hurts, threatens, or tries to control you? 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 Not on file Not on fi le Not on file Last Filed Vital Signs Vital Sign Reading Time Taken Comments Blood Pressure 98/57 04/22/2025 9:30 AM EDT Pulse 62 04/22/2025 9:30 AM EDT Temperature 36.3 C (97.3 F) 04/22/2025 9:30 AM EDT Respiratory Rate 16 01/28/2025 10:41 AM EDT Oxygen Saturation 100% 04/22/2025 9:30 AM EDT Inhaled Oxygen Concentration - - Weight 84.6 kg (186 lb 9.6 oz) 04/22/2025 9:30 A M EDT Height 177 cm (5' 9.69 ) 04/22/2025 9:30 AM EDT Body Mass Index 27.02 04/22/2025 9:30 AM EDT Plan of Treatment Upcoming Encounters Date Type Department Care Team (Late st Contact Info) Description 12/15/2025 9:30 AM EDT Office Visit [facility] [address] [facility] [address], [address] [place] [address] Sergio Baxter, [address] [facility] [address] [place] [id number] Health Maintenance Due Date Last Done Comments WIL 2007 FIT TEST 2007 FOBT 2007 SIGMOIDOSCOPY 2007 VIRTUAL COLONOSCOPY 2007 INFLUENZA VACCINE (#1) 2025 , 06/25/2023, 06/30/2022, Additional history exists COVID-19 VACCINE (2024- season) 2025 06/21/2024, 07/11/2023, 06/30/2022, Additional history exists VALPROIC ACID (DEPAKENE) LEVEL 02/03/2026 02/03/2025, 06/03/2021, 07/14/2019, Additional history exists DEPRESSION SCREENING 04/15/2026 04/15/2025 COLONOSCOPY 01/04/2027 01/04/2022, 06/08/2011 COLORECTAL CANCER SCREENING 01/04/2027 SCREENING FOR DIABETES 07/18/2027 07/18/2024, 2020 LIPID PANEL 03/10/2030 03/10/2025, 05/09, 2023, Additional history exists Adult Td,Tdap Booster 03/25/2031 03/25/2021, 011 ZOSTER VACCINES Completed 03/02/2021, 12/07, 12/15/2020 HEPATITIS C SCREENING Completed 06/03/2021, 021 HIV ONE-TIME SCREENING (18-65 YEARS) Completed 06/03/2021 RSV VACCINE Completed 07/21/2024 PNEUMOCOCCAL VACCINES (50+ years) Completed 04/22/2025, 02/22/2012 SMOKING STATUS SCREENING (Once After 26 Yrs) Completed 04/22/2025 HEPATITIS A VACCINES Aged Out No long er eligible based on patient's age to complete this topic HIB VACCINES Aged Out No longer eligi ble based on patient's age to complete this topic MENINGOCOCCAL VACCINES (ACWY) Aged Out No longer eligible based on patient's age to complete this topic MENINGOCOCCAL VACCINES (B) Aged Out N o longer eligible based on patient's age to complete this topic Medical Devices Not on file Procedures Procedure Name Priority Date/Time Associated Diagnosis Comments LIPID PANEL Routine 03/10/2025 7:16 AM EDT Hyperlipidemia, unspecified hyperlipidemia type VALPROIC ACID Routine 02/03/2025 7:09 AM EDT Medication monitoring encounter ENDOSCOPY, COLON 01/04/2022 9:33 AM EDT HEPATITIS C ANTIBODY, QUALITATIVE Routine 06/03/2021 10:57 AM EDT Need for hepatitis C screening test from Last 3 Months or Most Recently Relevant to Health Maintenance Results * (ABNORMAL) Lipid panel (03/10/2025 7:16 AM EDT) HDL 43 mg/dL [facility] Comment: Interpretation <40 mg/dL: Low HDL cholesterol (major risk factor for CHD) Greater than or equal to 60 mg/dL: High HDL cholesterol ( negative risk factor for CHD) HDL - cholesterol is affected by a number of factors, e.g. smoking, excerise, hormones, sex and age. CHOLESTEROL 170 0 - 240 mg/dL [facility] TRIGLYCERIDES 166(H) 30 - 160 mg/dL [facility] LDL 94 50 - 129 mg/dL [facility] Comment: LDL levels in terms of risk for coronary heart disease: <100 mg/dL: Optimal 100-129 mg/dL: Near or above optimal 130-159 mg/dL: Borderline high 160-189 mg/dL: High >190 mg/dL: Very High CARDIAC RISK RATIO 4.0 3.4 - 5.0 [facility] Blood 03/10/2025 7:16 AM EDT 03/10/2025 7:18 AM EDT us Sergio Baxter DO LAB BLOOD ORDERABLES Final Re sult [facility] [address] [place] [address] * (ABNORMAL) Valproic acid (02/03/2025 7:09 AM EDT) VALPROIC ACID 44.5(L) 50.0 - 100.0 ug/mL [facility] Blood 02/03/2025 7:09 AM EDT 02/03/2025 7:19 AM EDT us Chava Robbins MD LAB BLOOD ORDERABLES Final Result [facility] [address] [place] [address] * ENDOSCOPY, COLON (01/04/2022 9:33 AM EDT) Narrative Transcriptions Perry Gastelum MD - 01/04/2022 9:33 AM EDT Patient Name: Gutierrez Gissell Attending MD:: PERRY GASTELUM MD, Procedure Date: 01/04/2022 9:33 AM Date of : 1960 Age: 61 Admit Type: Outpatient Gender: Male Room: [place] [address] Referring MD: Chava Robbins MD Exam Type: Colonoscopy Indications: Screening for colorectal malignant neoplasm Medications: Monitored Anesthesia Care Procedure: Informed consent was obtained from the patientafter discussion of the indications, limitations, alternatives, benefits, and risks of the procedure. Risks specifically discussed include but are not limited to medication reactions, missed lesions, bleeding, perforation, or the need for emergent surgery. Throughout the procedure, the patient's blood pressure, pulse, end-tidal CO2, and oxygensaturations were monitored continuously. The Olympus adult variable colonoscope CF-[id number] #4 was introduced through the anus and advanced to the cecum, identified by appendiceal orifice andileocecal valve. The colonoscopy was performed without difficulty. The patient tolerated the procedurewell. The quality of the bowel preparation was excellent. The quality of the bowel preparation was evaluated using the BBPS (Theodore Bowel Preparation Scale)with scores of: Right Colon = 3, Transverse Colon = 3and Left Colon = 3 (entire mucosa seen well with no residual staining, small fragments of stool oropaque liquid). The total BBPS score equals 9. Anatomical landmarks were photographed. Complications: No immediate complications. Estimated blood loss: Minimal. Findings: The perianal and digital rectal examinations were normal. Two sessile polyps were found in the ascendingcolon. The polyps were 3 to 6 mm in size. These polypswere removed with a cold snare. Resection and retrieval were complete. The exam was otherwise normal throughout theexamined colon. Impression: - Two 3 to 6 mm polyps in the ascending colon,removed with a cold snare. Resected and retrieved. Recommendation: - Discharge patient to home. - Await pathology results. PERRY GASTELUM MD, 01/04/2022 10:04:26 AM This report has been signed electronically. Number of Addenda: 0 Note Initiated On: 01/04/2022 9:33 AM Procedure Code(s): --- Professional --- 16867, Colonoscopy, flexible; with removal of tumor(s), polyp(s), or other lesion(s) by snare technique --- Technical --- 37190, Colonoscopy, flexible; with removal of tumor(s), polyp(s), or other lesion(s) by snare technique Diagnosis Code(s): --- Professional --- Z12.11, Encounter for screening for malignantneoplasm of colon K63.5, Polyp of colon --- Technical --- Z12.11, Encounter for screening for malignantneoplasm of colon K63.5, Polyp of colon CPT copyright 2020 [employer]. All rights reserved. The codes documented in this report are preliminary and upon auditing coder reviewmay be revised to meet current compliance requirements. Procedure Date: 01/04/2022 9:33:[address] [place] [address] [id number] Chava Robbins MD GI PROCEDURE ORDERABLES Fin al Result * Hepatitis C antibody, qualitative (06/03/2021 10:57 AM EDT) HCV NON-REACTIV E NON-REACTI VE [facility] Blood 06/03/2021 10:5 7 AM EDT 06/03/2021 11:04 AM EDT Chava Robbins MD LAB BLOOD ORDERABLES Final Result [facility] [address] [place] [address] from Last 3 Months or Most Recently Relevant to Health Maintenance Insurance [facility] EXPLORER POS [facility] EX[facility] POS EXPLORER POS EXPLORER POS [facility] EXPLORER POS [facility] EXPLORER POS [facility] Advance Directives For more information, please contact: [phone] (9AM - 5PM [facility], Sunday-Sunday) Documents on File Type Date Recorded Patient Driller Brake Lining Expl anation Healthcare Proxy 01/28/2020 HEALTH CARE PROXY MOLST 01/28/2020 MOLST Care Teams Sap Director Relationship Specialty Start Date End Date Chava Robbins MD [address] [place] [address], 2nd [place] [address] PCP - General 07/24/25 Zachary Barclay MD [address] [place] [address] Department of Neurology, Division [place] [address] [email or web address] Historical LMR Provider 02/17/15 Yvette Smith MD [address] [place] [address] Department of Neurology, [place] [address] Psychiatry 12/15/20 Marcia Dooley MD [address] [place] [address] Orthopedic Surgery 04/22/25 Deep Barrios MD [address] [place] [address] Psychiatry 04/22/25 Additional Source Comments The information contained in this document represents components of the legal health record. It is not the complete legal health record.[facility]
--- OUTSIDE RECORDS SUMMARY | 2025-08-04 10:54 | XMS_ITS | Encounter Summary ---
Author Organization [facility] Address [address] [place] [address] Phone Care Team Providers Care Journey Lineman Name Role Phone Chava Robbins MD Primary Care Provider Zachary Barclay MD Unavailable [phone] Chava Robbins MD Unavailable [phone] Francoise Durant MD Unavailable Yin Gray MD Unavailable Chava Robbins MD Unavailable Yvette Smith MD Unavailable Marcia Dooley MD Unavailable Deep Barrios MD Unavailable Chava Robbins MD Primary Care Provider Encounter Details Date Type Department Care Team (Late st Contact Info) Description 06/03/2021 Transcribe Orders [facility] Laboratory [address] [place] [address] Patricia Sahni PA-C [address] [place] [address] Social History Tobacco Use Types Packs/Day Years [...] 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, 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 Not on file Not o n file Not on file documented as of this encounter Plan of Treatment Upcoming Encounters Date Type Department Care Team (Late st Contact Info) Description 12/15/2025 9:30 AM EDT Office Visit [facility] [address] [place] [address] 3rd Floor, [address] [place] [address] Sergio Baxter DO [address] [place] [address] [place] [address] [email or web address] documented as of this encounter Visit Diagnoses [...] EST PHQ-2 Depression Total Score: 0 12/13/19 5:17 PM EST documented as of this encounter Care Teams Journey Lineman Relationship Specialty Start Date End Date Chava Robbins MD [address] [place] [address] PCP - General 10/31/13 04/21/25 Chava Robbins MD [address] [place] [address] PCP - General 07/24/25 Zachary Barclay MD [address] [place] [address] Department of Neurology, [place] [address] [email or web address] Historical LMR Provider 02/17/15 Chava Robbins MD [address] [place] [address] Historical LMR Provider 07/28/17 Francoise Durnat MD [address] [place] [address] Historical LMR Provider 07/28/17 04/21/25 Yin Gray MD [address] [place] [address] Orthopedics & Sports [facility], [place] [address] Historical LMR Provider 07/28/17 Chava Robbins MD [address] [place] [address] Insurance Assigned Provider 01/12/24 04/21/25 Yvette Smith MD [address] [place] [address] Orthopedics Sports Medicine, [place] [address] Psychiatry 12/15/20 Marcia Dooley MD [facility] [place] [address] Orthopedic Surgery 04/22/25 Deep Barriso MD [address] [place] [address] Psychiatry 04/22/25 documented as of this encounter Additional Source Comments The information contained in this document represents components of the legal health record. It is not the complete legal health record.[facility]
--- OUTSIDE RECORDS SUMMARY | 2025-08-04 10:55 | XMS_ITS | Data Portability ---
Author Organization [place] - [facility], Allergy Address [address] [address] Care Team Providers Care Bundle Cutter Name Role Phone MEDHAT SANTOS Primary Care Provider [phone] Assessment Encounter Date Assessment Date Assessment LastModified by Organization Details LastModified Time 10/23/2024 10/23/2024 Was getting excessive battery drain on left aid. Did rapid repair/replace ment. Transferred settings and relinked aids to [employer] . f/u 2 weeks [email or web address] Not available 10/23/2024 13:35:54 11/05/2024 11/05/2024 Wants to keep programming at #4 adaptation for clarity. Finds he sometimes feels some sounds too loud. Discussed setting up comfort program on gomez, wants to think about. Everything fine for now. 6 mo appt already made. [email or web address] Not available 11/05/2024 09:16:01 02/10/2025 02/10/2025 Nasal [...] wax guards. Annuapt made prior to my group home. Not available 02/25/2025 14:36:08 07/23/2025 07/23/2025 CL & CK both aids working fine. Firmware current. Told to contact office to schedule annual appt due to my group home. F/U PRN [email or web address] Not available 07/23/2025 15:30:28 Plan of Treatment Reminders Order Date Submit Date Provider Last Modified By Organization Details Last Modified Time Details Appointments None record ed. Lab None record ed. Referral None record ed. Procedures None record ed. Surgeries None record ed. Imaging None record ed. Medication Orders None record ed. Patient TargetsNo targets recorded. Patient InstructionsNo instructions recorded. Reason for Referral None Reported. Problems Name Problem SNOMED Code Status Onset Date Resolution Date Notes Provider Name and Address Organization Details Recorded Time Dyspnea 240212775 Active 2021 Other forms of dyspnea; Note: Date Diagnose d: 2 10:22 AM (R06.09) Not Available [facility] 4 03:28:10 Gastroeso phageal reflux disease without esophagit is 270330628 Active 2021 Gastro-e sophagea l reflux disease without esophagi tis; Note: Date Diagnose d: 2 10:22 AM (K21.9) Not Available [facility] 4 03:28:10 Sensorine ural hearing loss 08270650 Active 2023 PIERRE SULTANA, AUD [address] [facility],[place] [address], [place], [address] , [facility] - [facility] 4 10:41:54 Mixed conductiv e and sensorine ural hearing loss of left ear 304732263207 07 Active 2023 PIERRE SULTANA, AUD [address] [facility],[place] [address], [place], [address] , [facility] - [facility] 4 10:41:59 Sensorine ural hearing loss of bilateral ears 550910646 Active 2023 PIERRE SULTANA, AUD [address] [facility],[place] [address], [place], [address] , [facility] - [facility] 4 15:45:59 Nasal mucosa dry 76915489 Active 2024 Inez zuniga [place] - [facility] 5 16:28:15 Impacted cerumen in left ear 902994088091 9101 Active 2024 Inez zuniga [place] - [facility] 5 16:28:23 Sensorine ural hearing loss of bilateral ears 697490760 Active 2024 PIERRE SULTANA, AUD [address] [facility],[place] [address], [place], [address] , [facility] - [facility] 5 14:16:59 Problem Notes None recorded. Procedures Surgical History Date Name Laterality Status Provider Name and Address Organization Details Recorded Time 5 Cerumen removal without microscope left completed Inez Urias [facility] 02/10/2025 16:23:25 4 Comp Audio with Tymps - 05539 & 77662 completed PIERRE SULTANA, AUD [address] [facility],[place] [address], [place], [address], [facility] 07/02/2024 10:41:12 Imaging Results None recorded. Procedure Notes None recorded. Medical Equipment None Reported. Allergies No known drug allergies Medications Name Sig Start Date Stop Date Status Note LastModified by Organization Details LastModified Time cyclobenz aprine 10 mg tablet 06/28 completed Medicati on ID: [id number] B rand Name: cycloben zaprine Send Method: E-Prescr ibed Sub s Allowed: subs [place] Medic ationGen ericName : cycloben zaprine Not Available Not Available Not Available amoxicill in 500 mg capsule TAKE 1 CAPSULE BY MOUTH THREE TIMES A DAY FOR 10 DAYS active Not Available Not Available No t Available prednison e 10 mg tablet 06/28 completed Medicati on ID: [id number] B rand Name: predniso ne Send Method: E-Prescr ibed Sub s Allowed: subs OK Medic ationGen ericName : predniso ne Not Available Not Available Not Available atorvasta tin 20 mg tablet TAKE 1 TABLET DAILY active Not Available Not Available No t Available divalproe x 250 mg tablet,de layed release TAKE 1 TABLET EVERY MORNING; AND TAKE 2 TABLETSA T BEDTIME active Not Available Not Available No t Available atorvasta tin 10 mg tablet TAKE 2 TABLETS( 20 MG TOTAL)DA USAMA active Not Available Not Available No t Available azithromy ramu 250 mg tablet TAKE 2 TABLETS BY MOUTH TODAY, THEN TAKE 1 TABLET DAILY FOR 4 DAYS DIRECTED active Not Available Not Available No t Available benzonata te 200 mg capsule TAKE 1 CAPSULE BY MOUTH THREE TIMES A DAY NEEDED FOR COUGH active Not Available Not Available No t Available hydrocodo ne 5 mg-acetam inophen 325 mg tablet TAKE 1 TABLET EVERY 4-6 HOURS BY ORAL ROUTE NEEDED FOR 7 DAYS, FOR PAIN. active Not Available Not Available No t Available propranol ol ER 60 mg capsule,2 4 hr,extend ed release TAKE 1 CAPSULE ONCE DAILY active Not Available Not Available No t Available fluoxetin e 10 mg tablet TAKE 1 TABLET BY MOUTH EVERY DAY AT 8AM active Not Available Not Available No t Available sumatript an 50 mg tablet 2021 active Medicati on ID: [id number] B rand Name: sumatrip coreas succinat e Send Method: E-Prescr ibed Sub s Allowed: subs [place] [facility] : sumatrip coreas succinat e Not [...] before meals 06/28 completed Medicati on ID: [id number] D uration Value: 30 Prescri bed By [...] aerosol inhaler 06/28 completed Medicati on ID: [id number] B rand Name: albutero l sulfate Send Method: E-Prescr ibed Sub s Allowed: subs OK Medic ationGen ericName : albutero l sulfate Not Available Not Available Not Available ketoconaz ole 2 % topical cream 06/28 completed Medicati on ID: [id number] B rand Name: ketocona zole Sen d Method: E-Prescr ibed Sub s Allowed: subs OK Medic ationGen ericName : ketocona zole Not Available Not Available Not Available naproxen 500 mg tablet TAKE 1 TABLET BY MOUTH TWICE A DAY FOR 5 DAYS active Not Available Not Available No t Available methylphe nidate ER 36 mg tablet,ex tended release 24 hr 2021 active Medicati on ID: [id number] B rand Name: methylph enidate HCl Send Method: E-Prescr ibed Sub s Allowed: subs OK Medic ationGen ericName : methylph enidate HCl Not Available Not Available Not Available amoxicill in 875 mg-potass ium clavulana te 125 mg tablet TAKE 1 TABLET BY MOUTH TWICE A DAY FOR 7 DAYS active Not Available Not Available No t Available oxycodone 5 mg tablet TAKE 1 TABLET BY MOUTH EVERY 4 HOURS NEEDED active Not Available Not Available [...] mg/1.5 mL subcutane ous auto-inje ctor INJECT 4.5 ML SUBCUTAN EOUSLY ONCE FOR 90 DAYS active Not Available Not Available No t Available Trudhesa 0.725 mg/pump act. (4 mg/mL) nasal spray active Not Available Not Available Not Available Lagevrio 200 mg capsule (EUA) TAKE 4 CAPSULES BY MOUTH EVERY 12 WITH OR WITHOUT FOOD FOR 5 DAYS active Not Available Not Available No t Available [employer] Gomez (migraine ) USE ONE 45 MINUTE TREATMEN T EVERY OTHER DAY FOR PREVENTI ON OR AT ONSET OF MIGRAINE active Not Available Not Available No t Available Vitals Date Recorded Body height Body mass index (BMI) Body weight Provider Name and Address Organization Details Last Updated DateTime 02/10/2025 177.8 cm 26.5 kg/m2 11748.59 g Lakshmi Steele [place] - [facility] 02/10/2025 14:54:59 Social History None recorded. Functional Status None recorded. Mental Status None recorded. Family History Nothing Reported. Medical History Condition Response Hearing Loss Y Past Encounters Encounter ID Performer Location Encounter Start Date Encounter Closed Date Diagnosis/Indication Diagnosis SNOMED-CT Code Diagnosis ICD10 Code Diagnosis IMO Codes Diagnosis Note [id number] KATHRYN RIDDLE PA-C [facility] on [address] [place] [address] 07/02/2024 10:14:07 07/02/2024 11:28:18 Mixed conductive and sensorineural hearing loss of left ear 4227951008 9107 H90.A32 Audiologic al evaluation results: 07/02/2024 Right ear: Mild ring to normal sloping to mild to moderate sensorineu ral hearing loss with excellent word recognitio n. Left ear: Mild sloping to a moderate mixed hearing loss with fair word recognitio n. Tympanomet ry: Right Ear:Type A Left Ear:Type A Sensorineu ral hearing loss 60190131 H90.A21 [id number] PIERRE SULTANA AUD [place] [address] [facility],[address] [place] [address] 08/07/2024 10:00:31 08/07/2024 16:38:23 Mixed conductive and sensorineural hearing loss of left ear 3722524045 9107 H90.A32 [id number] PIERRE SULTANA AUD [place] [address] [place] [address],[place] [address] [place] [address] 09/11/2024 14:57:21 09/15/2024 13:27:05 Sensorineural hearing loss of bilateral ears 089818958 H90.3 [id number] EMMIE JENSEN [place] - [place] [address] [place] [address] 10/15/2024 09:26:29 10/16/2024 07:54:44 Sensorineural hearing loss of bilateral ears 707758260 H90.3 [id number] PIERRE SULTANA AUD [place] [address] [place] [address] 09/22/2024 14:47:03 09/22/2024 15:51:06 Sensorineural hearing loss of bilateral ears 210053155 H90.3 [id number] PIERRE SULTANA AUD [place] [address] [facility],[place] [address] [place] [address] 10/23/2024 12:55:38 10/27/2024 08:26:02 Sensorineural hearing loss of bilateral ears 371349004 H90.3 [id number] PIERRE SULTANA AUD [place] [address] [place] [address] 11/05/2024 08:50:31 11/05/2024 09:28:46 Sensorineural hearing loss of bilateral ears 433565561 H90.3 [id number] INEZ URIAS PA-C [facility] [address] [address] 02/10/2025 14:50:12 02/10/2025 16:13:23 Nasal mucosa dry 32415643 J34.89 [id number] Impacted c erumen in left ear 9134710612 287149 H61.22 [id number] EMMIE JENSEN [place] - [place] [address] [place] [address] 02/25/2025 13:57:19 03/06/2025 05:10:26 Sensorineural hearing loss of bilateral ears 783789174 H90.3 [id number] EMMIE JENSEN [place] - [place] [address] [facility] [address] [place] [address] 07/23/2025 14:40:25 07/24/2025 11:55:52 Sensorineural hearing loss of bilateral ears 888104682 H90.3 [id number] Health Concerns Section Related Observation LastModified by Organization Detai ls LastModified Time None Recorded Concern Status LastModified by Organization Details LastModified Time None Recorded Advance Directives Directive None Recorded Payers Insurance Date Sequence Insurance Name Policy Number Policy Martin Covered Member ID Martin Member ID Guarantor Name 07/23/2025 1 [facility] Gutierrez Borrero [id number] Gutierrez Borrero Notes Date Note Type Note Provider Name and Address Organization Details Recorded Time 10/23/2024 text/html Patient has a known bilateral hearing loss >AD. He lives in [place] and prefers [facility] office but will travel for sooner appt. Patient has [facility] 1700/ear benefit. Discussed various types, models and levels of technology. patient is interested in best technology in rechargeable option. Dispensed Widex Moment 440 Smart ADALGISA R hearing aids 09/11/2024. Excellent fit to real ear. PIERRE RD, AUD 100 [facility],[address], [address], [facility] 10/23/2024 14:35:21 11/05/2024 text/html Patient has a known bilateral hearing loss >AD. He lives in [place] and prefers [facility] office but will travel for sooner appt. Patient has [facility] [employer]/ear benefit. Discussed various types, models and levels of technology. patient is interested in best technology in rechargeable option. Dispensed Widex Moment 440 Smart ADALGISA R hearing aids 09/11/2024. Excellent fit to real ear. Was getting excessive battery drain on left aid. Did rapid repair/replacement . Transferred settings and relinked aids to Iphone . PIERRE SULTANA, AUD 100 [facility],[address], [address], [facility] 11/05/2024 09:16:34 02/10/2025 text/html ROS as noted in the HPI 64 year old male presents for evaluation [...] No nasal saline. ROBYN BRUNER MD [address] [facility],[place] [address], [place], [address], [facility] 02/11/2025 10:03:59 02/25/2025 text/html Patient has a known bilateral hearing loss >AD. He lives in [place] and prefers [facility] office but will travel for sooner appt. Patient has [facility] [employer]/ear benefit. Discussed various types, models and levels [...] gomez, wants to think about. PIERRE SULTANA, AUD 100 [facility], [place], [address], [facility] - [facility] 02/25/2025 14:36:25 07/23/2025 text/html Patient has a known bilateral hearing loss >AD. He lives in [place] and prefers [facility] office but will travel for sooner appt. Patient has [facility] 1700/ear benefit. Discussed various [...] comfort program on gomez, wants to think about.. Annual appt made prior to my group home. PIERRE SULTANA, AUD 100 [facility] [address], [place], [address], [facility] - [facility] 07/23/2025 15:31:05
--- OUTSIDE RECORDS SUMMARY | 2025-08-04 10:55 | XMS_ITS | Encounter Summary ---
Author Organization [facility] Address [address] [place] [address] Phone Care Team Providers Care Globe Tester Name Role Phone Chava Robbins MD Primary Care Provider Zachary Barclay MD Unavailable [phone] Chava Robbins MD Unavailable Francoise Durant MD Unavailable [phone] Chava Robbins MD Unavailable Yvette Smith MD Unavailable Marcia Dooley MD Unavailable Deep Barrios MD Unavailable Chava Robbins MD Primary Care Provider Encounter Details Date Type Department Care Team (Late st Contact Info) Description 04/20/2022 Procedure Pass [facility], Ct Scan - [facility] [address] [place] [address] Social History Tobacco Use Types Packs/Day Years Used Date Smoking Tobacco: Never Smokeless Tobacco: Never Alcohol Use Standard Drinks/Week Comments Never 0 (1 standard drink = 0.6 oz pur e alcohol) rare Child or Family Care Answer Date Record ed Do you have problems with on e of the following making it difficult for you to work, study, or receive health care? No 04/23/2022 Education Answer Date Recorded Are you interested in help w ith more adult education (for example, completing high school, GED, job training, learning the [place] language, technical skills, or developing parenting skills)? No 04/23/2022 Food Answer Date Recorded Within the past 6 months we worried whether our food would run out before we got money to buy more. Never True 04/23/2022 Within the past 6 months the food we bought just didn't last and we didn't have enough money to get more. Never True Residential Stability Answer Date Recor ded What is your housing situation today? I have petey sing 04/23/2022 How many times have you move d in the past 12 months? Zero (I did not move) 04/23/2022 Paying for Meds Answer Date Recorded Do you have trouble paying for medicines? No 04/23/2022 Paying Utility Bills Answer Date Record ed Do you have trouble paying your heating or elect ricity bill? No 04/23/2022 Transportation Answer Date Recorded Has the lack of transportati on kept you from medical appointments or from getting medications? No 04/23/2022 Unemployment Answer Date Recorded Are you currently unemployed or working on a part-time or temporary basis, and looking for work? 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 file Not o n file Not on file documented as of this encounter Plan of Treatment Upcoming Encounters Date Type Department Care Team (Late st Contact Info) Description 12/15/2025 9:30 AM EDT Office Visit [facility] [address] [place] [address] 3rd Floor, [address] [place] [address] Sergio Baxter, [address] [facility] [address] [place] [address] documented as of this encounter Visit Diagnoses Not on filedocumented in this encounter Additional Health Concerns Infection Onset Date Last Indicated Resolved Time CoV-Risk 12/24/2023 12/24/2023 01/04/2024 1:24 AM EDT Assessment Noted Time A Body Mass Index follow-up plan has been documented for the patient 12/15/2020 2:59 PM EST PHQ-2 Depression Total Score: 0 04/23/20 5:11 PM EDT documented as of this encounter Care Teams Globe Tester Relationship Specialty Start Date End Date Chava Robbins MD [address] [place] [address] PCP - General 10/31/13 04/21/25 Chava Robbins MD [address] [place] [address] PCP - General 07/24/25 Zachary Barclay MD [address] [place] [address] Department of Neurology, [place] [address] [email or web address] Historical LMR Provider 02/17/15 Chava Robbins MD [address] [place] [address] Historical LMR Provider 07/28/17 Francoise Durant MD [address] [place] [address] Historical LMR Provider 07/28/17 04/21/25 Chava Robbins MD [address] [place] [address] [email or web address] Insurance Assigned Provider 01/12/24 04/21/25 Yvette Smith MD [address] [place] [address], 2nd [place] [address] Psychiatry 12/15/20 Marcia Dooley MD [address] [place] [address] Orthopedic Surgery 04/22/25 Deep Barrios MD [address] [place] [address] Psychiatry 04/22/25 documented as of this encounter Additional Source Comments The information contained in this document represents components of the legal health record. It is not the complete legal health record.[facility]
--- OUTSIDE RECORDS SUMMARY | 2025-08-04 10:55 | XMS_ITS | Encounter Summary ---
Author Organization [facility] Address [address] [place] [address] [place] [address] Phone Care Team Providers Care Bag Shop Worker Name Role Phone Chava Robbins MD Primary Care Provider Zachary Barclay MD Unavailable [phone] Chava Robbins MD Unavailable Francoise Durant MD Unavailable [phone] Chava Robbins MD Unavailable [phone] Yvette Smith MD Unavailable Marcia Dooley MD Unavailable Deep Barrios MD Unavailable [phone] Chava Robbins MD Primary Care Provider Encounter Details Date Type Department Care Team (Late st Contact Info) Description 11/19/2024 Procedure Pass [facility], [facility] - [address] [place] [address] Social History Tobacco Use Types Packs/Day Years [...] high school, GED, job training, learning the [place] language, technical skills, or developing parenting skills)? No 04/24/2023 Are you concerned about learning? Not on file 04/24/2023 No 04/24/2023 Yes 04/24/2023 Food Answer Date Recorded Within the past [...] your housing situation today? I have petey garza 04/24/2023 How many times have you move [...] 04/23/2022 Digital Access Answer Date Recorded No 04/24/2023 Yes 04/24/2023 Do you have reliable internet access at home? Ye s 04/24/2023 Do you have a device (e.g., phone, tablet, computer) with a working camera? Yes 04/24/2023 Intimate Partner Violence Answer Date R ecorded Are you denied basic needs s uch as food, clothing, or medical care? No 03/14/2024 In the past 12 months have y ou been in a relationship with a person who hurts, threatens, or tries to control you? No 03/14/2024 Are you denied basic needs s uch as food, clothing, or medical care? No 03/14/2024 In the past 12 months have y ou been in a relationship with a person who hurts, threatens, or tries to control you? 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 file Not o n file Not on file documented as of this encounter Plan of Treatment Upcoming Encounters Date Type Department Care Team (Late st Contact Info) Description 12/15/2025 9:30 AM EDT Office Visit [facility] [address] [facility] [place] [facility] 3rd Floor, [address] [place] [address] Sergio Baxter DO 22 [facility] [address] [place] [address] [phone] [email or web address] documented as of this encounter Visit Diagnoses Not on filedocumented in this encounter Additional Health Concerns Assessment Noted Time A Body Mass Index follow-up plan has been documented for the patient 12/15/2020 2:59 PM EST PHQ-2 Depression Total Score: 0 04/24/20 23 7:25 PM EDT documented as of this encounter Care Teams Bag Shop Worker Relationship Specialty Start Date End Date Chava Robbins MD [address] [place] [address] PCP - General 10/31/13 04/21/25 Chava Robbins MD [address] [place] [address] PCP - General 07/24/25 Zachary Barclay MD [address] [place] [address] Department of Neurology, [place] [address] [email or web address] Historical LMR Provider 02/17/15 Chava Robbins MD [address] [place] [address] [email or web address] Historical LMR Provider 07/28/17 Francoise Durant MD [address] [place] [address] [email or web address] Historical LMR Provider 07/28/17 04/21/25 Chava Robbins MD [address] [place] [address] [email or web address] Insurance Assigned Provider 01/12/24 04/21/25 Yvette Smith MD [address] [place] [address] Psychiatry 12/15/20 Marcia Dooley MD [address] [place] [address] Orthopedic Surgery 04/22/25 Deep Barrios MD [address] [place] [address] Psychiatry 04/22/25 documented as of this encounter Additional Source Comments The information contained in this document represents components of the legal health record. It is not the complete legal health record.[facility]
--- OUTSIDE RECORDS SUMMARY | 2025-08-04 10:55 | XMS_ITS | Encounter Summary ---
Author Organization [facility] Address [address] [place] [address] [place] [address] Phone Care Team Providers Care Director Of Collections Name Role Phone Zachary Barclay MD Unavailable [phone] Yvette Smith MD Unavailable [phone] Marcia Dooley MD Unavailable Deep Barrios MD Unavailable Chava Robbins MD Primary Care Provider [phone] Reason for Visit * Reason Comments Med Change Request Encounter Details Date Type Department Care Team (Late st Contact Info) Description 05/04/2025 Refill [facility] [address] [place] [address] [place] [address] Laurie King, PALydiaC [address] [place] [phone] Med Change Request Social History Tobacco Use Types Packs/Day Years 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 documented in this encounter Plan of Treatment Upcoming Encounters Date Type Department Care Team (Late st Contact Info) Description 12/15/2025 9:30 AM EDT Office Visit [facility] [address] [place] [address] 3rd Floor, [address] [place] [address] Sergio Baxter DO [address] [place] [address] documented as of this encounter Visit Diagnoses Not on filedocumented in this encounter Additional Health Concerns Assessment Noted Time A Body Mass Index follow-up plan has been documented for the patient 12/15/2020 2:59 PM EST PHQ-2 Depression Total Score: 0 04/15/20 25 2:32 PM EDT documented as of this encounter Care Teams Director Of Collections Relationship Specialty Start Date End Date Chava Robbins MD [address] [place] [address], 2nd [place] [address] PCP - General 07/24/25 Zachary Barclay MD [address] [place] [address] Department of Neurology, [place] [address] [email or web address] Historical LMR Provider 02/17/15 Yvette Smith MD [address] [place] [address] Department of Neurology, [place] [address] Psychiatry 12/15/20 Marcia Dooley MD [address] [place], [place] [address] [address] Orthopedic Surgery 04/22/25 Deep Barrios MD [address] [place] [address] Psychiatry 04/22/25 documented as of this encounter Additional Source Comments The information contained in this document represents components of the legal health record. It is not the complete legal health record.[facility]
--- OUTSIDE RECORDS SUMMARY | 2025-08-04 10:55 | XMS_ITS | Encounter Summary ---
Author Organization [facility] Address [address] [facility] [address] [place] [address] Phone Care Team Providers Care Hire Car Driver Name Role Phone Chava Robbins MD Primary Care Provider Zachary Barclay MD Unavailable [phone] Chava Robbins MD Unavailable Francoise Durant MD Unavailable Chava Robbins MD Unavailable Yvette Smith MD Unavailable [phone] Marcia Dooley MD Unavailable Deep Barrios MD Unavailable Chava Robbins MD Primary Care Provider Encounter Details Date Type Department Care Team (Late st Contact Info) Description 08/05/2024 Procedure Pass [facility], Ct Scan - [facility] [address] [place] [address] Social History Tobacco Use Types Packs/Day Years [...] high school, GED, job training, learning the [place] language, technical skills, or developing parenting skills)? 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 file Not o n file Not on file documented as of this encounter Plan of Treatment Upcoming Encounters Date Type Department Care Team (Late st Contact Info) Description 12/15/2025 9:30 AM EDT Office Visit [facility] [address] [facility] 3rd [facility], [address] [place], [place] [phone] Sergio Baxter DO [address] [place] [address] [phone] [email or web address] documented as of this encounter Visit Diagnoses Not on filedocumented in this encounter Additional Health Concerns Assessment Noted Time A Body Mass Index follow-up plan has been documented for the patient 12/15/2020 2:59 PM EST PHQ-2 Depression Total Score: 0 04/24/20 23 7:25 PM EDT documented as of this encounter Care Teams Hire Car Driver Relationship Specialty Start Date End Date Chava Robbins MD [address] [place] [address] PCP - General 10/31/13 04/21/25 Chava Robbins MD [address] [place] [address] PCP - General 07/24/25 Zachary Barclay MD [address] [place] [address] Department of Neurology, [place] [address] [email or web address] Historical LMR Provider 02/17/15 Chava Robbins MD [address] [place] [address] Historical LMR Provider 07/28/17 Francoise Durant MD [address] [place] [address] Historical LMR Provider 07/28/17 04/21/25 Chava Robbins MD [address] [place] [address] Insurance Assigned Provider 01/12/24 04/21/25 Yvette Smith MD [address] [place] [address] Psychiatry 12/15/20 Marcia Dooley MD [address] [place] [address] Orthopedic Surgery 04/22/25 Deep Barrios MD [address] [place] [address] Psychiatry 04/22/25 documented as of this encounter Additional Source Comments The information contained in this document represents components of the legal health record. It is not the complete legal health record.[facility]
--- OUTSIDE RECORDS SUMMARY | 2025-08-04 10:55 | XMS_ITS | Encounter Summary ---
Author Organization [facility] Address [address] [facility] [address] [place] [address] Phone Care Team Providers Care Registered Pharmacist Name Role Phone Chava Robbins MD Primary Care Provider Zachary Barclay MD Unavailable [phone] Chava Robbins MD Unavailable Francoise Durant MD Unavailable Yin Gray MD Unavailable Chava Robbins MD Unavailable [phone] Yvette Smith MD Unavailable Marcia Dooley MD Unavailable Deep Barrios MD Unavailable Chava Robbins MD Primary Care Provider Encounter Details Date Type Department Care Team (Late st Contact Info) Description 03/01/2021 Transcribe Orders [facility] [address] [place] [address] Chava Robbins MD [address] [facility], 2nd [place] [address] Social History Tobacco Use Types Packs/Day Years [...] 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, 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 Not o n file Not on file documented as of this encounter Plan of Treatment Upcoming Encounters Date Type Department Care Team (Late st Contact Info) Description 12/15/2025 9:30 AM EDT Office Visit [facility] [address] [facility] 3rd Floor, [address] [place] [address] Sergio Baxter DO [address] [address] documented as of this encounter Visit Diagnoses [...] documented as of this encounter Care Teams Registered Pharmacist Relationship Specialty Start Date End Date Chava Robbins MD [address] [place] [address], 2nd [place] [address] PCP - General 10/31/13 04/21/25 Chava Robbins MD [address] [place] [address] PCP - General 07/24/25 Zachary Barclay MD [address] [place] [address] Department of Neurology, [place] [address] [email or web address] Historical LMR Provider 02/17/15 Chava Robbins MD [address] [place] [address] Historical LMR Provider 07/28/17 Francoise Durant MD [address] [place] [address] Historical LMR Provider 07/28/17 04/21/25 Yin Gray MD [address] [place] [address] Orthopedics & Sports [facility], [place] [address] Historical LMR Provider 07/28/17 Chava Robbins MD [address] [place] [address] Insurance Assigned Provider 01/12/24 04/21/25 Yvette Smith MD [address] [place] [address] Orthopedics Sports [facility], [facility] [place], [place] [phone] Psychiatry 12/15/20 Marcia Dooley MD [address] [place] [address] Orthopedic Surgery 04/22/25 Deep Barrios MD [address] [place] [address] Psychiatry 04/22/25 documented as of this encounter Additional Source Comments The information contained in this document represents components of the legal health record. It is not the complete legal health record.[facility]
--- OUTSIDE RECORDS SUMMARY | 2025-08-04 10:55 | XMS_ITS | Encounter Summary ---
Author Organization [facility] Address [address] [place] [address] [place] [address] Phone Care Team Providers Care Podiatry Professor Name Role Phone Chava Robbins MD Primary Care Provider Zachary Barclay MD Unavailable [phone] Chava Robbins MD Unavailable Francoise Durant MD Unavailable Chava Robbins MD Unavailable Yvette Smith MD Unavailable Marcia Dooley MD Unavailable Deep Barrios MD Unavailable [phone] Chava Robbins MD Primary Care Provider Encounter Details Date Type Department Care Team (Late st Contact Info) Description 07/02/2024 Procedure Pass [facility], [address] [address] Social History Tobacco Use Types Packs/Day Years [...] high school, GED, job training, learning the [place] language, technical skills, or developing parenting skills)? 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 Not o n file Not on file documented as of this encounter Plan of Treatment Upcoming Encounters Date Type Department Care Team (Late st Contact Info) Description 12/15/2025 9:30 AM EDT Office Visit [facility] [address] [facility] 3rd Floor, [address] [place] [address] Sergio Baxter DO [address] [facility] [address] [place] [address] [phone] [email or web address] documented as of this encounter Visit Diagnoses Not on filedocumented in this encounter Additional Health Concerns Assessment Noted Time A Body Mass Index follow-up plan has been documented for the patient 12/15/2020 2:59 PM EST PHQ-2 Depression Total Score: 0 04/24/20 23 7:25 PM EDT documented as of this encounter Care Teams Podiatry Professor Relationship Specialty Start Date End Date Chava Robbins MD [address] [place] [address] PCP - General 10/31/13 04/21/25 Chava Robbins MD [address] [place] [address] PCP - General 07/24/25 Zachary Barclay MD [address] [place] [address] Department of Neurology, Division [place] [address] [email or web address] Historical LMR Provider 02/17/15 Chava Robbins MD [address] [place] [address] Historical LMR Provider 07/28/17 Francoise Durant MD [address] [place] [address] Historical LMR Provider 07/28/17 04/21/25 Chava Robbins MD [address] [place] [address] Insurance Assigned Provider 01/12/24 04/21/25 Yvette Smith MD [address] [place] [address] Psychiatry 12/15/20 Marcia Dooley MD [address] [place] [address] Orthopedic Surgery 04/22/25 Deep Barrios MD [address] [place] [address] Psychiatry 04/22/25 documented as of this encounter Additional Source Comments The information contained in this document represents components of the legal health record. It is not the complete legal health record.[facility]
--- OUTSIDE RECORDS SUMMARY | 2025-08-04 10:55 | XMS_ITS | Encounter Summary ---
Author Organization [facility] Address [address] [place] [id number] Phone Care Team Providers Care Journeyman Welder Name Role Phone Chava Robbins MD Primary Care Provider Zachary Barclay MD Unavailable [phone] Chava Robbins MD Unavailable [phone] Francoise Durant MD Unavailable [phone] Chava Robbins MD Unavailable [phone] Yvette Smith MD Unavailable [phone] Marcia Dooley MD Unavailable Deep Barrios MD Unavailable [phone] Chava Robbins MD Primary Care Provider Reason for Referral * MRI/CAT Scan - Closed Specialty Diagnoses / Procedures Referred By Keyur pope Referred To Contact Radiology Diagnoses Sensorineural hearing loss, unilateral, right ear, with restricted hearing on the contralateral side Procedures MRI Brain CHG MRI BRAIN COMBO CHG MRI BRAIN CHG MRI BRAIN CONTRAST Raegan Hayes PA-C Phone: tel: fax: mailto:[email or web address] Referral ID Status Reason Start Date Expiration Date Visits Re quested Visits Authorized [id number] Closed 07/30/2024 08/29/2024 1 1 Encounter Details Date Type Department Care Team (Late st Contact Info) Description 07/02/2024 Transcribe Orders Virtual Department [address] [place] [address] Raegan Hayes PA-C [address] [place] [id number] [email or web address] Sensorineural hearing loss, unilateral, right ear, with restricted hearing on the contralateral side (Primary Dx) Social History Tobacco Use Types Packs/Day Years [...] high school, GED, job training, learning the Cuban language, technical skills, or developing parenting skills)? [...] your housing situation today? 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 Not on file Not o n file Not on file documented as of this encounter Plan of Treatment Upcoming Encounters Date Type Department Care Team (Late st Contact Info) Description 12/15/2025 9:30 AM EDT Office Visit [facility] [address] [place] [address] [address] Floor, [address] [place] [address] Sergio Baxter, [address] [facility] [address] [place] [id number] [email or web address] documented as of this encounter Results * MRI BRAIN (INTERNAL AUDITORY CANAL) WITH AND WITHOUT CONTRAST (08/11/2024 5:35 PM EST) Anatomical Region Laterality Modality Head Magnetic Resonan ce 08/12/2024 9:10 AM EST Impressions 08/12/2024 9:17 AM EST No cerebellopontine angle or internal auditory canal mass. No inner ear anomaly. Narrative 08/12/2024 9:17 AM EST MRI BRAIN (INTERNAL AUDITORY CANAL) WITH AND WITHOUT CONTRAST Referring clinician's provided indication for this examination in [facility]: Outside Radiology Order; hearing loss TECHNIQUE: Multi-sequence, multi-planar MRI of the brain including high resolution images of the temporal bones was performed before and after intravenous contrast. COMPARISON: MR HEAD WO FINDINGS: Internal Auditory Canals, Cerebellopontine Angles, and Intracranial 7th and 8th Nerve Complexes: No cerebellopontine angle or internal auditory canal mass. Inner Ear Structures: Preserved signal in the labyrinth. No MRI evidence for an inner ear anomaly. Brain Parenchyma: No evidence of acute infarct, mass lesion, or hemorrhage. Ventricular System and Extra-Axial paces: No evidence of midline shift or hydrocephalus. Miscellaneous: The orbits are unremarkable. No significant paranasal sinus disease. The mastoids are clear. Procedure Note Tariq Mccormick MD - 08/12/2024 MRI BRAIN (INTERNAL AUDITORY CANAL) WITH AND WITHOUT CONTRAST Referring clinician's provided indication for this examination in [facility]:Outside Radiology Order; hearing loss TECHNIQUE: Multi-sequence, multi-planar MRI of the brain including highresolution images of the temporal bones was performed before and afterintravenous contrast. COMPARISON: MR HEAD WO FINDINGS: Internal Auditory Canals, Cerebellopontine Angles, and Intracranial 7thand 8th Nerve Complexes: No cerebellopontine angle or internal auditorycanal mass. Inner Ear Structures: Preserved signal in the labyrinth. No MRI evidencefor an inner ear anomaly. Brain Parenchyma: No evidence of acute infarct, mass lesion, orhemorrhage. Ventricular System and Extra-Axial paces: No evidence of midline shift orhydrocephalus. Miscellaneous: The orbits are unremarkable. No significant paranasal sinusdisease. The mastoids are clear. IMPRESSION: No cerebellopontine angle or internal auditory canal mass. No inner earanomaly. Raegan Hayes PA-C IMG MR HEAD/NECK Final R esult documented in this encounter Visit Diagnoses Diagnosis Sensorineural hearing loss, unilateral, right ear, with restricted hearing on the contralateral side- Primary Sensorineural hearing loss, unilateral, right ear, with restricted hearing on the contralateral side documented in this encounter Additional Health Concerns Assessment Noted Time A Body Mass Index follow-up plan has been documented for the patient 12/15/2020 2:59 PM EST PHQ-2 Depression Total Score: 0 04/24/20 23 7:25 PM EDT documented as of this encounter Care Teams Journeyman Welder Relationship Specialty Start Date End Date Chava Robbins MD [address] [place] [phone] PCP - General 10/31/13 04/21/25 Chava Robbins MD [address] [place] [phone] PCP - General 07/24/25 Zachary Barclay MD [address] [place] [address] Department of Neurology, [place] [address] [email or web address] Historical LMR Provider 02/17/15 Chava Robbins MD [address] [place] [phone] Historical LMR Provider 07/28/17 Francoise Durant MD [address] [place] [phone] Historical LMR Provider 07/28/17 04/21/25 Chava Robbins MD [address] [place] [phone] [email or web address] Insurance Assigned Provider 01/12/24 04/21/25 Yvette Smith MD [address] [place] [phone] Psychiatry 12/15/20 Marcia Dooley MD [address] [place] [id number] Orthopedic Surgery 04/22/25 Deep Barrios MD [address] [place] [phone] Psychiatry 04/22/25 documented as of this encounter Additional Source Comments The information contained in this document represents components of the legal health record. It is not the complete legal health record.[facility]
== END 2025-08-04 09:54 | disposition home or self-care (01) ==
LOC: HO.HSMS 09:31
PROVIDERS: PCP Internal Medicine; Visit Provider Psychiatry & Neurology Neurology
DX: G43.711 Chronic migraine without aura, intractable, with status migrainosus (principal)
CPT/HCPCS: 64615; 99499

== ENCOUNTER → 2025-08-04 09:30 | Outpatient (BNVA) | payer OTHER, SELFPAY | PROVIDERS: PCP Internal Medicine; Visit Provider Psychiatry & Neurology Neurology | DX: G43.711 Chronic migraine without aura, intractable, with status migrainosus (principal) | CPT/HCPCS: 64615; J0585 ==